=== PATIENT | female | born 1935 | race Caucasian/White ===

== ENCOUNTER → 2022-11-13 10:07 | Outpatient (CLI) | payer MEDICARE, SELFPAY ==
[2022-11-13 12:38] LABS: COVID19 -Nasal RAPID Negative (Negative)
== END ==
PROVIDERS: PCP Registered Nurse; Referring Provider Orthopaedic Surgery; Visit Provider Orthopaedic Surgery
DX: Z20.822 Contact with and (suspected) exposure to COVID-19 (principal)
CPT/HCPCS: 87635; C9803

== ENCOUNTER 2022-11-17 09:59 | Day surgery (SDC) | payer MEDICARE, SELFPAY ==
[2022-11-10 12:53] VITALS: BMI 27.1
[2022-11-16 16:23] VITALS: BP 113/46; PULSE 45; RESP 16; TEMP 36.2; O2SAT 97
[2022-11-16 17:00] VITALS: O2SAT 97
[2022-11-17] VITALS (14 sets, daily range): BP systolic 90–150; BP diastolic 40–70; PULSE 44–57; RESP 11–18; TEMP 35.9–36.8; O2SAT 91–99; BMI 27.1
[2022-11-17] MEDS: LACTATED RINGERS 1,000 ML 42 ML IV ×2 (10:51→13:39)
[2022-11-17 10:59] LABS: COVID19 -Nasal RAPID Negative (Negative)
[2022-11-17] MEDS: ACETAMINOPHEN 325 MG TABLET 975 MG PO (11:03)
[2022-11-17] MEDS: VANCOMYCIN 1,000 MG/200 ML PIGGYBACK 200 MG IV (11:03)
[2022-11-17] MEDS: CELECOXIB 200 MG CAPSULE PO (11:05)
--- NOTE | 2022-11-17 11:21 | PM.PREOP ---
Pre-operative Note COVID-19 COVID-19 status: Negative Interval Note History & Physical reviewed/Exam performed by Physician: Yes Changes to H&P: No
--- NOTE | 2022-11-17 11:22 | PM.OP.1 ---
Operative Date/Time/Diagnoses Date of procedure: 11/17/22 Time of procedure: 12:00 Pre-op diagnosis: Right hip osteoarthritis Post-op diagnosis: same Procedure & Clinicians Procedure: Right total hip arthroplasty anterior approach Same procedure as scheduled: Yes Indications: The patient has had progressively worsening right hip pain with radiographic changes consistent with arthritis. Non-operative management has failed and the patient has requested total hip replacement. The risks, benefits and alternatives to surgery were discussed with the patient prior to proceeding. Risks discussed included, but were not limited to, failure to relieve pain, leg length discrepancy, dislocation, stiffness, infection, nerve damage, deep venous thrombosis, pulmonary embolism, stroke, coma, heart attack, permanent paralysis and , as well as the potential need for eventual revision of the prosthetic. Surgeon: Michelle Kerr Stencil Machine Operator: Carmen Alves Anesthesia Type: General and Spinal Operative Notes Findings: Severe right hip osteoarthritis, adequate bone and stability Closure Type: primary Specimen(s): none sent Prosthetic devices, grafts, tissues, transplants, or devices: Kerr [employer] Nephew R3 52, neutral poly liner,one 6.5 mm screw, anthology standard offset size 9 standard offset, 36 by -3 Estimated Blood Loss (mL): 250 Blood products transfused: none Procedure in detail: The patient was brought to the operating room. Patient was carefully positioned in the supine position. Time-out was performed and antibiotics were given. Anesthesia was induced. She was positioned in the on the table in order to allow hyperextension of the hip. The right lower extremity was prepped and draped in a standard sterile fashion. An anterior right hip incision was made 1 fingerbreadth lateral to the anterior superior iliac spine and extended distally towards the greater trochanter. Dissection was carried out through skin and subcutaneous tissues. Superficial hemostasis was achieved. The fascia over the tensor fascia edgar was defined and incised with a knife. Two Allis clamps were used to grasp the fascia. Tensor fascia edgar was retracted laterally. A gelpi retractor was placed. Dissection was carried out down along the neck. The circumflex vessels were carefully identified and cauterized with the Aqua Mantis. There was good visualization of the femoral neck. A Cobra was placed superior to the neck and the gluteus fibers were carefully stripped from that superior aspect of the capsule. A 2nd retractor was placed along the inferior aspect of the neck. The rectus insertion along the capsule was partially released. A 3rd retractor that was then gently placed over the rim of the acetabulum under the rectus. Capsule was carefully incised and released from the intertrochanteric line circumferentially superior to the mid sagittal line and inferiorly to the mid sagittal line until the lesser trochanter was palpable. A tag stitch was placed both in the superior and inferior limb of the capsular insertion. Along the acetabulum capsule was also released up to the mid sagittal 12:00 position. A portion of the labrum was resected. A saw was used to perform an osteotomy at the level of the intertrochanteric line and the junction of the superior femoral neck leaving approximately 1 finger breath of residual inferior neck above the lesser trochanter. A 2nd cut was made along the femoral neck at the base of the head and a napkin ring of neck was removed. Corkscrew was placed in the femoral head and the head was removed without difficulty. Retractors were then repositioned around the acetabulum. Residual labrum was resected and additional osteophytes were removed. A reamer that was 4 mm below the templated size was placed by hand in the acetabulum and it was reamed to centralize the acetabulum. It was then reamed up to 2 under the templated size and fluoroscopy was brought in to confirm the position of the reaming and depth of reaming. I reamed 1 under the anticipated size. A trial cup was placed and noted that it was appropriately sized and fluoroscopy confirmed position and depth. The component was open and inserted without difficulty fluoroscopic imaging was used to confirm that the cup had been adequately seated and was well positioned. It was further stabilized with a single screw. Neutral poly liner was placed. The cup was tested and noted to be stable. Attention was then directed to the femur. The femur was gently hyperextended additional capsular release was performed as needed in order to allow adequate visualization of the proximal femur with elevation of the femur. Patient was placed in a hyperextended slightly adducted position with maximum external rotation. Box osteotome was used to check for any residual neck as well as sclerotic bone along the trochanter. [place] pepper was placed in the femur. Additional broaching was performed. Canal finder was used to determine the alignment of the canal and position. Size 1 broach was placed. The canal was then appropriately broached up to the templated size as long as there was adequate stability of the broach and serial advancement of the broach without excessive impingement. Specific attention was directed at avoiding varus attempting to direct the distal aspect of the broach more anteriorly and avoiding excessive anteversion. Trial reduction showed acceptable range of motion, good stability, no posterior impingement, sabianism of leg length and appropriate lateral shuck. I also hyperflexed the hip and checked that there was no impingement anteriorly and there was good stability with flexion, adduction and internal rotation. Marcaine and Exparel were injected. The stem was placed without difficulty. Repeat trial reduction and x-ray showed acceptable overall position, length, and no evidence of the femoral fracture. Final head was placed. Wound was meticulously irrigated with normal saline. The hip was reduced and additional Exparel and Marcaine were injected. The capsule was closed with interrupted nonabsorbable sutures. The fascia of the tensor was closed with interrupted and running Vicryl. No drain was placed. Any tensor fascia edgar muscle that appeared to be contused or injured which was a minimal amount was carefully resected. Capsule around the tensor was injected with Exparel and Marcaine. The skin was closed with barbed stitches for the subcutaneous tissue and skin. We also used surgical glue. The wound was dressed sterilely. Brief Betadine soak was also used and was meticulously irrigated with normal saline. Patient was transferred to recovery room in satisfactory condition. Complications: none Post-operative Condition: stable Disposition: Acute Care Plan for aftercare: The patient will be maintained on a standard total hip replacement protocol with weight bearing as tolerated and anterior hip precautions. The patient will receive Aspirin and sequential compression devices for DVT prophylaxis. The patient will be discharged home when safe for the home environment.
--- NOTE | 2022-11-17 11:52 | SUR.OPER ---
Supine on padded Esko table with bilateral legs secured in padded positioning boots and suspended in positioning spars, operative leg in traction per surgeon. Head on one pillow. Arm on non-operative side secured on padded armboard <90 degrees abduction. Arm on operative side padded and resting across chest then secured with tape over sheet. Padded perineal post in place per surgeon.
[2022-11-17] MEDS: CEFAZOLIN 2 GM/100 ML PREMIX 100 ML IV ×2 (12:10→20:06)
[2022-11-17] MEDS: BUPIVACAINE LIPOSOME 266 MG/20 ML VIAL INJ (12:54)
[2022-11-17] MEDS: BUPIVACAINE 0.5% W/ EPI (PF) 30 ML VIAL INJ (12:54)
[2022-11-17] MEDS: TRANEXAMIC ACID 1,000 MG VIAL 2000 MG INJ ×2 (12:55→14:13)
--- NOTE | 2022-11-17 14:18 | DI.RAD.S_ITS ---
PROCEDURE: XR HIP W PEL IF DONE RT 2V INDICATIONS: TOTAL RIGHT HIP TECHNIQUE: 4 intraoperative fluoroscopic images of right hip acquired. COMPARISON: None. FINDINGS: Intraoperative fluoroscopic images shows right total hip arthroplasty in progress. Right hip alignment is anatomic. IMPRESSION: Fluoro guidance was provided intraoperatively for right total hip arthroplasty. Dictated by: Dionisio Goel M.D. on 11/17/2022 at 14:36 Approved by: Dionisio Goel M.D. on 11/17/2022 at 14:36
--- NOTE | 2022-11-17 14:20 | DI.RAD.S_ITS ---
PROCEDURE: XR HIP W PEL IF DONE RT 2V INDICATIONS: TOTAL RIGHT HIP REPLACEMENT TECHNIQUE: AP pelvis and lateral view of the right hip acquired. COMPARISON: [facility], CR, XR HIP W PEL IF DONE RT 2V, 11/17/2022, 14:37. [facility], CR, XR PELVIS WITH LATERAL HIP RIGHT, 03/21/2022, 15:25. FINDINGS: Bones: Patient is status post right hip arthroplasty, with hardware components in expected positions. The hip joint appears congruent. The visualized bony structures appear intact. At least moderate degenerative change is seen of the contralateral left hip. Age-appropriate lower lumbar spine degenerative changes are noted. Soft tissues: Overlying postoperative changes are noted. No suspicious soft tissue densities. IMPRESSION: Normal postoperative examination. At least moderate degenerative change is seen of the contralateral left hip. Dictated by: Nickolas Bonilla M.D. on 11/17/2022 at 16:55 Approved by: Nickolas Bonilla M.D. on 11/17/2022 at 16:56
[2022-11-17] MEDS: LACTATED RINGERS 1,000 ML 125 ML IV ×2 (16:00→23:27)
[2022-11-17] MEDS: ASPIRIN EC 81 MG TABLET PO (20:06)
[2022-11-17] MEDS: VERAPAMIL 120 MG TABLET PO (20:06)
[2022-11-17] MEDS: DOCUSATE 100 MG CAPSULE PO (20:06)
[2022-11-17] MEDS: ACETAMINOPHEN 325 MG TABLET 650 MG PO (23:24)
[2022-11-17] MEDS: IBUPROFEN 400 MG TABLET PO (23:24)
[2022-11-18 03:40] VITALS: BP 148/63; PULSE 60; RESP 17; TEMP 36.5; O2SAT 92
--- NOTE | 2022-11-18 04:44 | PC.NURSE ---
Pt is AxOx4, needs 1 person geriatric nurse assistant with FWW and cooperative. Pt denies pain. Scheduled Tylenol and Ibuprofen seems helping her pain. Dressing on R hip is C/D/I. Pt uses commode. Pt slept all night. No other changes. Continue monitor...
[2022-11-18 05:34] LABS: Hematocrit 35.9 % (36-46); Hemoglobin 12.4 g/dL (12.0-16.0)
--- NOTE | 2022-11-18 07:22 | P.DS_ITS ---
History of Present Illness History of Present Illness Date Patient Seen: 11/18/22 Time Patient Seen: 07:22 Chief complaint: Hip pain Narrative: Pain is [id number]. Denies fever or chills. No nausea or vomiting. Discharge Providers Provider Discharge Date: 11/18/22 Primary care physician: NAKITA Cole Consults: 11/16/22 06:00 Consult to Anesthesiology Routine Comment: Consulting Provider: Anesthesiologist Reason for consultation: Regional block for post operative pain control 11/17/22 15:41 Consult to Discharge Planning Routine Comment: Consult to Physical Therapy Evaluate & Treat Comment: Physician Instructions: post op [facility] protocol Discharge provider: Suman Amador PA-C Summary Hospital Course Discharge Diagnosis: Severe right hip osteoarthritis Hospital Course: Same procedure as scheduled: Yes Indications: The patient has had progressively worsening right hip pain with radiographic changes consistent with arthritis. Non-operative management has failed and the patient has requested total hip replacement. The risks, benefits and al ternatives to surgery were discussed with the patient prior to proceeding. Risks discussed included, but were not limited to, failure to relieve pain, leg length discrepancy, dislocation, stiffness, infection, nerve damage, deep venous thrombosis, pulmonary embolism, stroke, coma, heart attack, permanent paralysis and , as well as the potential need for eventual revision of the prosthetic. Surgeon: Michelle Kerr Casino Duty Manager: Carmen Alves Anesthesia Type: General and Spinal Operative Notes Findings: Severe right hip osteoarthritis, adequate bone and stability Closure Type: primary Specimen(s): none sent Prosthetic devices, grafts, tissues, transplants, or devices: Kerr [employer] Nephew R3 52, neutral poly liner,one 6.5 mm screw, anthology standard offset size 9 standard offset, 36 by -3 Estimated Blood Loss (mL): 250 Patient admitted to the hospital for the above-mentioned procedure. Patient consented to the same. Patient taken to the operating room underwent right total hip arthroplasty, Right total hip arthroplasty anterior November 17, 2019. Patient back in their room recovering well as in stable condition. Patient will be condition if safe for home environment after physical therapy. Status at Discharge Cognitive/behavioral status at discharge: oriented Functional status at discharge: uses cane/walker Overall status at discharge: patient is progressing back to baseline Exam Vital Signs (past 8 hours): - 11/17/22 23:30 11/18/22 03:40 Temperature 98.2 F 97.7 F Pulse Rate 52 L 60 Respiratory Rate 16 17 Blood Pressure 142/60 H 148/63 H Pulse Oximetry 93 92 Oxygen Flow Rate 0 0 Oxygen Delivery Method Room Air Oxygen Flow Rate 0 Narrative Exam Narrative: 86-year-old in no acute distress. Dressing is clean, dry and intact. Motor functions intact bilateral lower extremities. Sensation grossly intact to light touch bilateral lower extremities. Const General: cooperative and comfortable Resp Effort & Inspection: normal respiratory effort Objective Labs Result Diagrams: 11/18/22 05:11 Labs: Laboratory Results - last 24 hr 11/17/22 11/18/22 10:33 05:11 Hgb 12.4 Hct 35.9 L SARS-CoV-2 (PCR) Negative PFSH Medical History Gout HTN (hypertension) Osteoarthritis Surgical History History of total right knee replacement (2001) Hx of appendectomy Hx of tonsillectomy Social History household members: none Smoking Status: Former smoker alcohol intake: current Discharge Assessment & Plan Assessment and Plan Assessment: Patient progressing as expected status post right total hip arthroplasty, anterior approach Plan of Treatment: Anterior hip precautions, weight-bearing as tolerated PT Multimodal pain management Aspirin and SCDs for DVT prophylaxis Likely discharge home today after physical therapy if safe for home environment. Discharge Plan Discharge Plan Patient Disposition: Home Discharge orders & Medications Discharge Orders: Discharge (Order); Ordered 11/18/22 Ordered By: Suman Amador Prescriptions: New acetaminophen 325 mg Tablet 650 mg PO Q6HR Qty: 60 0RF aspirin 81 mg Tablet,Delayed Release (Dr/Ec) 81 mg PO BID Qty: 60 0RF ibuprofen 400 mg Tablet 400 mg PO Q6HR Qty: 60 0RF oxycodone 5 mg Tablet 5 mg PO Q3HR PRN (Reason: Pain, Moderate (4-6)) Qty: 40 0RF Continued verapamil 120 mg Tablet 120 mg PO BID allopurinol 300 mg Tablet 300 mg PO DAILY hydrochlorothiazide 25 mg Tablet 25 mg PO DAILY atenolol 50 mg Tablet 50 mg PO BID Follow up/Referrals: Jackie Castellanos ARNP [Primary Care Provider] - Michelle Kerr MD [Physician] - As previously scheduled (Follow up with Dr Kerr on 12/01/2022 @ 3:30 pm at [facility] office in [place].) Diet/Activity/Treatments Diet: Diet as Tolerated Activity: Weight bearing as tolerated on right leg. Anterior hip precautions. Skin/Wound/Dressing Care Report to your healthcare provider any signs of infection, such as:: chills, fever, night sweats, unusual drainage and unusual redness Dressing: May shower. Leave Aquacel dressing in place until follow up appointment. No bathing or otherwise soaking incision. Call the office if dressing becomes saturated inside. Visit Report/Discharge Packet Instructions: DI for Hip Replacement Stand Alone Forms: Surgery Discharge Discharge Data Primary Care Provider: Jackie Castellanos Attending Provider: Michelle Kerr
[2022-11-18] MEDS: CEFAZOLIN 2 GM/100 ML PREMIX 100 ML IV (08:08)
[2022-11-18] MEDS: ASPIRIN EC 81 MG TABLET PO (08:31)
[2022-11-18] MEDS: DOCUSATE 100 MG CAPSULE PO (08:31)
[2022-11-18] MEDS: ACETAMINOPHEN 325 MG TABLET 650 MG PO (08:31)
[2022-11-18] MEDS: atenoloL 50 MG TABLET PO (08:31)
[2022-11-18] MEDS: allopurinoL 300 MG TABLET PO (08:32)
[2022-11-18] MEDS: hydroCHLOROthiazide 25 MG TABLET PO (08:32)
[2022-11-18] MEDS: VERAPAMIL 120 MG TABLET PO (08:36)
[2022-11-18] MEDS: IBUPROFEN 400 MG TABLET PO (08:36)
--- NOTE | 2022-11-18 08:41 | CM.DANOTE ---
Initial DCP Assessment Note Pt is an 86 yo female, resident of [place], now POD#1 from right total hip arthroplasty, anterior approach by Dr Kerr PCP: Jackie Castellanos Payer: [facility] MCR Reviewed chart, pt has planned for DC home w/friend to assist, outpatient PT. DC order and summary have been placed by JUSTIN Amador. Now awaiting rec from PT to ensure patient safe for home environment. No barriers identified at this time to patient's safe discharge home w/family to assist; close outpatient f/u recommended. Awaiting PT recommendation and following closely for any DC needs or concerns that may arise ROSA Jason Discharge Planning/Care Management CM Discharge Assessment Start: 11/18/22 08:36 Freq: Status: Active Protocol: Document 11/18/22 08:36 ARMIDA (Rec: 11/18/22 08:40 ARMIDA [id number]) Discharge Planning Assessment Assigned Test Deskman ROSA Lora DPOA/Assigned Designee Name Assigned contact: karen Lovett Contact Information [phone] Advance Directives? Yes Advance Directives on File No History Provided By Medical Record Prior Living Arrangements House Household Members none Type of transporation used prior to Drives own vehicle admit Comment Patient is indp at her baseline Independent with ADL's Yes Is patient alert and oriented? Yes Patient/Family Preference OP PT Therapy Barriers to Discharge No Comment Thus far, it appears patient is a good candidate for return home w/her friend to assist her, outpatient therapies. CM team will plan to follow closely today for PT rec Discharge Plan Home Transportation Arrangement Friend Referrals Initiated None needed Additional Comment Following for DCP needs
--- NOTE | 2022-11-18 08:45 | PT.IIE ---
Current Diagnoses Unilateral primary osteoarthritis, right hip (11/17/22) Surgery Performed Operation Date: 11/17/22 12:15 Actual Procedures p Total Hip Arthroplasty/Anterior Approach(Right) - Michelle Kerr MD Surgical History (Last Reviewed 11/18/22 @ 07:25 by Suman Amador PA-C) History of total right knee replacement (2001) Hx of appendectomy Hx of tonsillectomy Medical History (Last Reviewed 11/18/22 @ 07:25 by Suman Amador PA-C) Gout HTN (hypertension) Osteoarthritis Physical Therapy Inpatient Evaluation/Re-Eval M1 PT/OT-IP Prior Functional Status Start: 11/18/22 14:52 Freq: NEEDED Status: Active Protocol: Document 11/18/22 08:45 AB (Rec: 11/18/22 15:13 AB [id number]) Medical Review Prior Functional Status Medical History Reviewed Yes Communication able to make needs known Mobility and Gait pt stated that she is modified independent without AD but has been using a SPC for the last few months due to pain Social History Household Members none Living Arrangements House Number of Floors (Floors) One Floor Number of Stairs To Enter/Railing? 1 step to enter Home Environment High Toilet,Tub/Shower Home Equipment Four Wheel Walker,Bedside Commode,Shower Seat without Backrest,Grab Bars In Shower Additional Social History Comment pt stated that her friend will stay with her for ~ 3 days to help her M2 PT-IP Current Condition Start: 11/18/22 14:52 Freq: NEEDED Status: Active Protocol: Document 11/18/22 08:45 AB (Rec: 11/18/22 15:13 AB [email or web address]) Physical Therapy Current Condition Current Condition Evaluation Date 11/18/22 Treatment Diagnosis s/p R NYLA anterior approach; difficulty in walking Onset Date 11/17/22 M3 PT-IP Subjective Start: 11/18/22 14:52 Freq: NEEDED Status: Active Protocol: Document 11/18/22 08:45 AB (Rec: 11/18/22 15:13 AB [email or web address]) Subjective Physical Therapy Visit Type Type Initial Evaluation Visit Start Time 08:45 Visit Stop Time 09:55 Total Visit Minutes 70 Number of B[employer] OPERATOR Visits 0 Physical Therapy Visit Comments Patient Comments agreeable to do PT Therapy Pain Assessment Pain Present Pain Present Denied Pain M4 PT-IP Mobility and Gait Start: 11/18/22 14:52 Freq: NEEDED Status: Active Protocol: Document 11/18/22 08:45 AB (Rec: 11/18/22 15:13 AB [id number]) PT-Bed Mobility Assessment Supine to Sit Supine to Sit Standby Assistance PT-Transfer Assessment Sit to and From Stand Sit to and from Stand Standby Assistance,1 Person Assistance,Use of Upper Extremities Transfers Transfer Destination Chair,Toilet Transfer Technique ambulated Transfer Ability Level of Assist Standby Assistance,1 Person Assistance,Use of Upper Extremities Comments Mobility Comments educated pt on anterior hip precautions. pt initially requires cues but after a few repetitions, able to recall. completed supine to sit SBA. requested to use the toilet. completed sit to stand cGA and ambulated to the toilet using fWW SBA to CGA. completed toileting SBA and ambulated to the sink using FWW SBA. cued for hip precautions. ambulated to the chair using FWW SBA. pt has a 4WW. Assess ambulation using 4WW. educated on use of 4WW , locking/unlocking. pt completed sit to stand from chair SBA and ambulated using 4WW SBA to CGA but cues for anterior hip precautions as pt tends to take big strides with LLE. pt sat back on chair . pt educated on stair climbing. ambulated towards platform step using 4WW SBA to CGA. completed up/down step requiring assist with 4WW max A. pt requires max cues for safety and techniques. repeated x 4 but pt continues to require max cues. ambulated back to her room. informed pt that caregiver training needs to be conducted with her friend but pt refused. stated that PT should train her and not her friend. informed pt that PT will do one more but if pt still requires cues, then caregiver training needs to be conducted prior to d/c. also informed pt that a FWW will be recommended due to pt unable to manage a 4WW with stairs and also getting confused with the brakes. pt stated that her friend who lives 2 min away has a FWW she can use. pt ambulated towards the platform step using FWW sBA and completed up/down step using FWW CGA. ambulated 50 ft using FWW SBA and completed up/down step again using FWW CGA and no cues provided. pt ambulated back to her room and sat back on her chair. reviewed her precautions and stair climbing and pt able to recall. positioned on chair. call light and table placed within reach. Gait Assessment Gait Gait Assistance Required: Standby Assistance,Contact Guard Assist Distance (Feet) 50 Able to Maintain Weight Bearing Status Yes During Gait Assistive Devices Assistive Device Gait Belt,Front Wheeled Walker ,4 Wheeled Walker Orthotic/Prosthetic Devices or Brace: No Gait Deviations General Gait Pattern Decreased Feet Clearance Factors Limiting Gait Function Factors Limiting Gait Function Decreased Activity Tolerance, Decreased Strength,Limited Range of Motion,Pain,Poor Balance,Poor Safety Awareness Stair Climbing Assessment Evaluation Level of Assist On Stairs Contact Guard Assistance,2 Person Assistance Devices Stair Climbing Assistive Devices Front Wheel Walker,Four Wheel Walker Technique/Endurance Stair Climbing Direction Ascend and Descend Stair Climbing Technique Step to Step Number of Steps Climbed 1 Query Text: Stair Climbing Set # Repetitions (reps) 6 Comments Stair Climbing Comments pls refer to mobility section for details PT-Balance Assessment Sitting Balance and Reactions Static Sitting Balance Ability Normal Dynamic Sitting Balance Ability Good Standing Balance and Reactions Static Standing Balance Ability Fair Dynamic Standing Balance Ability Fair Device Used FWW M5 PT-IP Objective Assessments Start: 11/18/22 14:52 Freq: NEEDED Status: Active Protocol: Document 11/18/22 08:45 AB (Rec: 11/18/22 15:13 AB [id number]) Orientation Orientation/Cognition Level of Alertness Alert Orientation Name Language Function Ability No Deficits Noted Safety Awareness Decreased Safety Awareness Memory Description Short Term Impaired Gross Range of Motion Lower Extremity ROM Assessment Within Functional Limits Strength Lower Extremity Strength Assessment Right Impaired Hip 3+/5 Knee 4-/5 Coordination Assessment Gross Coordination Gross Coordination WNL Muscle Tone Muscle Tone WNL Yes M6 PT-IP Treatment Start: 11/18/22 14:52 Freq: NEEDED Status: Active Protocol: Document 11/18/22 08:45 AB (Rec: 11/18/22 15:13 AB [email or web address]) Physical Therapy Treatment Education Education Provided Precautions,Weight Bearing Status,Post-Op Packet,Safety M7 PT-IP Assessment and Plan Start: 11/18/22 14:52 Freq: NEEDED Status: Active Protocol: Document 11/18/22 08:45 AB (Rec: 11/18/22 15:13 AB [email or web address]) PT Summary Assessment and Plan Potential Rehabilitation Potential Fair Status of Condition at Evaluation Evolving Summary Impairments Pain,ROM,Strength,Balance, Coordination,Sensation,Tone, Cognition,Bed Mobility, Transfers,Gait,Activity Tolerance Assessment Summary pt requiring SBA to CGA with mobility and recommending use of FWW for safety at this time . pt initially requires max cues for hip precautions and stair climbing techniques but able to complete without cues after a few repetitions. pt refuse to do caregiver training. Goals Bed Mobility Goal Independent Transfer Goal Independent,Front Wheeled Walker,Four Wheeled Walker Gait Goal Independent,Front Wheel Walker ,Four Wheel Walker Gait Distance 200 Other Goals up/down 1 step using FWW mod I Days to Meet Goals 5 Frequency of Treatment Frequency Of Treatment Twice a Day Treatment Plan Physical Therapy Treatment Plan Bed Mobility Training,Transfer Training,Gait Training, Therapeutic Exercise,Balance Retraining,Post Op Education, Discharge Planning,Hot or Cold Pack,Neuromuscular Re-ed, Coordination Retraining,Manual Therapy Precautions Anterior Hip Precautions No Hip Extension,No Hip External Rotation Weight Bearing Status Weight Bearing Status Weight Bear as Tolerated Allowed Weight Bearing Amount (enter % RLE WBAT or #) (%) Recommendations To Nursing Amount of Assist Needed 1 Person Assist Discharge Recommendations PT Discharge Recommendations Home with Assistance, Outpatient PT Equipment Needed for Home Before FWW Discharge Transportation Needs at Discharge Private Vehicle
[2022-11-18 08:59] VITALS: BP 136/58; PULSE 63; RESP 18; TEMP 35.9; O2SAT 96
--- NOTE | 2022-11-18 11:26 | PC.NURSE ---
Pt is A&Ox3. VSS, afebrile on RA. She is tolerating po diet well w/o n/v. She is able to ambulate x1 assist using FWW to BR. Chana MOY at bedside this a.m. clearing patient for discharge home pending PT. She verbalizes understanding of hip precautions, and site care. Pt is cleared for physical therapy this a.m. and patient is determined to discharge home. Her friend (emergency contact) Miguel is notified for transportation and arrives at 1110 to transport patient home. She acknowledges medication instructions, s/sx of infection/complication as well as follow up appointment plan with Ortho previously made. She is escorted by RN via w/ch with her personal FWW and all belongings to private vehicle with her friend Miguel at approximately 1115 a.m.
== END 2022-11-18 11:15 | disposition home or self-care (01) ==
LOC: OR 10:02 → AC 10:02
PROVIDERS: PCP Registered Nurse; Referring Provider Orthopaedic Surgery; Visit Provider Orthopaedic Surgery
PROC: (CPT 27130; principal; 2022-11-17 12:15)
DX: M16.11 Unilateral primary osteoarthritis, right hip (principal); I10 Essential (primary) hypertension; M25.751 Osteophyte, right hip
CPT/HCPCS: 27130; 36415; 73502; 85014; 85018; 87635; 97116; 97162; 97530; C1776; C9803; C9290; J0690; J2704; J3010

== ENCOUNTER 2022-12-05 11:47 | Inpatient (IN) | payer MEDICARE, SELFPAY ==
[2022-12-05] VITALS (26 sets, daily range): BP systolic 102–125; BP diastolic 47–59; PULSE 53–63; RESP 16–28; TEMP 36.1–36.9; O2SAT 91–97; BMI 28.1
--- NOTE | 2022-12-05 13:31 | DI.CT.S_ITS ---
PROCEDURE: CT LE RT W CON INDICATIONS: Suspected abscess s/p right hip replacement 6 weeks ago TECHNIQUE: After the administration of intravenous contrast, 3 mm axial sections acquired of the right hip , with coronal and sagittal reformats. COMPARISON: None. FINDINGS: Image quality: Excellent. Bones: Right hip arthroplasty components are present. There are no unexpected fractures. No periprosthetic lucency. No suspicious bone erosion. Incidental note made partially imaged right knee arthroplasty components Soft tissues: There is a thin-walled, but peripherally enhancing fluid collection deep to the superficial fascia overlying the quadriceps muscle this measures approximately 4.2 cm in transverse diameter maximally, about 8.9 cm in length, and about 1.6 cm in maximal thickness. Irregular, ill-defined intramuscular fluid and inflammation extends into the proximal tissues. Along the most cranial aspect, there are a few foci of soft tissue gas. Most of the inflammatory fat stranding extends lateral, away from the prosthesis. A joint effusion cannot be entirely excluded, but there is no soft tissue gas seen adjacent to bone or prosthetic components. Intrapelvic soft tissues are within normal limits.. IMPRESSION: 1. There is a fluid collection deep to the superficial fascia with mild peripheral enhancement and a few scattered foci of gas suspicious for infection by gas-forming organism. 2. No evidence of osteomyelitis by CT. 3. No definite joint effusion or secondary signs to suggest joint involvement. 4. Discussed with Dr. Burton in the emergency room at 14:15 [place] standard time. Dictated by: Sylvia Sosa M.D. on 12/05/2022 at 13:55 Approved by: Sylvia Sosa M.D. on 12/05/2022 at 14:17
--- NOTE | 2022-12-05 13:38 | ED.EXTPRO ---
HPI - Extremity Problem <NAKITA Bee - Last Filed: 12/05/22 16:28> General Chief complaint: Extremity Problem,Nontraumatic Stated complaint: wound infection Time Seen by Provider: 12/05/22 13:19 Source: patient and EMS Mode of arrival: EMS History of Present Illness HPI Narrative: 87-year-old female, former smoker with history of hypertension and right hip replacement surgery x6 weeks ago, presents to the emergency department with brownish drainage from her right hip incision and increasing pain with movement or weight-bearing. Patient states that she saw her surgeon, Dr. Kerr, last week and was able to work at the incision to obtain a wound culture. Patient states the following day the site had drain copious amounts of brownish fluid. Patient denies any swelling prior to the drainage. Patient states that the pain is now so severe she can not stand, which she was able to do so after her hip surgery and prior to her appointment with her surgeon. Related Data Home Medications Medication Instructions Recorded Confirmed allopurinol 300 mg tablet 300 mg PO DAILY 11/10/22 11/17/22 atenolol 50 mg tablet 50 mg PO BID 11/10/22 11/17/22 hydrochlorothiazide 25 mg tablet 25 mg PO DAILY 11/10/22 11/17/22 verapamil 120 mg tablet 120 mg PO BID 11/10/22 11/17/22 Previous Rx's Medication Instructions Recorded acetaminophen 325 mg tablet 650 mg PO Q6HR #60 tabs 11/18/22 aspirin 81 mg tablet,delayed 81 mg PO BID #60 tabs 11/18/22 release ibuprofen 400 mg tablet 400 mg PO Q6HR #60 tabs 11/18/22 oxycodone 5 mg tablet 5 mg PO Q3HR PRN Pain, Moderate 11/18/22 (4-6) #40 tabs Allergies Allergy/AdvReac Type Severity Reaction Status Date / Time No Known Drug Allergies Allergy Verified 11/17/22 10:26 Review of Systems <NAKITA Bee - Last Filed: 12/05/22 16:28> Review of Systems Narrative: Narrative: See HPI. GENERAL: Denies chills, fatigue, fever, sweats. HEENT: Denies sinus pain, ear pain, sore throat, difficulty swallowing, dizziness. RESPIRATORY: Denies dyspnea, cough, wheezing, sputum. CARDIOVASCULAR: Denies chest pain, palpitations, edema. GASTROINTESTINAL: Denies nausea, vomiting, abdominal pain, diarrhea, constipation. : Denies dysuria, frequency, incontinence, hematuria, urinary retention, flank pain. MSK: Denies weakness. Endorses right hip pain. SKIN: Denies rash, skin lesions, or pruritis. Endorses brownish discharge from right hip surgical site. NEUROLOGIC: Denies weakness, dizziness, headache, numbness, confusion. PSYCHIATRIC: No concerning psychosocial issues. Patient History <NAKITA Bee - Last Filed: 12/05/22 16:28> Medical History Gout HTN (hypertension) Osteoarthritis Surgical History History of total right knee replacement (2001) Hx of appendectomy Hx of tonsillectomy Social History household members: none Smoking Status: Former smoker alcohol intake: current Smoking Status: Former smoker alcohol intake frequency: a few times a month Substance Use Type: does not use Exam <NAKITA Bee - Last Filed: 12/05/22 16:28> Narrative Exam Narrative: Exam Narrative: GENERAL: This is a well-nourished, well-developed patient, in no acute distress. HEAD: Atraumatic. Normocephalic. EYES: Pupils equal round and reactive. Extraocular motions intact. No scleral icterus, injection or drainage. ENT: Nose without bleeding, purulent drainage. Throat without erythema, tonsillar hypertrophy or exudate. Uvula midline. Airway patent. TMs and canals clear. No sinus tenderness. NECK: Trachea midline. No JVD or lymphadenopathy. Nontender. CARDIOVASCULAR: Regular rate and rhythm without murmurs, peripheral pulses intact, cap refill <2 sec. RESPIRATORY: Breath sounds equal and clear bilaterally. No wheezes, rales, or rhonchi. No cough. No increased respiratory effort. No accessory muscle use. GASTROINTESTINAL: Abdomen soft, non-tender, nondistended without guarding or rebound. No suprapubic pain. MSK: Moves all extremities. Normal range of motion, no clubbing or edema. Neurovascularly intact. NEURO: A&O x 3. Positive pedal pulses and normal CMS. SKIN: Warm, dry, no rashes or lesions noted. Positive brownish drainage from proximal surgical site. No signs of increased redness, swelling, fluctuance or red streaking. Initial Vital Signs Initial Vital Signs: Vital Signs Pulse Rate 63 12/05/22 12:12 Respiratory Rate 19 12/05/22 12:12 Blood Pressure 122/59 L 12/05/22 12:12 Pulse Oximetry 94 12/05/22 12:12 Reviewed <Maddie Burton DO - Last Filed: 12/05/22 18:40> Initial Vital Signs Initial Vital Signs: Vital Signs Pulse Rate 63 12/05/22 12:12 Respiratory Rate 19 12/05/22 12:12 Blood Pressure 122/59 L 12/05/22 12:12 Pulse Oximetry 94 12/05/22 12:12 Course <NAKITA Bee - Last Filed: 12/05/22 16:28> Orders Ordered: ED Orders 12/05/22 12:15 Complete Blood Count AUTO DIFF Stat Comprehensive Metabolic Panel Stat Lactate (Lactic Acid) Stat 12/05/22 12:19 MAG [Magnesium] Stat 12/05/22 12:22 Blood Culture Stat Procalcitonin Stat 12/05/22 13:31 CT LE RT w con Stat 12/05/22 14:01 Wound Culture and Gram Stain Stat 12/05/22 14:08 EKG-12 Lead Stat Discontinued Medications Vancomycin HCl (Vancomycin) 1,250 mg in 250 mls @ 250 mls/hr IV NOW ONE Stop: 12/05/22 15:08 Last Infusion: 12/05/22 15:51 Dose: 0 mls/hr Documented By: Admin: 12/05/22 14:16 Dose: 250 mls/hr Documented By: SIMA Piperacillin Sod/Tazobactam (Sod 4.5 gm/ Sodium Chloride) 100 mls @ 200 mls/hr IV NOW ONE Stop: 12/05/22 15:16 Last Infusion: 12/05/22 16:40 Dose: 0 mls/hr Documented By: Infusion: 12/05/22 16:06 Dose: 200 mls/hr Documented By: Infusion: 12/05/22 15:43 Dose: 0 mls/hr Documented By: Admin: 12/05/22 15:43 Dose: 200 mls/hr Documented By: SIMA Potassium Chloride (Potassium Chloride 20 Meq/15 Ml Udc) 40 meq PO NOW ONE Stop: 12/05/22 14:02 Last Admin: 12/05/22 14:12 Dose: 40 meq Documented By: SIMA Consultations Consultation #1: Dr. Ramsey of Orthopedics. Recommended patient be admitted to Medicine with consultation to Orthopedics and Dr. Kerr will evaluate her tomorrow. Consultation #2: Dr. Sinhg, Hospitalist, agreed to admission. Vital Signs Vital signs: Vital Signs - 8 hr 12/05/22 12:29 12/05/22 12:12 12/05/22 12:12 Temperature 98.4 F Pulse Rate 62 63 Pulse Rate [Left Dorsalis Pedis] Respiratory Rate 22 19 Blood Pressure 116/59 L 122/59 L Pulse Oximetry 95 94 Oxygen Delivery Method Room Air Oxygen Flow Rate 12/05/22 12:25 12/05/22 12:25 12/05/22 12:30 Temperature Pulse Rate 62 Pulse Rate [Left Dorsalis Pedis] Respiratory Rate Blood Pressure 116/59 L 113/58 L Pulse Oximetry 92 Oxygen Delivery Method Oxygen Flow Rate 12/05/22 12:30 12/05/22 13:32 12/05/22 12:46 Temperature Pulse Rate 59 L 57 L Pulse Rate [Left Dorsalis Pedis] 60 Respiratory Rate 16 17 Blood Pressure Pulse Oximetry 95 91 Oxygen Delivery Method Oxygen Flow Rate 12/05/22 12:46 12/05/22 13:00 12/05/22 13:00 Temperature Pulse Rate 58 L Pulse Rate [Left Dorsalis Pedis] Respiratory Rate 16 Blood Pressure 107/55 L 120/56 L Pulse Oximetry 92 Oxygen Delivery Method Oxygen Flow Rate 12/05/22 13:15 12/05/22 13:15 12/05/22 13:49 Temperature 97.9 F Pulse Rate 57 L Pulse Rate [Left Dorsalis Pedis] Respiratory Rate 18 Blood Pressure 113/57 L Pulse Oximetry 93 Oxygen Delivery Method Oxygen Flow Rate 12/05/22 13:30 12/05/22 13:30 12/05/22 14:00 Temperature Pulse Rate 60 55 L Pulse Rate [Left Dorsalis Pedis] Respiratory Rate 26 H 17 Blood Pressure 124/56 L Pulse Oximetry 95 95 Oxygen Delivery Method Oxygen Flow Rate 12/05/22 14:30 12/05/22 15:00 12/05/22 15:22 Temperature Pulse Rate 56 L 54 L 54 L Pulse Rate [Left Dorsalis Pedis] Respiratory Rate 24 24 27 H Blood Pressure Pulse Oximetry 94 94 93 Oxygen Delivery Method Oxygen Flow Rate 12/05/22 15:22 12/05/22 15:30 12/05/22 16:00 Temperature Pulse Rate 53 L 55 L Pulse Rate [Left Dorsalis Pedis] Respiratory Rate 28 H 22 Blood Pressure 102/51 L Pulse Oximetry 91 Oxygen Delivery Method Oxygen Flow Rate 12/05/22 16:06 12/05/22 16:06 12/05/22 16:15 Temperature Pulse Rate 57 L Pulse Rate [Left Dorsalis Pedis] Respiratory Rate 22 Blood Pressure 112/54 L 111/53 L Pulse Oximetry 91 Oxygen Delivery Method Oxygen Flow Rate 12/05/22 16:15 12/05/22 16:30 12/05/22 16:30 Temperature Pulse Rate 57 L 56 L Pulse Rate [Left Dorsalis Pedis] Respiratory Rate 22 22 Blood Pressure 105/54 L Pulse Oximetry 92 91 Oxygen Delivery Method Oxygen Flow Rate 12/05/22 16:45 12/05/22 16:45 12/05/22 17:00 Temperature Pulse Rate 55 L Pulse Rate [Left Dorsalis Pedis] Respiratory Rate 20 Blood Pressure 110/53 L 117/56 L Pulse Oximetry 93 Oxygen Delivery Method Oxygen Flow Rate 12/05/22 17:00 12/05/22 17:15 12/05/22 17:15 Temperature Pulse Rate 57 L 55 L Pulse Rate [Left Dorsalis Pedis] Respiratory Rate 22 21 Blood Pressure 109/55 L Pulse Oximetry 93 92 Oxygen Delivery Method Oxygen Flow Rate 12/05/22 17:30 12/05/22 17:30 12/05/22 18:10 Temperature 97.4 F L Pulse Rate 53 L 58 L Pulse Rate [Left Dorsalis Pedis] Respiratory Rate 21 18 Blood Pressure 111/55 L 116/48 L Pulse Oximetry 92 97 Oxygen Delivery Method Oxygen Flow Rate 0 <Maddie Burton, - Last Filed: 12/05/22 18:40> Orders Ordered: ED Orders 12/05/22 12:15 Complete Blood Count AUTO DIFF Stat Comprehensive Metabolic Panel Stat Lactate (Lactic Acid) Stat 12/05/22 12:19 MAG [Magnesium] Stat 12/05/22 12:22 Blood Culture Stat Procalcitonin Stat 12/05/22 13:31 CT LE RT w con Stat 12/05/22 14:01 Wound Culture and Gram Stain Stat 12/05/22 14:08 EKG-12 Lead Stat Discontinued Medications Vancomycin HCl (Vancomycin) 1,250 mg in 250 mls @ 250 mls/hr IV NOW ONE Stop: 12/05/22 15:08 Last Infusion: 12/05/22 15:51 Dose: 0 mls/hr Documented By: Admin: 12/05/22 14:16 Dose: 250 mls/hr Documented By: SIMA Piperacillin Sod/Tazobactam (Sod 4.5 gm/ Sodium Chloride) 100 mls @ 200 mls/hr IV NOW ONE Stop: 12/05/22 15:16 Last Infusion: 12/05/22 16:40 Dose: 0 mls/hr Documented By: Infusion: 12/05/22 16:06 Dose: 200 mls/hr Documented By: Infusion: 12/05/22 15:43 Dose: 0 mls/hr Documented By: Admin: 12/05/22 15:43 Dose: 200 mls/hr Documented By: SIMA Potassium Chloride (Potassium Chloride 20 Meq/15 Ml Udc) 40 meq PO NOW ONE Stop: 12/05/22 14:02 Last Admin: 12/05/22 14:12 Dose: 40 meq Documented By: SIMA Vital Signs Vital signs: Vital Signs - 8 hr 12/05/22 12:29 12/05/22 12:12 12/05/22 12:12 Temperature 98.4 F Pulse Rate 62 63 Pulse Rate [Left Dorsalis Pedis] Respiratory Rate 22 19 Blood Pressure 116/59 L 122/59 L Pulse Oximetry 95 94 Oxygen Delivery Method Room Air Oxygen Flow Rate 12/05/22 12:25 12/05/22 12:25 12/05/22 12:30 Temperature Pulse Rate 62 Pulse Rate [Left Dorsalis Pedis] Respiratory Rate Blood Pressure 116/59 L 113/58 L Pulse Oximetry 92 Oxygen Delivery Method Oxygen Flow Rate 12/05/22 12:30 12/05/22 13:32 12/05/22 12:46 Temperature Pulse Rate 59 L 57 L Pulse Rate [Left Dorsalis Pedis] 60 Respiratory Rate 16 17 Blood Pressure Pulse Oximetry 95 91 Oxygen Delivery Method Oxygen Flow Rate 12/05/22 12:46 12/05/22 13:00 12/05/22 13:00 Temperature Pulse Rate 58 L Pulse Rate [Left Dorsalis Pedis] Respiratory Rate 16 Blood Pressure 107/55 L 120/56 L Pulse Oximetry 92 Oxygen Delivery Method Oxygen Flow Rate 12/05/22 13:15 12/05/22 13:15 12/05/22 13:49 Temperature 97.9 F Pulse Rate 57 L Pulse Rate [Left Dorsalis Pedis] Respiratory Rate 18 Blood Pressure 113/57 L Pulse Oximetry 93 Oxygen Delivery Method Oxygen Flow Rate 12/05/22 13:30 12/05/22 13:30 12/05/22 14:00 Temperature Pulse Rate 60 55 L Pulse Rate [Left Dorsalis Pedis] Respiratory Rate 26 H 17 Blood Pressure 124/56 L Pulse Oximetry 95 95 Oxygen Delivery Method Oxygen Flow Rate 12/05/22 14:30 12/05/22 15:00 12/05/22 15:22 Temperature Pulse Rate 56 L 54 L 54 L Pulse Rate [Left Dorsalis Pedis] Respiratory Rate 24 24 27 H Blood Pressure Pulse Oximetry 94 94 93 Oxygen Delivery Method Oxygen Flow Rate 12/05/22 15:22 12/05/22 15:30 12/05/22 16:00 Temperature Pulse Rate 53 L 55 L Pulse Rate [Left Dorsalis Pedis] Respiratory Rate 28 H 22 Blood Pressure 102/51 L Pulse Oximetry 91 Oxygen Delivery Method Oxygen Flow Rate 12/05/22 16:06 12/05/22 16:06 12/05/22 16:15 Temperature Pulse Rate 57 L Pulse Rate [Left Dorsalis Pedis] Respiratory Rate 22 Blood Pressure 112/54 L 111/53 L Pulse Oximetry 91 Oxygen Delivery Method Oxygen Flow Rate 12/05/22 16:15 12/05/22 16:30 12/05/22 16:30 Temperature Pulse Rate 57 L 56 L Pulse Rate [Left Dorsalis Pedis] Respiratory Rate 22 22 Blood Pressure 105/54 L Pulse Oximetry 92 91 Oxygen Delivery Method Oxygen Flow Rate 12/05/22 16:45 12/05/22 16:45 12/05/22 17:00 Temperature Pulse Rate 55 L Pulse Rate [Left Dorsalis Pedis] Respiratory Rate 20 Blood Pressure 110/53 L 117/56 L Pulse Oximetry 93 Oxygen Delivery Method Oxygen Flow Rate 12/05/22 17:00 12/05/22 17:15 12/05/22 17:15 Temperature Pulse Rate 57 L 55 L Pulse Rate [Left Dorsalis Pedis] Respiratory Rate 22 21 Blood Pressure 109/55 L Pulse Oximetry 93 92 Oxygen Delivery Method Oxygen Flow Rate 12/05/22 17:30 12/05/22 17:30 12/05/22 18:10 Temperature 97.4 F L Pulse Rate 53 L 58 L Pulse Rate [Left Dorsalis Pedis] Respiratory Rate 21 18 Blood Pressure 111/55 L 116/48 L Pulse Oximetry 92 97 Oxygen Delivery Method Oxygen Flow Rate 0 MDM - Extremity (Nontraumatic) <NAKITA Bee - Last Filed: 12/05/22 16:28> Differential Diagnosis Differential diagnosis: Likely other (Wound abscess/infection); Unlikely cellulitis Lab Data Result diagrams: 12/05/22 12:15 12/05/22 12:15 Labs: Lab Results 12/05/22 12/05/22 12/05/22 Range/Units 12:15 12:15 12:15 WBC 8.9 (4.5-11.0) X10^3/uL RBC 3.83 L (4.0-5.2) X10^6/uL Hgb 12.0 (12.0-16.0) g/dL Hct 35.1 L (36-46) % MCV 91.6 (80-100) fL MCH 31.2 (26-34) PG MCHC 34.1 (30-36) % RDW 13.5 (11.6-14.8) % Plt Count 298 (150-400) X10^3/uL Neut % (Auto) 91.0 H (50-75) % Lymph % (Auto) 3.2 L (25-40) % [place] % (Auto) 5.5 (3-14) % Eos % (Auto) 0.0 L (2-4) % Baso % (Auto) 0.3 (0-2) % Neut # (Auto) 8100 H (7355-5276) /uL Lymph # (Auto) 300 L (8423-6019) /uL [place] # (Auto) 500 (0-900) /uL Eos # (Auto) 0 (0-450) /uL Baso # (Auto) 0 (0-100) /uL Sodium 133 L (137-145) mmol/L Potassium 2.6 L* (3.4-5.1) mmol/L Chloride 92 L (98-107) mmol/L Carbon Dioxide 32 (22-32) mmol/L BUN 47 H (7-17) mg/dL Creatinine 1.04 (0.52-1.04) mg/dL Estimated GFR 52 L (>60) mL/min BUN/Creatinine Ratio 45.2 H (6-22) Glucose 104 (80-110) mg/dL Lactate 1.4 (0.7-2.1) mmol/L Calcium 9.2 (8.4-10.2) mg/dL Magnesium (1.6-2.3) mg/dL Total Bilirubin 0.8 (0.2-1.3) mg/dL AST 64 H (14-36) IU/L ALT 31 (<35) IU/L Alkaline Phosphatase 115 (38-126) U/L Total Protein 7.1 (6.3-8.2) g/dL Albumin 3.6 (3.5-5.0) g/dL Globulin 3.5 (1.7-4.1) g/dL Albumin/Globulin Ratio 1.0 (1.0-2.8) Procalcitonin (<0.5) ng/mL 12/05/22 12/05/22 Range/Units 12:19 12:22 WBC (4.5-11.0) X10^3/uL RBC (4.0-5.2) X10^6/uL Hgb (12.0-16.0) g/dL Hct (36-46) % MCV (80-100) fL MCH (26-34) PG MCHC (30-36) % RDW (11.6-14.8) % Plt Count (150-400) X10^3/uL Neut % (Auto) (50-75) % Lymph % (Auto) (25-40) % [place] % (Auto) (3-14) % Eos % (Auto) (2-4) % Baso % (Auto) (0-2) % Neut # (Auto) (1382-6192) /uL Lymph # (Auto) (2859-9949) /uL [place] # (Auto) (0-900) /uL Eos # (Auto) (0-450) /uL Baso # (Auto) (0-100) /uL Sodium (137-145) mmol/L Potassium (3.4-5.1) mmol/L Chloride (98-107) mmol/L Carbon Dioxide (22-32) mmol/L BUN (7-17) mg/dL Creatinine (0.52-1.04) mg/dL Estimated GFR (>60) mL/min BUN/Creatinine Ratio (6-22) Glucose (80-110) mg/dL Lactate (0.7-2.1) mmol/L Calcium (8.4-10.2) mg/dL Magnesium 2.0 (1.6-2.3) mg/dL Total Bilirubin (0.2-1.3) mg/dL AST (14-36) IU/L ALT (<35) IU/L Alkaline Phosphatase (38-126) U/L Total Protein (6.3-8.2) g/dL Albumin (3.5-5.0) g/dL Globulin (1.7-4.1) g/dL Albumin/Globulin Ratio (1.0-2.8) Procalcitonin 0.86 H (<0.5) ng/mL Imaging Data CT Right LE: Radiologist's Impression: [place] [address] CT Scan Report Signed Patient: Mandy Wallace MR#: [id number] : 1935 Acct:[id number] Age/Sex: 87 / F Date of Service: 12/05/22 Loc: ED Accession Number: [id number] ?? Procedure: CT LE RT w con Ordering Provider: Obinna Graff PROCEDURE:? CT LE RT W CON ? INDICATIONS:? Suspected abscess s/p right hip replacement 6 weeks ago ? TECHNIQUE:? After the administration of intravenous contrast, 3 mm axial sections acquired of the right hip , with coronal and sagittal reformats. ? ? COMPARISON:? None. ? FINDINGS:? Image quality:? Excellent.? ? Bones:? Right hip arthroplasty components are present.? There are no unexpected fractures.? No periprosthetic lucency.? No suspicious bone erosion.? Incidental note made partially imaged right knee arthroplasty components ? Soft tissues:? There is a thin-walled, but peripherally enhancing fluid collection deep to the superficial fascia overlying the quadriceps muscle this measures approximately 4.2 cm in transverse diameter maximally, about 8.9 cm in length, and about 1.6 cm in maximal thickness.? Irregular, ill-defined intramuscular fluid and inflammation extends into the proximal tissues.? Along the most cranial aspect, there are a few foci of soft tissue gas.? Most of the inflammatory fat stranding extends lateral, away from the prosthesis.? A joint effusion cannot be entirely excluded, but there is no soft tissue gas seen adjacent to bone or prosthetic components.? Intrapelvic soft tissues are within normal limits.. ? IMPRESSION:? ? 1. There is a fluid collection deep to the superficial fascia with mild peripheral enhancement and a few scattered foci of gas suspicious for infection by gas-forming organism. ? 2. No evidence of osteomyelitis by CT. ? 3. No definite joint effusion or secondary signs to suggest joint involvement. ? 4. Discussed with Dr. Burton in the emergency room at 14:15 [place] standard time.? ? ? Dictated by: Sylvia Sosa M.D. on 12/05/2022 at 13:55 ? ? Approved by: Sylvia Sosa M.D. on 12/05/2022 at 14:17 ? MDM Narrative Medical decision making narrative: 87-year-old female presents to the walk-in clinic with worsening right hip pain and brownish discharge x3 days. Labs revealed increased procalcitonin at 0.86 and hypokalemia of 2.6. Patient was given 40 meq of potassium. Hip CT revealed fluid collection and scattered foci of gas suspicious for infection. Contacted Dr. Ramsey of Orthopedics, who recommended admission. Contacted Dr. Singh, hospitalist, who agreed to admission. Patient is aware and agreeable to admission. <Maddie Burton, DO - Last Filed: 12/05/22 18:40> Lab Data Labs: Lab Results 12/05/22 12/05/22 12/05/22 Range/Units 12:15 12:15 12:15 WBC 8.9 (4.5-11.0) X10^3/uL RBC 3.83 L (4.0-5.2) X10^6/uL Hgb 12.0 (12.0-16.0) g/dL Hct 35.1 L (36-46) % MCV 91.6 (80-100) fL MCH 31.2 (26-34) PG MCHC 34.1 (30-36) % RDW 13.5 (11.6-14.8) % Plt Count 298 (150-400) X10^3/uL Neut % (Auto) 91.0 H (50-75) % Lymph % (Auto) 3.2 L (25-40) % [place] % (Auto) 5.5 (3-14) % Eos % (Auto) 0.0 L (2-4) % Baso % (Auto) 0.3 (0-2) % Neut # (Auto) 8100 H (2094-2727) /uL Lymph # (Auto) 300 L (5086-7609) /uL [place] # (Auto) 500 (0-900) /uL Eos # (Auto) 0 (0-450) /uL Baso # (Auto) 0 (0-100) /uL Sodium 133 L (137-145) mmol/L Potassium 2.6 L* (3.4-5.1) mmol/L Chloride 92 L (98-107) mmol/L Carbon Dioxide 32 (22-32) mmol/L BUN 47 H (7-17) mg/dL Creatinine 1.04 (0.52-1.04) mg/dL Estimated GFR 52 L (>60) mL/min BUN/Creatinine Ratio 45.2 H (6-22) Glucose 104 (80-110) mg/dL Lactate 1.4 (0.7-2.1) mmol/L Calcium 9.2 (8.4-10.2) mg/dL Magnesium (1.6-2.3) mg/dL Total Bilirubin 0.8 (0.2-1.3) mg/dL AST 64 H (14-36) IU/L ALT 31 (<35) IU/L Alkaline Phosphatase 115 (38-126) U/L Total Protein 7.1 (6.3-8.2) g/dL Albumin 3.6 (3.5-5.0) g/dL Globulin 3.5 (1.7-4.1) g/dL Albumin/Globulin Ratio 1.0 (1.0-2.8) Procalcitonin (<0.5) ng/mL 12/05/22 12/05/22 Range/Units 12:19 12:22 WBC (4.5-11.0) X10^3/uL RBC (4.0-5.2) X10^6/uL Hgb (12.0-16.0) g/dL Hct (36-46) % MCV (80-100) fL MCH (26-34) PG MCHC (30-36) % RDW (11.6-14.8) % Plt Count (150-400) X10^3/uL Neut % (Auto) (50-75) % Lymph % (Auto) (25-40) % [place] % (Auto) (3-14) % Eos % (Auto) (2-4) % Baso % (Auto) (0-2) % Neut # (Auto) (2937-0942) /uL Lymph # (Auto) (4760-8846) /uL [place] # (Auto) (0-900) /uL Eos # (Auto) (0-450) /uL Baso # (Auto) (0-100) /uL Sodium (137-145) mmol/L Potassium (3.4-5.1) mmol/L Chloride (98-107) mmol/L Carbon Dioxide (22-32) mmol/L BUN (7-17) mg/dL Creatinine (0.52-1.04) mg/dL Estimated GFR (>60) mL/min BUN/Creatinine Ratio (6-22) Glucose (80-110) mg/dL Lactate (0.7-2.1) mmol/L Calcium (8.4-10.2) mg/dL Magnesium 2.0 (1.6-2.3) mg/dL Total Bilirubin (0.2-1.3) mg/dL AST (14-36) IU/L ALT (<35) IU/L Alkaline Phosphatase (38-126) U/L Total Protein (6.3-8.2) g/dL Albumin (3.5-5.0) g/dL Globulin (1.7-4.1) g/dL Albumin/Globulin Ratio (1.0-2.8) Procalcitonin 0.86 H (<0.5) ng/mL ECG Data Attestation EKG: I personally reviewed and interpreted this ECG as follows: Prior ECG tracings: not available for review Interpretation: Mank: Sinus bradycardia first-degree AV block, rate of 50 5p are 216 QRS of 156 and QTC 503. Patient does not have prior for comparison. Discharge Plan Departure Patient Disposition: Admitted As Inpatient Clinical Impression: Postoperative wound infection of right hip Admit Date/Time: 12/05/22 18:15 Admit Provider: Irina Egan <Maddie Burton, DO - Last Filed: 12/05/22 18:40> Cosign ED Attending Hetalature Attestation: I was immediately available in the department for consultation. Documentation has been reviewed. Case was discussed with myself, labs, imaging were all reviewed, patient recommended started on vancomycin 15 mg per kg as well as Zosyn 4.5 g to cover for MRSA as well as postoperative infection. CT report was called to myself by Radiology has 9 cm fluid collection small foci of air which is deeper than would be expected from having a recent swab is not just under the skin where there is dehiscence. They state does not look suspicious for neck fascia but does look suspicious for possible gas-forming organism. Patient has no evidence of osteomyelitis, and no definitive joint effusion. Patient did not have leukocytosis but does have a positive procalcitonin, potassium was low initial replacement was ordered orally, patient has bundle-branch block but no prior EKGs for comparison. Lactate is negative, cultures from site and blood were obtained. Patient does not have any anemia. Discussed the patient should receive fluids but hold off on 30 cc/kilos bolus. Case was discussed with orthopedic surgery and hospitalist and accepted for admission.
[2022-12-05 13:46] LABS: Add Manual Diff / Slide Review NO; Basophils Absolute Auto 0 /uL (0-100); Basophils Percent Auto 0.3 % (0-2); Eosinophils Absolute Auto 0 /uL (0-450); Hematocrit 35.1 % (36-46); Lymphocytes Absolute Auto 300 /uL (1100-4500); Lymphocytes Percent Auto 3.2 % (25-40); Mean Corpuscular HGB Conc 34.1 % (30-36); Mean Corpuscular Hemoglobin 31.2 PG (26-34); Mean Corpuscular Volume 91.6 fL (80-100); Monocytes Absolute Auto 500 /uL (0-900); Monocytes Percent Auto 5.5 % (3-14); Neutrophils Absolute Auto 8100 /uL (1500-7000); Platelet Count 298 X10^3/uL (150-400); Red Blood Cell Count 3.83 X10^6/uL (4.0-5.2); Red Cell Distribution Width 13.5 % (11.6-14.8); White Blood Cell Count 8.9 X10^3/uL (4.5-11.0)
[2022-12-05 13:52] LABS: Lactate (Lactic Acid) 1.4 mmol/L (0.7-2.1)
[2022-12-05 13:53] LABS: Alanine Aminotransferase 31 IU/L (<35); Albumin 3.6 g/dL (3.5-5.0); Alkaline Phosphatase 115 U/L (38-126); Aspartate Aminotransferase 64 IU/L (14-36); BUN Creatinine Ratio 45.2 (6-22); Bilirubin Total 0.8 mg/dL (0.2-1.3); Blood Urea Nitrogen 47 mg/dL (7-17); Calcium 9.2 mg/dL (8.4-10.2); Carbon Dioxide 32 mmol/L (22-32); Chloride 92 mmol/L (98-107); Estimated Glomerular Filt Rate 52 mL/min (>60); Globulin 3.5 g/dL (1.7-4.1); Glucose 104 mg/dL (80-110); HEMOLYSIS < 15 (0-50); Sodium 133 mmol/L (137-145); Total Protein 7.1 g/dL (6.3-8.2)
[2022-12-05 13:59] LABS: Potassium 2.6 mmol/L (3.4-5.1)
[2022-12-05 14:10] LABS: Procalcitonin 0.86 ng/mL (<0.5)
[2022-12-05] MEDS: POTASSIUM CHLORIDE 20 MEQ/15 ML UDC 40 MEQ PO (14:12)
[2022-12-05] MEDS: VANCOMYCIN 1,250 MG/250 ML PIGGYBACK 250 MG IV (14:16)
[2022-12-05] MEDS: PIPERACILLIN/TAZO 4.5 GM in SODIUM CHLORIDE 0.9% 100 ML IV (15:43)
[2022-12-05] MEDS: POTASSIUM CHLORIDE 20 MEQ TAB 40 MEQ PO (20:40)
[2022-12-05] MEDS: LACTATED RINGERS 1,000 ML 75 ML IV (20:41)
--- NOTE | 2022-12-05 21:41 | P.HP_ITS ---
History of Present Illness History of Present Illness Date Patient Seen: 12/05/22 Time Patient Seen: 21:41 Chief complaint: wound infection Narrative: Mandy Wallace is very pleasant 87-year-old female, former smoker with history of hypertension and right hip replacement surgery on 11/17/2022, presented to the emergency department with clear brown drainage from her right hip incision and increasing pain with movement and inability to weight bear due to pain.? Patient states that she saw her surgeon, Dr. Kerr, last week who used a scapel to open up the wound and was able to obtain a wound culture sample.? Patient states the following day the site had drained copious amounts of clear brown fluid.? Patient denies any swelling prior to the drainage.? Patient states that the pain is now so severe she can not stand, which she was able to do so after her hip surgery and prior to her appointment with her surgeon. She denies fever or chills, informed me that she had not mounted a white count, denies shortness of breath, chest pain, nausea or vomiting. LE CT reported There is a fluid collection deep to the superficial fascia with mild peripheral enhancement and a few scattered foci of gas suspicious for infection by gas-forming organism.She is afebrile, blood pressure 125/51 heart rate 56 respiratory rate 18 oxygen saturation of 96% on room air she weighs 86 kg with a BMI of 28.1. Currently she does not have white count she has a mild left shift though of 8100 sodium 133 potassium 2.6 for which she was repleted 40 mEq use in the ED and repleted again once she was on the floor, chloride 92 BUN 47 EGFR is 52 with a normal creatinine AST 64 and procalcitonin was 0.86, COVID- 19 is pending. Patient History Medical History Essential hypertension Gout HTN (hypertension) Osteoarthritis Surgical History History of right hip replacement History of total right knee replacement (2001) Hx of appendectomy Hx of tonsillectomy Family & Social History Family History Mother Old age Father Alcoholism Social History: household members none Prior Living Arrangements House Safety & Behavioral: Feels Safe in Current Yes Environment Been Physically Hurt or No Threatened By a Person Tobacco & Substance use: Smoking Status Former smoker alcohol intake current alcohol intake frequency a few times a month Substance Use Type does not use Meds Home Medications and Allergies Home Medications Medication Instructions Recorded Confirmed Type allopurinol 300 mg tablet 300 mg PO DAILY 11/10/22 12/05/22 History atenolol 50 mg tablet 50 mg PO BID 11/10/22 12/05/22 History hydrochlorothiazide 25 mg tablet 25 mg PO DAILY 11/10/22 12/05/22 History verapamil 120 mg tablet 120 mg PO BID 11/10/22 12/05/22 History acetaminophen 325 mg tablet 650 mg PO Q6HR #60 tabs 11/18/22 12/05/22 Rx aspirin 81 mg tablet,delayed 81 mg PO BID #60 tabs 11/18/22 12/05/22 Rx release ibuprofen 400 mg tablet 400 mg PO Q6HR #60 tabs 11/18/22 12/05/22 Rx oxycodone 5 mg tablet 5 mg PO Q3HR PRN Pain, Moderate 11/18/22 12/05/22 Rx (4-6) #40 tabs Allergies Allergy/AdvReac Type Severity Reaction Status Date / Time No Known Drug Allergies Allergy Verified 11/17/22 10:26 Review of Systems Review of Systems ROS: Yes All systems reviewed with the patient and are negative except as otherwise documented Exam Vital Signs (past 8 hours): - 12/05/22 13:49 12/05/22 14:00 12/05/22 14:30 Temperature 97.9 F Pulse Rate 55 L 56 L Respiratory Rate 17 24 Blood Pressure Pulse Oximetry 95 94 Oxygen Flow Rate 12/05/22 15:00 12/05/22 15:22 12/05/22 15:22 Temperature Pulse Rate 54 L 54 L Respiratory Rate 24 27 H Blood Pressure 102/51 L Pulse Oximetry 94 93 Oxygen Flow Rate 12/05/22 15:30 12/05/22 16:00 12/05/22 16:06 Temperature Pulse Rate 53 L 55 L 57 L Respiratory Rate 28 H 22 22 Blood Pressure Pulse Oximetry 91 91 Oxygen Flow Rate 12/05/22 16:06 12/05/22 16:15 12/05/22 16:15 Temperature Pulse Rate 57 L Respiratory Rate 22 Blood Pressure 112/54 L 111/53 L Pulse Oximetry 92 Oxygen Flow Rate 12/05/22 16:30 12/05/22 16:30 12/05/22 16:45 Temperature Pulse Rate 56 L 55 L Respiratory Rate 22 20 Blood Pressure 105/54 L Pulse Oximetry 91 93 Oxygen Flow Rate 12/05/22 16:45 12/05/22 17:00 12/05/22 17:00 Temperature Pulse Rate 57 L Respiratory Rate 22 Blood Pressure 110/53 L 117/56 L Pulse Oximetry 93 Oxygen Flow Rate 12/05/22 17:15 12/05/22 17:15 12/05/22 17:30 Temperature Pulse Rate 55 L Respiratory Rate 21 Blood Pressure 109/55 L 111/55 L Pulse Oximetry 92 Oxygen Flow Rate 12/05/22 17:30 12/05/22 18:10 12/05/22 20:35 Temperature 97.4 F L 96.9 F L Pulse Rate 53 L 58 L 56 L Respiratory Rate 21 18 18 Blood Pressure 116/48 L 125/51 L Pulse Oximetry 92 97 96 Oxygen Flow Rate 0 Oxygen Delivery Method Room Air Oxygen Flow Rate 0 Narrative Exam Narrative: Gen: Alert, oriented, well-developed 87 y.o. female, NAD HEENT: normocephalic, atraumatic, conjunctiva clear, sclera non-icteric, oral mucosa pink and moist Neck: supple, full ROM, no JVD, trachea is midline Resp: Lungs CTA, non-labored breathing CV: RRR, no murmur or rubs Abd: soft, non-tender, normoactive BTs Skin: fresh and healing surgical scar on right inguinal area extending to mid thigh, did not appreciate any drainage Neuro: Alert and oriented X 4 w/no focal deficits. Speech clear and coherent. Extremities: is normally ambulatory, currently non-weightbearing due to pain, negative Shanice?s sign Psyche: normal mood and affect. Objective Labs Result Diagrams: 12/05/22 12:15 12/05/22 23:50 Labs: Laboratory Results - last 24 hr 12/05/22 12/05/22 12/05/22 12:15 12:15 12:15 WBC 8.9 RBC 3.83 L Hgb 12.0 Hct 35.1 L MCV 91.6 MCH 31.2 MCHC 34.1 RDW 13.5 Plt Count 298 Neut % (Auto) 91.0 H Lymph % (Auto) 3.2 L [place] % (Auto) 5.5 Eos % (Auto) 0.0 L Baso % (Auto) 0.3 Neut # (Auto) 8100 H Lymph # (Auto) 300 L [place] # (Auto) 500 Eos # (Auto) 0 Baso # (Auto) 0 Sodium 133 L Potassium 2.6 L* Chloride 92 L Carbon Dioxide 32 BUN 47 H Creatinine 1.04 Estimated GFR 52 L BUN/Creatinine Ratio 45.2 H Glucose 104 Lactate 1.4 Calcium 9.2 Magnesium Total Bilirubin 0.8 AST 64 H ALT 31 Alkaline Phosphatase 115 Total Protein 7.1 Albumin 3.6 Globulin 3.5 Albumin/Globulin Ratio 1.0 Procalcitonin 12/05/22 12/05/22 12:19 12:22 WBC RBC Hgb Hct MCV MCH MCHC RDW Plt Count Neut % (Auto) Lymph % (Auto) [place] % (Auto) Eos % (Auto) Baso % (Auto) Neut # (Auto) Lymph # (Auto) [place] # (Auto) Eos # (Auto) Baso # (Auto) Sodium Potassium Chloride Carbon Dioxide BUN Creatinine Estimated GFR BUN/Creatinine Ratio Glucose Lactate Calcium Magnesium 2.0 Total Bilirubin AST ALT Alkaline Phosphatase Total Protein Albumin Globulin Albumin/Globulin Ratio Procalcitonin 0.86 H Assessment & Plan Assessment & Plan narrative: Mandy Wallace is admitted to the inpatient service for further workup and evaluation of a right hip surgical wound infection. Right hip surgical wound infection * Patient was recommended for receiving IV Zosyn and vancomycin which is continued from the ED initial administration * Dr. Kerr will see the patient in the morning consult appreciated * Consideration will be made to either draining of the abscess or washout Hypokalemia, acute, present on admission * Her presenting serum potassium was 2.6 * Patient was administered 40 mEq of oral potassium and repeated on the floor Essential hypertension, chronic * Continue atenolol and verapamil home doses Other independent historians: None Discussion of results, plan of care with independent HCP/other day hospitalist, ED provider Reviewed outside records: Prior surgical records VTE Prophylaxis: Wells risk score 0 X Bilateral SCDs Pharmacological VTE prophylaxis contraindicated in the setting of anticipated surgery. Patient is admitted to the inpatient service due to the severity of disease, r isks of further disease progression and this stay is expected to exceed 2 midnights. FEN: IV fluids: Saline lock, diet: Heart healthy, labs: CBC, C/BMP, liver enzymes, Mag, PT/INR Consultants Dr. Michelle Kerr, orthopedic surgery, care and involvement in the patient?s care is appreciated. Dispo: eventual d/c to home Code status: Full code as discussed with the patient who identifies her friend Miguel Renteria as her surrogate and POA. [X] I have utilized all available immediate resources to obtain, update, or review of the patient's current medications VTE Deep Vein Thrombosis/Pulmonary Embolism Present on Admission: No MIPS - Admit I confirm the patient?s Advance Care Plan is present, Code status is documented, Surrogate decision maker is in patient?s record: Yes MIPS - DC The patient has current or prior documentation of left ventricular ejection fraction (LVEF) less than 40%, or moderate or severely depressed left ventricular systolic function.: No COVID-19 COVID-19 status: Negative Result date/Date tested (Pos, Neg/Pending): 12/06/22
[2022-12-05] MEDS: PIPERACILLIN/TAZO 3.375 GM in SODIUM CHLORIDE 0.9% 100 ML IV (23:22)
[2022-12-06] VITALS (8 sets, daily range): BP systolic 108–139; BP diastolic 47–78; PULSE 60–64; RESP 18–22; TEMP 35.8–36.4; O2SAT 91–98
[2022-12-06 00:04] LABS: HEMOLYSIS < 15 (0-50); Potassium 3.1 mmol/L (3.4-5.1)
[2022-12-06 00:59] LABS: COVID19 -Nasal RAPID Negative (Negative)
[2022-12-06 06:38] LABS: Add Manual Diff / Slide Review NO; Basophils Absolute Auto 100 /uL (0-100); Basophils Percent Auto 0.7 % (0-2); Eosinophils Absolute Auto 0 /uL (0-450); Eosinophils Percent Auto 0.3 % (2-4); Hematocrit 33.1 % (36-46); Hemoglobin 11.5 g/dL (12.0-16.0); Lymphocytes Absolute Auto 600 /uL (1100-4500); Lymphocytes Percent Auto 8.1 % (25-40); Mean Corpuscular HGB Conc 34.6 % (30-36); Mean Corpuscular Hemoglobin 31.7 PG (26-34); Mean Corpuscular Volume 91.7 fL (80-100); Monocytes Absolute Auto 900 /uL (0-900); Monocytes Percent Auto 11.7 % (3-14); Neutrophils Absolute Auto 6300 /uL (1500-7000); Neutrophils Percent Auto 79.2 % (50-75); Platelet Count 268 X10^3/uL (150-400); Red Blood Cell Count 3.62 X10^6/uL (4.0-5.2); Red Cell Distribution Width 13.7 % (11.6-14.8); White Blood Cell Count 7.9 X10^3/uL (4.5-11.0)
[2022-12-06 06:39] LABS: INR 1.4 (0.9-1.3); Prothrombin Time 15.8 SECONDS (10.1-12.7)
[2022-12-06 06:44] LABS: Alanine Aminotransferase 35 IU/L (<35); Albumin 3.2 g/dL (3.5-5.0); Albumin Globulin Ratio 0.9 (1.0-2.8); BUN Creatinine Ratio 46.9 (6-22); Blood Urea Nitrogen 38 mg/dL (7-17); Calcium 8.9 mg/dL (8.4-10.2); Carbon Dioxide 28 mmol/L (22-32); Chloride 96 mmol/L (98-107); Estimated Glomerular Filt Rate > 60 mL/min (>60); Globulin 3.4 g/dL (1.7-4.1); Glucose 81 mg/dL (80-110); Sodium 132 mmol/L (137-145); Total Protein 6.6 g/dL (6.3-8.2)
[2022-12-06 06:49] LABS: Alkaline Phosphatase 101 U/L (38-126); HEMOLYSIS 64 (0-50)
[2022-12-06 06:50] LABS: Aspartate Aminotransferase 71 IU/L (14-36); Magnesium 1.9 mg/dL (1.6-2.3); Potassium 3.4 mmol/L (3.4-5.1)
[2022-12-06] MEDS: POTASSIUM CHLORIDE 20 MEQ TAB 40 MEQ PO (09:30)
[2022-12-06] MEDS: VERAPAMIL 120 MG TABLET PO (09:30)
[2022-12-06] MEDS: atenoloL 50 MG TABLET PO (09:30)
[2022-12-06] MEDS: OXYCODONE IR 5 MG TABLET PO ×2 (10:31→19:47)
[2022-12-06] MEDS: PIPERACILLIN/TAZO 3.375 GM in SODIUM CHLORIDE 0.9% 100 ML IV ×2 (10:39→18:32)
--- NOTE | 2022-12-06 10:42 | PM.CN ---
History of Present Illness Consult details Date Patient Seen: 12/06/22 Time Patient Seen: 10:42 Chief complaint: wound infection Narrative: Mandy Wallace is very pleasant 87-year-old female, former smoker with history of hypertension and right [facility]20[facility] office for drainage and wound cultures, but pain immobility and drainage became so severe the patient presented to the ED. Dr. Kerr's is planning to take the patient back to the OR for I&D tomorrow 12/07/2022 for postoperative infection. Patient is resting comfortably in bed denies right hip pain without movement, intolerable pain with movement. Patient was noted to have potassium of 2.6 on admit likely secondary to HCTZ and decreased fluid intake, patient notes that she does not take a potassium supplement at home. Supplementation provided, Potassium 3.4 today. WBC and platelet count is WNL, H&H 11.5/33.1, INR 1.4, sodium 132, Mag 1.9, Director Hedis 0.81, GFR>60. She denies chest pain, shortness breath, abdominal pain, nausea, or vomiting. Meds Home Medications and Allergies Home Medications Medication Instructions Recorded Confirmed Type allopurinol 300 mg tablet 300 mg PO DAILY 11/10/22 12/05/22 History atenolol 50 mg tablet 50 mg PO BID 11/10/22 12/05/22 History hydrochlorothiazide 25 mg tablet 25 mg PO DAILY 11/10/22 12/05/22 History verapamil 120 mg tablet 120 mg PO BID 11/10/22 12/05/22 History acetaminophen 325 mg tablet 650 mg PO Q6HR #60 tabs 11/18/22 12/05/22 Rx aspirin 81 mg tablet,delayed 81 mg PO BID #60 tabs 11/18/22 12/05/22 Rx release ibuprofen 400 mg tablet 400 mg PO Q6HR #60 tabs 11/18/22 12/05/22 Rx oxycodone 5 mg tablet 5 mg PO Q3HR PRN Pain, Moderate 11/18/22 12/05/22 Rx (4-6) #40 tabs Allergies Allergy/AdvReac Type Severity Reaction Status Date / Time No Known Drug Allergies Allergy Verified 11/17/22 10:26 Review of Systems Review of Systems Narrative: All 12 point systems reviewed with the patient and are negative except otherwise documented. Exam Vital Signs (past 8 hours): - 12/06/22 04:00 12/06/22 07:00 Temperature 97.6 F 96.5 F L Pulse Rate 60 61 Respiratory Rate 19 22 Blood Pressure 108/50 L 108/50 L Pulse Oximetry 96 98 Oxygen Flow Rate 0 0 Oxygen Delivery Method Room Air Oxygen Flow Rate 0 Narrative Exam Narrative: General: Patient is a well-developed, well-nourished female in no distress at this time. HEENT: Normocephalic, atraumatic, extraocular muscles intact, oral pharynx is clear and mucous membranes are moist. Neck is supple and symmetric, trachea is midline, no adenopathy, no thyroid enlargement, nontender, no masses palpated. Negative for JVD Chest: Normal AP diameter and contour without kyphoscoliosis, no nasal flaring, retractions, or tachypneic labored breathing. Lungs: Auscultation of all lung schumacher are clear without adventitious sounds, wheezes, rhonchi, or rales. Cardio: S1 & S2 with regular rate and rhythm without murmur, rubs, or gallops, no carotid bruit, no cardiac pulsations present. Abdomen: Soft nontender, negative for organomegaly, or masses. Bowel sounds are present in all 4 quadrants without guarding or rebound, no CVA tenderness. Musculoskeletal: Right hip noted mild drainage, from incision site, no progressing erythema or inflammation.no edema present. intact pedal pulses are normal. Skin: Warm dry and intact without rashes, ulcerations or petechiae. With the exception of right hip Neuro: Alert and orientated x3, sensation to touch intact, no gross deficits noted of cranial nerves. Psych: Patient has a well-kept appearance, appropriate affect, mental status attitude thought context and judgment are appropriate for age. Objective Labs Result Diagrams: 12/06/22 06:20 12/06/22 06:20 Labs: Laboratory Results - last 24 hr 12/05/22 12/05/22 12/05/22 12:15 12:15 12:15 WBC 8.9 RBC 3.83 L Hgb 12.0 Hct 35.1 L MCV 91.6 MCH 31.2 MCHC 34.1 RDW 13.5 Plt Count 298 Neut % (Auto) 91.0 H Lymph % (Auto) 3.2 L [place] % (Auto) 5.5 Eos % (Auto) 0.0 L Baso % (Auto) 0.3 Neut # (Auto) 8100 H Lymph # (Auto) 300 L [place] # (Auto) 500 Eos # (Auto) 0 Baso # (Auto) 0 PT INR Sodium 133 L Potassium 2.6 L* Chloride 92 L Carbon Dioxide 32 BUN 47 H Creatinine 1.04 Estimated GFR 52 L BUN/Creatinine Ratio 45.2 H Glucose 104 Lactate 1.4 Calcium 9.2 Magnesium Total Bilirubin 0.8 AST 64 H ALT 31 Alkaline Phosphatase 115 Total Protein 7.1 Albumin 3.6 Globulin 3.5 Albumin/Globulin Ratio 1.0 Procalcitonin SARS-CoV-2 (PCR) 12/05/22 12/05/22 12/05/22 12:19 12:22 23:50 WBC RBC Hgb Hct MCV MCH MCHC RDW Plt Count Neut % (Auto) Lymph % (Auto) [place] % (Auto) Eos % (Auto) Baso % (Auto) Neut # (Auto) Lymph # (Auto) [place] # (Auto) Eos # (Auto) Baso # (Auto) PT INR Sodium Potassium 3.1 L Chloride Carbon Dioxide BUN Creatinine Estimated GFR BUN/Creatinine Ratio Glucose Lactate Calcium Magnesium 2.0 Total Bilirubin AST ALT Alkaline Phosphatase Total Protein Albumin Globulin Albumin/Globulin Ratio Procalcitonin 0.86 H SARS-CoV-2 (PCR) 12/06/22 12/06/22 12/06/22 00:31 06:20 06:20 WBC 7.9 RBC 3.62 L Hgb 11.5 L Hct 33.1 L MCV 91.7 MCH 31.7 MCHC 34.6 RDW 13.7 Plt Count 268 Neut % (Auto) 79.2 H Lymph % (Auto) 8.1 L [place] % (Auto) 11.7 Eos % (Auto) 0.3 L Baso % (Auto) 0.7 Neut # (Auto) 6300 Lymph # (Auto) 600 L [place] # (Auto) 900 Eos # (Auto) 0 Baso # (Auto) 100 PT 15.8 H INR 1.4 H Sodium Potassium Chloride Carbon Dioxide BUN Creatinine Estimated GFR BUN/Creatinine Ratio Glucose Lactate Calcium Magnesium Total Bilirubin AST ALT Alkaline Phosphatase Total Protein Albumin Globulin Albumin/Globulin Ratio Procalcitonin SARS-CoV-2 (PCR) Negative 12/06/22 06:20 WBC RBC Hgb Hct MCV MCH MCHC RDW Plt Count Neut % (Auto) Lymph % (Auto) [place] % (Auto) Eos % (Auto) Baso % (Auto) Neut # (Auto) Lymph # (Auto) [place] # (Auto) Eos # (Auto) Baso # (Auto) PT INR Sodium 132 L Potassium 3.4 Chloride 96 L Carbon Dioxide 28 BUN 38 H Creatinine 0.81 Estimated GFR > 60 BUN/Creatinine Ratio 46.9 H Glucose 81 Lactate Calcium 8.9 Magnesium 1.9 Total Bilirubin 1.0 AST 71 H ALT 35 H Alkaline Phosphatase 101 Total Protein 6.6 Albumin 3.2 L Globulin 3.4 Albumin/Globulin Ratio 0.9 L Procalcitonin SARS-CoV-2 (PCR) [facility] Medical History Essential hypertension Gout HTN (hypertension) Osteoarthritis Surgical History History of right hip replacement History of total right knee replacement (2001) Hx of appendectomy Hx of tonsillectomy Family History Mother Old age Father Alcoholism Social History household members: none Tobacco & Substance Use Smoking Status: Former smoker alcohol intake: current Additional Social History 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 1.Wound infection, right, hip, s/p hip repair 11/17/2022, acute, present on admission IV Zosyn and vancomycin -pending bld & wound culture results Dr. Kerr-consulted likely taking the patient to the OR tomorrow 12/07/2022 NPO at midnight- except b/p meds BS Q6hrs while NPO Pain management, antiemetics. PT/OT evaluation postoperatively 2. Hypokalemia, acute, present on admission-resolved Admit potassium 2.6-administered 40 mEq of oral potassium AM today K+ 3.4- monitor electrolytes Hold HCTZ-consider stopping all together & initiate orthostatics q.4 hours while awake once cleared by Dr. Kerr postoperatively to assess for orthostatic hypotension 3. Hyponatremia, mild, acute, present on admission -on admit 133 sodium, a.m. repeat 132 -changed LR to NS at 84 cc/HR for mild hydration prior to surgery correction of hyponatremia 4. Essential hypertension, chronic, present on admission -patient's blood pressures have been running more hypotensive-node evaluation above recommended postoperatively Continue atenolol and verapamil home doses -Hold HCTZ 5.Overweight, mild , acute on chronic, present on admission -as evidence by BMI of 28 -dietary consult ordered regarding nutritional education and information for dietary, lifestyle, exercise, and weight changes. -the patient is at much higher risk for medical and surgical complications due to overweight as it relates to chronic illnesses:, and acute illness. The patient's overweight increases the difficulty and complexity of medical and/or surgical interventions, management and increases the chances of poor outcome such as morbidity and mortality as well as impaired wound healing. Code status: Full Surrogate decision maker: Silvio Time Spent With Patient Critical Care time: I spent a total of [] minutes of critical care time on this patient's care today; this time is exclusive of procedural time.
[2022-12-06] MEDS: VANCOMYCIN 750 MG/150 ML PIGGYBACK 150 MG IV ×2 (11:26→21:26)
[2022-12-06] MEDS: SODIUM CHLORIDE 0.9% 1,000 ML 84 ML IV (13:43)
--- NOTE | 2022-12-06 17:41 | CM.DANOTE ---
DCP Assessment: Patient is admitted for hip infection post NYLA earlier this month. CM met with patient at bedside and explained role. Patient A&Ox4 during CM visit. Patient currently lives in [place] alone in a single level home. Patient has friends who can help her at DC if needed. Patient is Independent with all ADLS and drives at her baseline. patient is planned for surgery 12/07/22 for an I&D of her wound. CM discussed DC planning and she wants home when medically stable but is open to SNF if needed at DC. CM showed patient IPAD medicare choice list. Patient chose [facility] in [place] as her first choice and [facility] as her second choice. CM called Rosanne with [facility] who said she will review patients information however they are not contracted with [facility] so she will need a single case agreement and auth. CM also called and LVM with [facility] to look and review this patient for admission if needed. She will need a PASRR and Insurance Auth if she needs SNF placement. I: [facility] and selfpay PCP: Jackie Castellanos Plan A: DC home with friends to help when medically stable Plan B: DC to SNF - both [facility] and [facility] reviewing- will need PASRR. CM team will follow up with patient after surgery and PT evaluation post I&D Jessica Kerr RNpyrotechnics press tender Discharge Planning/Care Management Advanced directive, confirm from FAMILY Start: 12/05/22 20:13 Freq: Q24H Status: Active Protocol: Document 12/05/22 20:13 AK (Rec: 12/05/22 20:13 AK [id number]) Advance Directive, confirm on record Time 20:13 Person contacted patient to asked friend Miguel Robert received No CM Discharge Assessment Start: 12/06/22 17:36 Freq: Status: Active Protocol: Document 12/06/22 17:36 HS (Rec: 12/06/22 17:41 HS [id number]) Discharge Planning Assessment Assigned Propulsion Systems Engineer Jessica Kerr RNpyrotechnics press tender DPOA/Assigned Designee Name Miguel Renteria Contact Information [phone] Advance Directives? Yes Advance Directives on File No History Provided By Patient,Medical Record Has Patient been admitted in last 30 Yes days? Prior Living Arrangements House Household Members none Type of transporation used prior to Drives own vehicle admit Independent with ADL's Yes Is patient alert and oriented? Yes Caregiver for Another No DME Already Rented / Owned FWW / Walker,Cane Patient/Family Preference Intermediate Facility,OP PT Therapy Comment Patient is wanting home but is open to SNF if needed at DC Barriers to Discharge No Discharge Plan Home Transportation Arrangement Friend VS facility transport Referrals Initiated None needed,Intermediate Additional Comment CM called [facility] patients [facility] for SNF and called [facility] which is her second choice both reviewing - patients would like to DC home but is open to SNF if needed at DC If patient plan is SNF: Has PASSR been No completed? Medicare Choice List Provided Yes Medicare choice list reviewed on patient electronic tablet with SNF/HH Preference 1st [facility] however does not have contract with [facility]- reviewing for single case agreement if needed 2nd - [facility] - who is reviewing Has Agency SNF been contacted Yes Whiteboard Updated in Patient Room with Yes name and ext. # of Propulsion Systems Engineer Review Status In Process Next Review Type Continued Stay Review
[2022-12-07] VITALS (15 sets, daily range): BP systolic 93–155; BP diastolic 45–71; PULSE 55–66; RESP 16–22; TEMP 36.1–36.9; O2SAT 94–98; BMI 28.0
--- NOTE | 2022-12-07 | DI.RAD.S_ITS ---
PROCEDURE: XR HIP RT 1V INDICATIONS: RIGHT HIP REVISION TECHNIQUE: 2 view(s) of the hip acquired. COMPARISON: [facility], [place], XR HIP W PEL IF DONE RT 2V, 11/17/2022, 17:06. FINDINGS: Intraoperative right hip arthroplasty revision. Hardware appears intact. There is good anatomic alignment. IMPRESSION: Intraoperative right hip arthroplasty. Dictated by: Sheri Mcmillan M.D. on 12/07/2022 at 19:08 Approved by: Sheri Mcmillan M.D. on 12/07/2022 at 19:08
--- NOTE | 2022-12-07 | DI.RAD.S_ITS ---
PROCEDURE: XR HIP W PEL IF DONE RT 2V INDICATIONS: RIGHT HIP REVISION TECHNIQUE: AP pelvis and lateral view of the right hip acquired. COMPARISON: [facility], [place], XR HIP W PEL IF DONE RT 2V, 11/17/2022, 17:06. FINDINGS: Bones: Patient is status post right hip arthroplasty, with hardware components in expected positions. The hip joint appears congruent. The visualized bony structures appear intact. Soft tissues: Overlying postoperative changes are noted. No suspicious soft tissue densities. IMPRESSION: Right hip arthroplasty postsurgical change. Dictated by: Sheri Mcmillan M.D. on 12/07/2022 at 19:41 Approved by: Sheri Mcmillan M.D. on 12/07/2022 at 19:42
[2022-12-07] MEDS: PIPERACILLIN/TAZO 3.375 GM in SODIUM CHLORIDE 0.9% 100 ML IV ×3 (02:49→17:04)
[2022-12-07] MEDS: SODIUM CHLORIDE 0.9% 1,000 ML 84 ML IV ×2 (03:30→15:08)
[2022-12-07 04:31] LABS: Acinetobacter baumannii Not Detected (Not Detect); Candida albicans Not Detected (Not Detect); Candida glabrata Not Detected (Not Detect); Candida krusei Not Detected (Not Detect); Candida parapsilosis Not Detected (Not Detect); Candida tropicalis Not Detected (Not Detect); E. coli Not Detected (Not Detect); Enterobacter cloacae complex Not Detected (Not Detect); Enterobacteriaceae species Detected (Not Detect); Enterococcus species Not Detected (Not Detect); Haemophilus influenzae Not Detected (Not Detect); KPC (carbapenem-resist gene) Not Detected (Not Detect); Listeria monocytogenes Not Detected (Not Detect); Neisseria meningitidis Not Detected (Not Detect); Proteus species Not Detected (Not Detect); Pseudomonas aeruginosa Not Detected (Not Detect); Serratia marcescens Not Detected (Not Detect); Staphylococcus species Not Detected (Not Detect); Streptococcus agalactiae (Gr B Not Detected (Not Detect); Streptococcus pneumonia Not Detected (Not Detect); Streptococcus pyogenes (Gr A) Not Detected (Not Detect); Streptococcus species Not Detected (Not Detect)
[2022-12-07 06:14] LABS: Add Manual Diff / Slide Review NO; Basophils Absolute Auto 0 /uL (0-100); Basophils Percent Auto 0.5 % (0-2); Eosinophils Absolute Auto 100 /uL (0-450); Eosinophils Percent Auto 1.5 % (2-4); Hematocrit 31.3 % (36-46); Hemoglobin 10.8 g/dL (12.0-16.0); Lymphocytes Absolute Auto 700 /uL (1100-4500); Lymphocytes Percent Auto 9.8 % (25-40); Mean Corpuscular HGB Conc 34.5 % (30-36); Mean Corpuscular Hemoglobin 31.5 PG (26-34); Mean Corpuscular Volume 91.2 fL (80-100); Monocytes Absolute Auto 1000 /uL (0-900); Monocytes Percent Auto 13.5 % (3-14); Neutrophils Absolute Auto 5300 /uL (1500-7000); Neutrophils Percent Auto 74.7 % (50-75); Platelet Count 260 X10^3/uL (150-400); Red Blood Cell Count 3.44 X10^6/uL (4.0-5.2); Red Cell Distribution Width 13.7 % (11.6-14.8)
[2022-12-07 06:21] LABS: INR 1.4 (0.9-1.3); Prothrombin Time 16.3 SECONDS (10.1-12.7)
[2022-12-07 06:28] LABS: Alanine Aminotransferase 37 IU/L (<35); Albumin 2.9 g/dL (3.5-5.0); Albumin Globulin Ratio 0.9 (1.0-2.8); Alkaline Phosphatase 111 U/L (38-126); Aspartate Aminotransferase 93 IU/L (14-36); BUN Creatinine Ratio 32.6 (6-22); Bilirubin Total 0.8 mg/dL (0.2-1.3); Blood Urea Nitrogen 28 mg/dL (7-17); Calcium 8.5 mg/dL (8.4-10.2); Carbon Dioxide 26 mmol/L (22-32); Chloride 101 mmol/L (98-107); Estimated Glomerular Filt Rate > 60 mL/min (>60); Globulin 3.2 g/dL (1.7-4.1); Glucose 97 mg/dL (80-110); HEMOLYSIS < 15 (0-50); Magnesium 1.8 mg/dL (1.6-2.3); Potassium 2.9 mmol/L (3.4-5.1); Sodium 137 mmol/L (137-145); Total Protein 6.1 g/dL (6.3-8.2)
[2022-12-07] MEDS: VERAPAMIL 120 MG TABLET PO ×2 (08:53→20:47)
[2022-12-07] MEDS: POTASSIUM CHLORIDE 20 MEQ/15 ML UDC 40 MEQ PO (08:53)
[2022-12-07] MEDS: atenoloL 50 MG TABLET PO ×2 (08:53→20:47)
[2022-12-07] MEDS: VANCOMYCIN 750 MG/150 ML PIGGYBACK 150 MG IV ×2 (08:53→21:17)
--- NOTE | 2022-12-07 11:26 | P.PN_ITS ---
Subjective Subjective Date Patient Seen: 12/07/22 Interval history: 87-year-old female with history of hypertension, gout, OA, right total hip 11/17/2022 admitted due to right hip infection. Patient is scheduled for OR I & D later today. She reports continued significant pain and drainage from the right hip. Exam Vital Signs (past 8 hours): - 12/07/22 07:52 12/07/22 08:00 Temperature 96.9 F L Pulse Rate 66 Respiratory Rate 22 Blood Pressure 122/56 L Pulse Oximetry 95 95 Oxygen Delivery Method Room Air Oxygen Flow Rate 0 0 Oxygen Delivery Method Room Air Oxygen Flow Rate 0 Narrative Exam Narrative: General: Alert, NAD Lungs: Clear Heart: Regular rhythm Extremities: There is a clean right hip dressing, no pretibial edema Neurological: Normal affect and speech Objective Labs 12/07/22 05:56 12/07/22 05:56 Labs: Laboratory Results - last 24 hr 12/07/22 12/07/22 12/07/22 05:56 05:56 05:56 WBC 7.0 RBC 3.44 L Hgb 10.8 L Hct 31.3 L MCV 91.2 MCH 31.5 MCHC 34.5 RDW 13.7 Plt Count 260 Neut % (Auto) 74.7 Lymph % (Auto) 9.8 L [place] % (Auto) 13.5 Eos % (Auto) 1.5 L Baso % (Auto) 0.5 Neut # (Auto) 5300 Lymph # (Auto) 700 L [place] # (Auto) 1000 H Eos # (Auto) 100 Baso # (Auto) 0 PT 16.3 H INR 1.4 H Sodium 137 Potassium 2.9 L Chloride 101 Carbon Dioxide 26 BUN 28 H Creatinine 0.86 Estimated GFR > 60 BUN/Creatinine Ratio 32.6 H Glucose 97 Calcium 8.5 Magnesium 1.8 Total Bilirubin 0.8 AST 93 H ALT 37 H Alkaline Phosphatase 111 Total Protein 6.1 L Albumin 2.9 L Globulin 3.2 Albumin/Globulin Ratio 0.9 L A. baumannii (PCR) Daja albicans (PCR) C. glabrata (PCR) C. krusei (PCR) C. parapsilosis (PCR) C. tropicalis (PCR) Enterobacteriac sp PCR E. cloacae complex PCR Enterococcus sp PCR E. coli (PCR) H. influenzae (PCR) Klebsiella oxytoca PCR Klebsiella pneumoniae List. monocytogenes PCR N. meningitidis (PCR) Proteus species (PCR) Serratia marcescens PCR Staphylococcus sp PCR Staph aureus (PCR) mecA-Methicil Res Gene Streptococcus sp PCR Group A Strep (PCR) Strep agalactiae (PCR) Strep pneumoniae (PCR) P. aeruginosa (PCR) Omaira/B-Vanco Res Genes KPC-Carbap Res Gene PCR 12/07/22 12:15 WBC RBC Hgb Hct MCV MCH MCHC RDW Plt Count Neut % (Auto) Lymph % (Auto) [place] % (Auto) Eos % (Auto) Baso % (Auto) Neut # (Auto) Lymph # (Auto) [place] # (Auto) Eos # (Auto) Baso # (Auto) PT INR Sodium Potassium Chloride Carbon Dioxide BUN Creatinine Estimated GFR BUN/Creatinine Ratio Glucose Calcium Magnesium Total Bilirubin AST ALT Alkaline Phosphatase Total Protein Albumin Globulin Albumin/Globulin Ratio A. baumannii (PCR) Not detected Daja albicans (PCR) Not detected C. glabrata (PCR) Not detected C. krusei (PCR) Not detected C. parapsilosis (PCR) Not detected C. tropicalis (PCR) Not detected Enterobacteriac sp PCR Detected H E. cloacae complex PCR Not detected Enterococcus sp PCR Not detected E. coli (PCR) Not detected H. influenzae (PCR) Not detected Klebsiella oxytoca PCR Not detected Klebsiella pneumoniae Not detected List. monocytogenes PCR Not detected N. meningitidis (PCR) Not detected Proteus species (PCR) Not detected Serratia marcescens PCR Not detected Staphylococcus sp PCR Not detected Staph aureus (PCR) Not detected mecA-Methicil Res Gene Not Reportable Streptococcus sp PCR Not detected Group A Strep (PCR) Not detected Strep agalactiae (PCR) Not detected Strep pneumoniae (PCR) Not detected P. 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 Right hip surgical wound infection -wound cultures growing Citrobacter -scheduled right hip I & D and washout -continue Zosyn and vancomycin for now -may need ID input on antibiotic management -continue IV Dilaudid, oxycodone as needed 2. Hypertension, chronic -continue atenolol and verapamil -hold HCTZ secondary to dec K 3. Hypokalemia, present on admission -likely secondary to her thiazide diuretic -received oral potassium replacement 4. History of gout -continue allopurinol Time Spent With Patient Critical Care time: I spent a total of [] minutes of critical care time on this patient's care today; this time is exclusive of procedural time.
--- NOTE | 2022-12-07 13:43 | DIET.CONS ---
Dietary Consultation Note Admission Date: 12/05/2022 18:15 Assessment: 87y F admitted for surgical infection after hip replacement referred to nutrition for BMI 28. Pt currently NPO awaiting surgery washout on infected hip. Pt excited to be able to potentially eat a sandwich tonight after surgery. Kitchen likely to be closed, RD will put small meal box in patient fridge with pt name tag on it, pt requests turkey sandwich. Pt not currently appropriate for weight loss counselling r/t advanced age and increased nutrient needs for healing secondary to repeat surgeries and post-op infection. Ht: 175.26 cm Wt: 86 kg BMI: 28.1 Last BM: 12/07/22 (12/07/22 13:00) MNA: 12 Senthil Score: 20 Diet: 12/07/22 13:33 NPO Diet Diet Modifications: NPO Type: NPO NOW for Procedure Labs: RBC 3.44 X10^6/uL (4.0-5.2) L 12/07/22 05:56 Hgb 10.8 g/dL (12.0-16.0) L 12/07/22 05:56 Hct 31.3 % (36-46) L 12/07/22 05:56 Creatinine 0.86 mg/dL (0.52-1.04) 12/07/22 05:56 Lactate 1.4 mmol/L (0.7-2.1) 12/05/22 12:15 Nutrition Diagnosis: increased nutrient needs for healing (Vit A, Vit C, zinc, protein) r/t post-operative infection aeb pt s/p hip replacement readmitted with infection. Interventions: 1. Educated pt on nutrients for healing including food sources of each on handout. Pt happy to have information and will be sure to eat foods from all categories during healing. Electronically Signed by: Mary Mishra 12/07/22 13:43 Clinical Dietitian [address] [id number]
[2022-12-07] MEDS: POTASSIUM CHLORIDE 20 MEQ TAB PO (14:08)
--- NOTE | 2022-12-07 15:53 | PM.HP.1 ---
History of Present Illness History of Present Illness Date Patient Seen: 12/07/22 Time Patient Seen: 15:30 Chief complaint: wound infection Narrative: Mandy notes that after I saw her last Tuesday she had some slight increased drainage and pain it progressively worsened and then it was painful enough that she called 911 and came to the hospital on Tuesday. She did have some increased drainage. An increased right hip pain. She was really not having any pain when I saw her in clinic but she did have a small opening in her wound. She has not had fevers or chills. She has a history of a right total hip arthroplasty anterior approach on 11/17/2022. She notes she did well but she was having a wound issue. Patient History Medical History Essential hypertension Gout HTN (hypertension) Osteoarthritis Surgical History History of right hip replacement History of total right knee replacement (2001) Hx of appendectomy Hx of tonsillectomy Family & Social History Family History Mother Old age Father Alcoholism Social History: household members none Prior Living Arrangements House Safety & Behavioral: Feels Safe in Current Yes Environment Been Physically Hurt or No Threatened By a Person Tobacco & Substance use: Smoking Status Former smoker alcohol intake current alcohol intake frequency a few times a month Substance Use Type does not use Meds Home Medications and Allergies Home Medications Medication Instructions Recorded Confirmed Type allopurinol 300 mg tablet 300 mg PO DAILY 11/10/22 12/05/22 History atenolol 50 mg tablet 50 mg PO BID 11/10/22 12/05/22 History hydrochlorothiazide 25 mg tablet 25 mg PO DAILY 11/10/22 12/05/22 History verapamil 120 mg tablet 120 mg PO BID 11/10/22 12/05/22 History acetaminophen 325 mg tablet 650 mg PO Q6HR #60 tabs 11/18/22 12/05/22 Rx aspirin 81 mg tablet,delayed 81 mg PO BID #60 tabs 11/18/22 12/05/22 Rx release ibuprofen 400 mg tablet 400 mg PO Q6HR #60 tabs 11/18/22 12/05/22 Rx oxycodone 5 mg tablet 5 mg PO Q3HR PRN Pain, Moderate 11/18/22 12/05/22 Rx (4-6) #40 tabs Allergies Allergy/AdvReac Type Severity Reaction Status Date / Time No Known Drug Allergies Allergy Verified 11/17/22 10:26 Review of Systems Review of Systems Narrative: Denies fevers or chills but notes that she did not feel it all well at all when she was home on Tuesday. She is a little better since she is been in the hospital but she is still having ongoing right hip pain. Exam Vital Signs (past 8 hours): - 12/07/22 08:00 12/07/22 11:56 12/07/22 14:00 Temperature 97.3 F L Pulse Rate 56 L Respiratory Rate 20 Blood Pressure 123/57 L Pulse Oximetry 95 95 95 Oxygen Delivery Method Room Air Room Air Oxygen Flow Rate 0 0 0 Oxygen Delivery Method Room Air Oxygen Flow Rate 0 Narrative Exam Narrative: HEENT is benign she is alert she is oriented, she is conversant and pleasant, does not appear to be in distress, lungs are clear, cor slightly irregular rhythm, abdomen benign, examination of the right hip shows about a 2 cm x 1 cm opening of the proximal wound there is slight erythema and there is a small amount of drainage, there is also some pain along the anterior aspect of the thigh, mild pain with range of motion, leg lengths look symmetrical there is minimal pain with range of motion of her hip, calf is soft distally, she is neurologically intact distally Objective Labs 12/07/22 05:56 12/07/22 05:56 Labs: Laboratory Results - last 24 hr 12/07/22 12/07/22 12/07/22 05:56 05:56 05:56 WBC 7.0 RBC 3.44 L Hgb 10.8 L Hct 31.3 L MCV 91.2 MCH 31.5 MCHC 34.5 RDW 13.7 Plt Count 260 Neut % (Auto) 74.7 Lymph % (Auto) 9.8 L [place] % (Auto) 13.5 Eos % (Auto) 1.5 L Baso % (Auto) 0.5 Neut # (Auto) 5300 Lymph # (Auto) 700 L [place] # (Auto) 1000 H Eos # (Auto) 100 Baso # (Auto) 0 PT 16.3 H INR 1.4 H Sodium 137 Potassium 2.9 L Chloride 101 Carbon Dioxide 26 BUN 28 H Creatinine 0.86 Estimated GFR > 60 BUN/Creatinine Ratio 32.6 H Glucose 97 Calcium 8.5 Magnesium 1.8 Total Bilirubin 0.8 AST 93 H ALT 37 H Alkaline Phosphatase 111 Total Protein 6.1 L Albumin 2.9 L Globulin 3.2 Albumin/Globulin Ratio 0.9 L A. baumannii (PCR) Daja albicans (PCR) C. glabrata (PCR) C. krusei (PCR) C. parapsilosis (PCR) C. tropicalis (PCR) Enterobacteriac sp PCR E. cloacae complex PCR Enterococcus sp PCR E. coli (PCR) H. influenzae (PCR) Klebsiella oxytoca PCR Klebsiella pneumoniae List. monocytogenes PCR N. meningitidis (PCR) Proteus species (PCR) Serratia marcescens PCR Staphylococcus sp PCR Staph aureus (PCR) mecA-Methicil Res Gene Streptococcus sp PCR Group A Strep (PCR) Strep agalactiae (PCR) Strep pneumoniae (PCR) P. aeruginosa (PCR) Omaira/B-Vanco Res Genes KPC-Carbap Res Gene PCR 12/07/22 12:15 WBC RBC Hgb Hct MCV MCH MCHC RDW Plt Count Neut % (Auto) Lymph % (Auto) [place] % (Auto) Eos % (Auto) Baso % (Auto) Neut # (Auto) Lymph # (Auto) [place] # (Auto) Eos # (Auto) Baso # (Auto) PT INR Sodium Potassium Chloride Carbon Dioxide BUN Creatinine Estimated GFR BUN/Creatinine Ratio Glucose Calcium Magnesium Total Bilirubin AST ALT Alkaline Phosphatase Total Protein Albumin Globulin Albumin/Globulin Ratio A. baumannii (PCR) Not detected Daja albicans (PCR) Not detected C. glabrata (PCR) Not detected C. krusei (PCR) Not detected C. parapsilosis (PCR) Not detected C. tropicalis (PCR) Not detected Enterobacteriac sp PCR Detected H E. cloacae complex PCR Not detected Enterococcus sp PCR Not detected E. coli (PCR) Not detected H. influenzae (PCR) Not detected Klebsiella oxytoca PCR Not detected Klebsiella pneumoniae Not detected List. monocytogenes PCR Not detected N. meningitidis (PCR) Not detected Proteus species (PCR) Not detected Serratia marcescens PCR Not detected Staphylococcus sp PCR Not detected Staph aureus (PCR) Not detected mecA-Methicil Res Gene Not Reportable Streptococcus sp PCR Not detected Group A Strep (PCR) Not detected Strep agalactiae (PCR) Not detected Strep pneumoniae (PCR) Not detected P. 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 She did have 1 positive blood culture. I have recommended irrigation and debridement and probable polyethylene exchange of her right hip. Serious nature of the procedure options risks benefits and complications were discussed in detail. She has had only short-term symptoms and I have recommended irrigation debridement polyethylene exchange do not think that she necessarily needs two-stage exchange arthroplasty this point. Hopefully we can get her settled down with IV antibiotics and a polyethylene exchange. She likely will need IV antibiotics for 3-6 weeks postoperatively. She lives by herself at home and will likely need a stay in rehab but may be transitioned to home IV antibiotics at some point. Time Spent With Patient Critical Care time: I spent a total of [] minutes of critical care time on this patient's care today; this time is exclusive of procedural time.
--- NOTE | 2022-12-07 15:54 | PC.NURSE ---
Pt went to surgery @ 1515 via bed with chart
[2022-12-07] MEDS: CELECOXIB 200 MG CAPSULE PO (16:01)
[2022-12-07] MEDS: TRANEXAMIC ACID 1,000 MG VIAL 2000 MG INJ ×2 (16:40→18:10)
[2022-12-07] MEDS: VANCOMYCIN 1,000 MG VIAL 1000 MG INTRA-ARTI (18:00)
[2022-12-07] MEDS: BUPIVACAINE LIPOSOME 266 MG/20 ML VIAL INJ (18:00)
--- NOTE | 2022-12-07 18:12 | SUR.OPER ---
Patient supine on padded Oxbow table, one arm on padded arm board at <90, other arm padded and secured with tape across patient's chest, both legs secured in padded traction boots and positioned per surgeon, padded post at patient's groin, pressure points checked and padded.
[2022-12-07] MEDS: BUPIVACAINE 0.5% W/ EPI (PF) 30 ML VIAL INJ (18:37)
--- NOTE | 2022-12-07 19:04 | PM.OP.1 ---
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 She is brought to the operating room for irrigation and debridement and revision as necessary. The risks, benefits and alternatives to surgery were discussed with the patient prior to proceeding. Risks discussed included, but were not limited to, failure to relieve pain, leg length discrepancy, dislocation, stiffness, infection, nerve damage, deep venous thrombosis, pulmonary embolism, stroke, coma, heart attack, permanent paralysis and , as well as the potential need for eventual revision of the prosthetic. Surgeon: Michelle Kerr Aerospace Engineer: Pao Penny Anesthesia Type: General and Spinal Operative Notes Findings: Evidence of a deep infection which tracked down to the components, no evidence of component loosening, Closure Type: primary Specimen(s): other (Fluid culture, tissue culture, PCR) Prosthetic devices, grafts, tissues, transplants, or devices: Kerr and nephew size 52 poly, 36 x -3 Oxinium femoral head Applied: drain(s) Estimated Blood Loss (mL): 100 Blood products transfused: none Procedure in detail: The patient was brought to the operating room. Patient was carefully positioned in the supine position. Time-out was performed and antibiotics were given. Anesthesia was induced. She was positioned in the on the table in order to allow hyperextension of the hip. The right lower extremity was prepped and draped in a standard sterile fashion. An anterior right hip incision was made 1 fingerbreadth lateral to the anterior superior iliac spine and extended distally towards the greater trochanter. Her previous skin incision was used and an area of wound dehiscence proximally was ellipsed out. Dissection was carried out through skin and subcutaneous tissues. Superficial hemostasis was achieved. The fascia over the tensor fascia edgar was opened. There was cloudy fluid in the wound which tracked some distally as well as some down directly into the capsule and prosthesis. Fluid was sent for culture and sensitivity. Tensor fascia edgar was retracted laterally. A gelpi retractor was placed. Dissection was carried out down along the neck. The joint was meticulously debrided. I sent deep synovial fluid for PCR and cultures. There was significant synovitis in the joint. A synovectomy was performed. The hip was dislocated. I removed the head. I scrubbed the femoral prosthesis mechanically and used multiple L of pulse lavage. The polyethylene in the acetabulum was removed. I meticulously scrubbed the acetabular component and used pulse lavage. There was not substantial necrotic tissue but anything that looked inflamed or to contaminated was carefully excisionally debrided. Once the wound had been adequately cleansed and debrided I further used a curette to scrub around the bone prosthetic interface of both the acetabulum and the femoral component. There was no evidence of loosening. Vancomycin powder was placed in the wound and in the holes along the acetabulum. A new Final neutral poly was placed without difficulty. Marcaine and Exparel were injected. A new femoral head was placed without difficulty. Repeat trial reduction and x-ray showed acceptable overall position, length, and no evidence of the femoral fracture. Wound was meticulously irrigated with normal saline. Additional Exparel and Marcaine were injected. The capsule was closed with interrupted PDS sutures. The fascia of the tensor was closed with interrupted and running PDS. A Hemovac drain was placed. Any tensor fascia edgar muscle that appeared to be contused or injured which was a minimal amount was carefully resected. Capsule around the tensor was injected with Exparel and Marcaine. The skin was closed with barbed stitches for the subcutaneous tissue and skin misty. The wound was dressed sterilely. Brief Betadine soak was also used and was meticulously irrigated with normal saline. Patient was transferred to recovery room in satisfactory condition. Complications: none Post-operative Condition: stable Disposition: Acute Care Plan for aftercare: The patient will be maintained on a standard total hip replacement protocol with weight bearing as tolerated and anterior hip precautions. The patient will receive Aspirin and sequential compression devices for DVT prophylaxis. Leave the Hemovac drain in for 48 hours. Check culture results. Continue IV antibiotics for 6 weeks postoperatively.
--- NOTE | 2022-12-07 19:20 | SUR.PHASEI ---
1920: Pt awake, alert, oriented to self. Wiggles toes, but confused and cannot determine dermatome levels. VSS, pulses/color excellent. Will handoff care to ARNOLD Paul.
--- NOTE | 2022-12-07 19:40 | SUR.PHASEI ---
Blood sugar 147; patient able to answer questions more clearly. VSS. Following all commands
[2022-12-07] MEDS: LACTATED RINGERS 1,000 ML 125 ML IV (20:09)
[2022-12-07] MEDS: DOCUSATE 100 MG CAPSULE PO (20:47)
[2022-12-07] MEDS: ASPIRIN EC 81 MG TABLET PO (20:47)
[2022-12-07 21:03] LABS: Vancomycin Trough 12.9 ug/mL (10-20)
[2022-12-08] VITALS (10 sets, daily range): BP systolic 104–121; BP diastolic 41–56; PULSE 51–97; RESP 17–20; TEMP 35.4–36.4; O2SAT 94–99
[2022-12-08] MEDS: ACETAMINOPHEN 325 MG TABLET 650 MG PO ×4 (00:07→17:45)
[2022-12-08] MEDS: IBUPROFEN 400 MG TABLET PO ×4 (00:07→17:45)
--- NOTE | 2022-12-08 01:30 | PC.NURSE ---
Patient returned from PACU at 2003. Is oriented except to day of month, day of week and year. Did need some earlier reorientation as to time of day. Breath sounds CTA with RA sat of 98%. HRR but bradycardic with rate in 50's. BP low with systolic readings ranging in 90's to low 100's. Denies nausea. BT present but has not yet passed flatus. FACILITIES LOCATOR reported patient had been incontinent in OR and had brief changed and has not yet voided since return from surgery. Is assisted to reposition q2h. OPAL dressing to anterior hip is functioning and CDI; hemovac is intact and compressed. CMS intact to light touch but is unable to lift leg off bed. Denies pain. Bilateral calf SCD's applied upon return from surgery. Fall risk score is high and bed alarm is activated.
[2022-12-08] MEDS: PIPERACILLIN/TAZO 3.375 GM in SODIUM CHLORIDE 0.9% 100 ML IV ×2 (02:13→13:08)
[2022-12-08] MEDS: SODIUM CHLORIDE 0.9% FLUSH 10 ML IV ×3 (02:13→20:20)
[2022-12-08] MEDS: LACTATED RINGERS 1,000 ML 125 ML IV (03:51)
[2022-12-08 06:30] LABS: Add Manual Diff / Slide Review NO; Basophils Absolute Auto 0 /uL (0-100); Basophils Percent Auto 0.5 % (0-2); Eosinophils Absolute Auto 200 /uL (0-450); Eosinophils Percent Auto 2.5 % (2-4); Hematocrit 27.1 % (36-46); Hemoglobin 9.2 g/dL (12.0-16.0); Lymphocytes Absolute Auto 800 /uL (1100-4500); Lymphocytes Percent Auto 10.4 % (25-40); Mean Corpuscular HGB Conc 33.9 % (30-36); Mean Corpuscular Hemoglobin 31.3 PG (26-34); Mean Corpuscular Volume 92.4 fL (80-100); Monocytes Absolute Auto 900 /uL (0-900); Monocytes Percent Auto 10.7 % (3-14); Neutrophils Absolute Auto 6100 /uL (1500-7000); Neutrophils Percent Auto 75.9 % (50-75); Platelet Count 218 X10^3/uL (150-400); Red Blood Cell Count 2.94 X10^6/uL (4.0-5.2); Red Cell Distribution Width 13.9 % (11.6-14.8)
[2022-12-08 06:40] LABS: Alanine Aminotransferase 27 IU/L (<35); Albumin 2.3 g/dL (3.5-5.0); Albumin Globulin Ratio 0.8 (1.0-2.8); Alkaline Phosphatase 89 U/L (38-126); Aspartate Aminotransferase 48 IU/L (14-36); BUN Creatinine Ratio 28.2 (6-22); Bilirubin Total 0.8 mg/dL (0.2-1.3); Blood Urea Nitrogen 22 mg/dL (7-17); Calcium 8.1 mg/dL (8.4-10.2); Carbon Dioxide 25 mmol/L (22-32); Chloride 105 mmol/L (98-107); Estimated Glomerular Filt Rate > 60 mL/min (>60); Globulin 2.8 g/dL (1.7-4.1); Glucose 93 mg/dL (80-110); HEMOLYSIS < 15 (0-50); Magnesium 1.8 mg/dL (1.6-2.3); Potassium 3.3 mmol/L (3.4-5.1); Sodium 138 mmol/L (137-145); Total Protein 5.1 g/dL (6.3-8.2)
--- NOTE | 2022-12-08 07:21 | P.PN_ITS ---
Subjective Subjective Date Patient Seen: 12/08/22 Time Patient Seen: 07:21 Interval history: Patient has minimal right hip pain. Denies fever or chills. No nausea or vomiting. Exam Vital Signs (past 8 hours): - 12/08/22 00:25 12/08/22 02:49 12/08/22 05:21 Temperature 96.5 F L 97.5 F L Pulse Rate 55 L 54 L Respiratory Rate 18 18 Blood Pressure 104/50 L 113/45 L Pulse Oximetry 95 95 Oxygen Delivery Method Room Air Oxygen Flow Rate 0 Oxygen Delivery Method Room Air Oxygen Flow Rate 0 Narrative Exam Narrative: Pleasant 87-year-old female resting comfortably in bed in no apparent distress. Drain is in place. Dressing is clean dry and intact. Motor functions intact bilateral lower extremities. Sensation grossly intact to light touch bilateral lower extremities. Const General: cooperative and comfortable Nutritional Appearance: average body habitus Orientation: alert Resp Effort & Inspection: normal respiratory effort and able to speak in complete sentences Objective Labs 12/08/22 05:57 12/08/22 05:57 Labs: Laboratory Results - last 24 hr 12/07/22 12/08/22 12/08/22 20:30 05:57 05:57 WBC 8.0 RBC 2.94 L Hgb 9.2 L Hct 27.1 L MCV 92.4 MCH 31.3 MCHC 33.9 RDW 13.9 Plt Count 218 Neut % (Auto) 75.9 H Lymph % (Auto) 10.4 L [place] % (Auto) 10.7 Eos % (Auto) 2.5 Baso % (Auto) 0.5 Neut # (Auto) 6100 Lymph # (Auto) 800 L [place] # (Auto) 900 Eos # (Auto) 200 Baso # (Auto) 0 Sodium 138 Potassium 3.3 L Chloride 105 Carbon Dioxide 25 BUN 22 H Creatinine 0.78 Estimated GFR > 60 BUN/Creatinine Ratio 28.2 H Glucose 93 Calcium 8.1 L Magnesium 1.8 Total Bilirubin 0.8 AST 48 H ALT 27 Alkaline Phosphatase 89 Total Protein 5.1 L Albumin 2.3 L Globulin 2.8 Albumin/Globulin Ratio 0.8 L Vancomycin Trough 12.9 SEKOU: 12/07/22-1718 STATUS: RES REQ #: [id number] SPDESC: RECD: 12/07/22-[address]: Michelle Kerr MD SOURCE: Hip Rt ENTR: 12/07/[address]: Irina Egan MD, Brooke ARNP FAX TO: ORDERED: WOUND Cx and GS COMMENTS: Comment deep tissue right hip culture sensitivity and gram Procedure Result Verified Site Gram Stain Final 12/07/222025 No Organism Seen No organisms seen White blood cells Moderate poly WBCs Aerobic Culture for wounds Pending Anaerobic Culture Pending SEKOU: 12/05/22 STATUS: COMP REQ #: [id number] SPDESC: RECD: 12/05/[address] [facility] [address]: Maddie Burton D.O. 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 RX --------- --- * Amikacin <=2 S * Amoxicillin/Clavulanate <=2 S * Aztreonam <=1 S * Cefazolin <=4 S * Cefepime <=1 S Cefalotin 4 S * Cefotaxime <=1 S * Cefotetan <=4 S * Cefpodoxime <=0.25 S * Ceftazidime <=1 S * Ceftizoxime <=1 S * Ceftriaxone <=1 S * Cefuroxime 8 S * Ciprofloxacin <=0.25 S * Doripenem <=0.12 S * Ertapenem <=0.5 S * Gentamicin <=1 S * Imipenem <=0.25 S * Levofloxacin <=0.12 S * Meropenem <=0.25 S * Moxifloxacin <=0.25 S * Nalidixic Acid <=2 S * Norfloxacin <=0.5 S * Piperacillin R * Tetracycline <=1 S * Ticarcillin >=128 R * Tigecycline <=0.5 S * Tobramycin <=1 S * Trimethoprim/Sulfamethoxazole <=20 S * Piperacillin/Tazobactam <=4 S Anaerobic Culture Final 12/06/22- 1031 Test not performed [facility] Medical History Essential hypertension Gout HTN (hypertension) Osteoarthritis Surgical History History of right hip replacement History of total right knee replacement (2001) Hx of appendectomy Hx of tonsillectomy Family History Mother Old age Father Alcoholism Social History household members: none Smoking Status: Former smoker alcohol intake: current 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 Assessment & Plan Post-op Postoperative Procedures: Procedures Operation Date: 12/07/22 17:15 Actual Procedure Side Surgeon p excisional irrication and debridement with revision one component right hip Right Michelle Kerr MD Postoperative day: 1 Postoperative status narrative: Stable status post Irrigation and excisional debridement right total hip arthroplasty and revision of 1 component polyethylene exchange December 07, 2022 Right total hip arthroplasty, anterior approach November 17, 2022 Postoperative plan: routine post-op care Postoperative plan narrative: The patient will be maintained on a standard total hip replacement protocol with weight bearing as tolerated and anterior hip precautions. The patient will receive Aspirin and sequential compression devices for DVT prophylaxis. Leave the Hemovac drain in for 48 hours. Check culture results. Continue IV antibiotics for 6 weeks postoperatively. Disposition to be determined
--- NOTE | 2022-12-08 07:23 | PM.PN.1 ---
Subjective Subjective Date Patient Seen: 12/08/22 Interval history: Patient has no complaints. She currently feels well. Would like to go home and says she would refuse SNF for her IV abx course. [facility] working on IV home infusions. Exam Vital Signs (past 8 hours): - 12/08/22 00:25 12/08/22 02:49 12/08/22 05:21 Temperature 96.5 F L 97.5 F L Pulse Rate 55 L 54 L Respiratory Rate 18 18 Blood Pressure 104/50 L 113/45 L Pulse Oximetry 95 95 Oxygen Delivery Method Room Air Oxygen Flow Rate 0 Oxygen Delivery Method Room Air Oxygen Flow Rate 0 Narrative Exam Narrative: Gen: Alert, oriented, well-developed 87 y.o. female, NAD HEENT: normocephalic, atraumatic, conjunctiva clear, sclera non-icteric, oral mucosa pink and moist Neck: supple, full ROM, no JVD, trachea is midline Resp: Lungs CTA, non-labored breathing CV: RRR, no murmur or rubs Abd: soft, non-tender, normoactive BTs Skin: fresh and healing surgical scar on right inguinal area extending to mid thigh, did not appreciate any drainage Neuro: Alert and oriented X 4 w/no focal deficits. Speech clear and coherent. Extremities: is normally ambulatory, currently non-weightbearing due to pain, negative Shanice?s sign Psyche: normal mood and affect. Objective Labs 12/08/22 05:57 12/08/22 05:57 Labs: Laboratory Results - last 24 hr 12/07/22 12/08/22 12/08/22 20:30 05:57 05:57 WBC 8.0 RBC 2.94 L Hgb 9.2 L Hct 27.1 L MCV 92.4 MCH 31.3 MCHC 33.9 RDW 13.9 Plt Count 218 Neut % (Auto) 75.9 H Lymph % (Auto) 10.4 L [place] % (Auto) 10.7 Eos % (Auto) 2.5 Baso % (Auto) 0.5 Neut # (Auto) 6100 Lymph # (Auto) 800 L [place] # (Auto) 900 Eos # (Auto) 200 Baso # (Auto) 0 Sodium 138 Potassium 3.3 L Chloride 105 Carbon Dioxide 25 BUN 22 H Creatinine 0.78 Estimated GFR > 60 BUN/Creatinine Ratio 28.2 H Glucose 93 Calcium 8.1 L Magnesium 1.8 Total Bilirubin 0.8 AST 48 H ALT 27 Alkaline Phosphatase 89 Total Protein 5.1 L Albumin 2.3 L Globulin 2.8 Albumin/Globulin Ratio 0.8 L Vancomycin Trough 12.9 PFSH Medical History Essential hypertension Gout HTN (hypertension) Osteoarthritis Surgical History History of right hip replacement History of total right knee replacement (2001) Hx of appendectomy Hx of tonsillectomy Family History Mother Old age Father Alcoholism Social History household members: none Smoking Status: Former smoker alcohol intake: current 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 Right prosthetic hip infection -wound cultures growing Citrobacter, spoke with Grady CROSS who recommended IV ertapenem 1g q24h x6 weeks -underwent right hip I & D and washout with Dr. Kerr on 12/07 -ertapenem 1g daily -continue IV Dilaudid, oxycodone as needed 2. Hypertension, chronic -continue atenolol and verapamil -hold HCTZ secondary to dec K 3. Hypokalemia, present on admission -likely secondary to her thiazide diuretic -received oral potassium replacement 4. History of gout -continue allopurinol Dispo: Home with IV infusions vs infusion center for IV abx for 6 weeks. Time Spent With Patient Critical Care time: I spent a total of [] minutes of critical care time on this patient's care today; this time is exclusive of procedural time.
[2022-12-08 08:11] LABS: C-Reactive Protein Quant 16.1 mg/dL (<1.0)
[2022-12-08 08:46] LABS: Erythrocyte Sedimentation Rate 70 MM/HR (0-20)
[2022-12-08] MEDS: MAGNESIUM SULFATE 2 GM/50 ML PIGGYBACK IV (10:05)
[2022-12-08] MEDS: atenoloL 50 MG TABLET PO ×2 (10:06→20:18)
[2022-12-08] MEDS: hydroCHLOROthiazide 25 MG TABLET PO (10:06)
[2022-12-08] MEDS: VANCOMYCIN 750 MG/150 ML PIGGYBACK 150 MG IV (10:06)
[2022-12-08] MEDS: ASPIRIN EC 81 MG TABLET PO ×2 (10:06→20:18)
[2022-12-08] MEDS: VERAPAMIL 120 MG TABLET PO ×2 (10:06→20:18)
[2022-12-08] MEDS: allopurinoL 100 MG TABLET 200 MG PO (10:07)
[2022-12-08] MEDS: DOCUSATE 100 MG CAPSULE PO ×2 (10:07→20:18)
[2022-12-08] MEDS: POTASSIUM CHLORIDE 20 MEQ TAB 40 MEQ PO (10:16)
--- NOTE | 2022-12-08 11:00 | PT.IIE ---
Current Diagnoses Essential (primary) hypertension (12/05/22) Infection following a procedure, other surgical site, initial encounter (12/05/22) Procedure and treatment not carried out because of other contraindication (12/05/22) Presence of right artificial hip joint (12/05/22) Surgery Performed Operation Date: 12/07/22 17:15 Actual Procedures p Irrigation and excisional debridment with revision one component right hip(Right) - Michelle Kerr MD Surgical History (Last Reviewed 12/08/22 @ 07:23 by Suman Amador PA-C) History of right hip replacement History of total right knee replacement (2001) Hx of appendectomy Hx of tonsillectomy Medical History (Last Reviewed 12/08/22 @ 07:23 by Suman Amador PA-C) Essential hypertension Gout HTN (hypertension) Osteoarthritis Physical Therapy Inpatient Evaluation/Re-Eval M1 PT/OT-IP Prior Functional Status Start: 12/08/22 13:05 Freq: NEEDED Status: Active Protocol: Document 12/08/22 11:00 AB (Rec: 12/08/22 13:17 AB [id number]) Medical Review Prior Functional Status Medical History Reviewed Yes Communication able to make needs known Mobility and Gait pt stated that she is modified independent with all mobilities using a 4WW Social History Household Members none Living Arrangements House Number of Floors (Floors) One Floor Number of Stairs To Enter/Railing? 1 step to enter Home Environment High Toilet,Tub/Shower Home Equipment Front Wheel Walker,Four Wheel Walker,Bedside Commode,Shower Seat without Backrest,Grab Bars In Shower Additional Social History Comment pt stated that she has friends that can stay with her to assist her if needed M2 PT-IP Current Condition Start: 12/08/22 13:05 Freq: NEEDED Status: Active Protocol: Document 12/08/22 11:00 AB (Rec: 12/08/22 13:17 AB [email or web address]) Physical Therapy Current Condition Current Condition Evaluation Date 12/08/22 Treatment Diagnosis s/p R NYLA anterior approach revision and I&D; difficulty in walking Onset Date 12/05/22 M3 PT-IP Subjective Start: 12/08/22 13:05 Freq: NEEDED Status: Active Protocol: Document 12/08/22 11:00 AB (Rec: 12/08/22 13:17 AB [email or web address]) Subjective Physical Therapy Visit Type Type Initial Evaluation Visit Start Time 11:00 Visit Stop Time 11:31 Total Visit Minutes 31 Number of [employer] OPERATOR Visits 0 Physical Therapy Visit Comments Patient Comments agreeable to do PT Therapy Pain Assessment Pain When Pain Assessed At Rest Location Right Hip Scale Used pain scale not stated M4 PT-IP Mobility and Gait Start: 12/08/22 13:05 Freq: NEEDED Status: Active Protocol: Document 12/08/22 11:00 (Rec: 12/08/22 13:17 [id number]) PT-Bed Mobility Assessment Supine to Sit Supine to Sit Minimal Assistance PT-Transfer Assessment Sit to and From Stand Sit to and from Stand Minimal Assistance,1 Person Assistance,Use of Upper Extremities Equipment Transfer Assistive Device Gait Belt,Front Wheeled Walker Orthotic/Prosthetic Devices or Brace: No Transfers Transfer Destination Toilet Transfer Technique ambulated Transfer Ability Level of Assist Contact Guard Assistance, Minimal Assistance,1 Person Assistance,Use of Upper Extremities Comments Mobility Comments educated pt on anterior hip precautions. pt able to recall 1/2. completed supine to sit min A and max cues. sit to stand min A and cues for techniques and safety. pt ambulated in room using FWW ~ 25 ft CGA and requested to use the toilet. ambulated to the toilet using FWW. cued for hip precautions. able to maintain standing using FWW for support CGA while assisted with brief management. completed sit to stand from the toilet min A and ambulated to the sink using FWW CGA. able to maintain standing balance using fWW CGA while completing handwashing. pt ambulated to the chair and agreed to sit up on the chair. positioned pt on the chair. call light and table placed within reach. Gait Assessment Gait Gait Assistance Required: Contact Guard Assist Distance (Feet) 25 Able to Maintain Weight Bearing Status Yes During Gait Assistive Devices Assistive Device Gait Belt,Front Wheeled Walker Orthotic/Prosthetic Devices or Brace: No Gait Deviations General Gait Pattern Decreased Stride Length, Decreased Feet Clearance, Flexed Trunk,Lateral Trunk Lean Factors Limiting Gait Function Factors Limiting Gait Function Decreased Activity Tolerance, Decreased Strength,Limited Range of Motion,Pain,Poor Balance,Poor Safety Awareness PT-Balance Assessment Sitting Balance and Reactions Static Sitting Balance Ability Good Dynamic Sitting Balance Ability Good Standing Balance and Reactions Static Standing Balance Ability Fair Dynamic Standing Balance Ability Fair Device Used FWW M5 PT-IP Objective Assessments Start: 12/08/22 13:05 Freq: NEEDED Status: Active Protocol: Document 12/08/22 11:00 AB (Rec: 12/08/22 13:17 AB [email or web address]) Orientation Orientation/Cognition Level of Alertness Alert Orientation Name,Place,Situation Language Function Ability No Deficits Noted Safety Awareness Decreased Safety Awareness Memory Description Short Term Impaired Gross Range of Motion Lower Extremity ROM Assessment Within Functional Limits Strength Lower Extremity Strength Assessment Right Impaired Hip 3+/5 Knee 4-/5 Sensation Assessment Sensation Gross Sensation WNL Muscle Tone Muscle Tone WNL Yes M6 PT-IP Treatment Start: 12/08/22 13:05 Freq: NEEDED Status: Active Protocol: Document 12/08/22 11:00 AB (Rec: 12/08/22 13:17 AB [id number]) Physical Therapy Treatment Education Education Provided Precautions,Weight Bearing Status,Post-Op Packet,Safety M7 PT-IP Assessment and Plan Start: 12/08/22 13:05 Freq: NEEDED Status: Active Protocol: Document 12/08/22 11:00 AB (Rec: 12/08/22 13:17 AB [email or web address]) PT Summary Assessment and Plan Potential Rehabilitation Potential Fair Status of Condition at Evaluation Evolving Summary Impairments Pain,ROM,Strength,Balance, Coordination,Sensation,Tone, Cognition,Bed Mobility, Transfers,Gait,Activity Tolerance Assessment Summary pt requiring min A with mobility using fWW and cues for hip precautions. pt stated that she has friends that can assist her but she is not clear if they can stay with her to assist her if needed. d/c plan depending on progress. will continue to assess. Goals Bed Mobility Goal Independent Transfer Goal Independent,Front Wheeled Walker Gait Goal Independent,Front Wheel Walker Gait Distance 150 Other Goals up/down 1 step SBA using FWW Days to Meet Goals 10 Frequency of Treatment Frequency Of Treatment Once a Day Treatment Plan Physical Therapy Treatment Plan Bed Mobility Training,Transfer Training,Gait Training, Therapeutic Exercise,Balance Retraining,Post Op Education, Discharge Planning,Hot or Cold Pack,Neuromuscular Re-ed, Coordination Retraining,Manual Therapy Precautions Anterior Hip Precautions No Hip Extension,No Hip External Rotation Weight Bearing Status Weight Bearing Status Weight Bear as Tolerated Allowed Weight Bearing Amount (enter % RLE WBAT or #) (%) Recommendations To Nursing Amount of Assist Needed 1 Person Assist Discharge Recommendations PT Discharge Recommendations Home with 06/06 Assist Available,Home Health,SNF Rehab,Home vs SNF Transportation Needs at Discharge Private Vehicle,Wheelchair/ Cabulance
--- NOTE | 2022-12-08 11:08 | CM.DPNOTE ---
Discharge Planning Note: Met with patient and discussed discharge planning. Patient firmly wanting to go home to her [place] home where she lives alone but has good friend support and a DPOA who is helpful. She is very independent, drives. She has been in SNFs in past and doesn't want to go to. She is willing to drive herself to the close by infusion clinic, but we discussed that Ortho would not necessarily want her to be driving. We discussed having in-home infusions that she would need to administer herself and she states she would be willing to learn. She reports that she has a couple of retired nurse friends who could be at initial visit and be helpful for her. Spoke with Dr Peters regarding which IV antibiotic would he want her to be dc'd on; provided update on patient's desire to return home. Left message with [facility] re if they go to [place] or not and if so, once antibiotic is known, the cost of the drug ([facility]). [facility] is back up plan and we referred yesterday. Spoke with Billie today and she is looking into case and depending on drug/cost, could possibly accept. She will start the [facility] Auth today. Patient will need a PICC, Dr Peters ordering. Plan: Follow up on antibiotic and notify [facility] and [facility]. PICC is pending. Carolyne Gardiner RN/LORIP
--- NOTE | 2022-12-08 14:04 | CM.DPNOTE ---
Discharge Planning Note: Notified [facility] of IV antibiotic: Ertapenum 1 gram Q 24 hours x 6 weeks. They will look into and return call re RN availability and costs. They will also call patient. Also notified [facility] of antibiotic. Plan: Home with [facility] vs [facility], pending. Carolyne Gardiner, RN/DCP
[2022-12-08] MEDS: ERTAPENEM 1 GM in SODIUM CHLORIDE 0.9% 100 ML IV (15:04)
[2022-12-08] MEDS: SODIUM CHLORIDE 0.9% 250 ML 21 ML IV (15:06)
--- NOTE | 2022-12-08 16:18 | DI.RAD.S_ITS ---
PROCEDURE: XR CHEST FOR PICC 1V INDICATIONS: Line placement COMPARISON: None. FINDINGS: PICC was placed by the intravenous therapy team from the left side. Fluoroscopic spot film demonstrates the tip of PICC projecting to the area of SVC. IMPRESSION: Tip of PICC projects to the area of SVC. Dictated by: Dionisio Goel M.D. on 12/08/2022 at 16:31 Approved by: Dionisio Goel M.D. on 12/08/2022 at 16:32
--- NOTE | 2022-12-08 23:44 | PC.NURSE ---
Patient is alert and oriented. Breath sounds CTA with RA sat of 95%. HRR but bradycardic with rate in 50's. Denied nausea. BT present and is passing flatus. Denied dysuria, frequency or urgency with urination. Is able to move herself in bed. Is assisted out of bed with 1 assist and walks with walker; has difficulty getting to a sitting position. OPAL dressing functioning and intact with small spot of drainage at distal end. Hemovac is intact and compressed. Declines use of SCD's tonight so reminded to ankle wave. Denied pain and is taking only scheduled Tylenol + Ibuprofen. CMS is intact although still has some difficulty with lifting right leg. Fall risk score is high and bed alarm is activated although patient does call for assistance appropriately.
[2022-12-09] MEDS: IBUPROFEN 400 MG TABLET PO ×3 (00:01→12:55)
[2022-12-09] MEDS: ACETAMINOPHEN 325 MG TABLET 650 MG PO ×3 (00:02→12:55)
[2022-12-09 03:00] VITALS: BP 123/53; PULSE 57; RESP 19; TEMP 36.2; O2SAT 96
[2022-12-09] MEDS: SODIUM CHLORIDE 0.9% FLUSH 10 ML IV ×2 (05:47→08:51)
[2022-12-09 06:52] LABS: HEMOLYSIS < 15 (0-50); Potassium 3.4 mmol/L (3.4-5.1)
[2022-12-09 08:00] VITALS: BP 118/54; PULSE 57; RESP 17; TEMP 36.2; O2SAT 95
--- NOTE | 2022-12-09 08:36 | PM.PNPO.1 ---
Subjective Subjective Date Patient Seen: 12/09/22 Time Patient Seen: 08:36 Interval history: Sitting up in bed, comfortable, excited that culture results are back. She would like to go home w/ IV abx via [facility] rather than to SNF, and [facility] is working on this. Exam Vital Signs (past 8 hours): - 12/09/22 03:00 12/09/22 03:00 Temperature 97.2 F L Pulse Rate 57 L Respiratory Rate 19 Blood Pressure 123/53 L Pulse Oximetry 96 96 Oxygen Delivery Method Room Air Oxygen Flow Rate 0 0 Oxygen Delivery Method Room Air Oxygen Flow Rate 0 Narrative Exam Narrative: 5/5 strength in hip flexors, quadriceps, hamstrings, DF, PF, EHL on right. Sensation to light touch intact throughout RLE. Calf soft, compressible, nontender and without palpable cords or masses. Hemovac w/ 165 ml bloody drainage yesterday, 25 ml today. 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 (2) Postoperative wound infection of right hip: Assessment and Plan narrative: S/p I&D w/ replacement of femoral head and acetabular polyethylene liner. Continue WBAT to RLE w/ anterior hip precautions. ASA 81 mg BID x 6 weeks for VTE prophylaxis. Wound cultures growing Citrobacter, [place] ID recommended IV ertapenem 1g q24h x6 weeks. SNF vs home w/ HH, final dispo per CM. F/u w/ ortho in 2 weeks for wound check, staple removal, xrays. Hemovac x 48 hours after surgery. May remove prior to discharge if pt goes today; otherwise, will order removal tomorrow morning. Postoperative Procedures: Procedures Operation Date: 12/07/22 17:15 Actual Procedure Side Surgeon p Irrigation and excisional debridment with revision one component right hip Right Michelle Pushpa Kerr MD Postoperative day: 2
[2022-12-09] MEDS: VERAPAMIL 120 MG TABLET PO (08:42)
[2022-12-09] MEDS: DOCUSATE 100 MG CAPSULE PO (08:43)
[2022-12-09] MEDS: allopurinoL 100 MG TABLET 200 MG PO (08:43)
[2022-12-09] MEDS: ASPIRIN EC 81 MG TABLET PO (08:43)
[2022-12-09] MEDS: atenoloL 50 MG TABLET PO (08:43)
[2022-12-09 09:00] VITALS: O2SAT 98
--- NOTE | 2022-12-09 10:51 | PT.IPTN ---
Current Diagnoses Essential (primary) hypertension (12/05/22) Infection following a procedure, other surgical site, initial encounter (12/05/22) Procedure and treatment not carried out because of other contraindication (12/05/22) Presence of right artificial hip joint (12/05/22) Surgery Performed Operation Date: 12/07/22 17:15 Actual Procedures p Irrigation and excisional debridment with revision one component right hip(Right) - Michelle Kerr MD Physical Therapy Treatment Note M2 PT-IP Current Condition Start: 12/08/22 13:05 Freq: NEEDED Status: Active Protocol: Document 12/09/22 10:02 SP (Rec: 12/09/22 14:22 SP [id number]) Physical Therapy Current Condition Current Condition Evaluation Date 12/08/22 Treatment Diagnosis s/p R NYLA anterior approach revision and I&D; difficulty in walking Onset Date 12/05/22 M3 PT-IP Subjective Start: 12/08/22 13:05 Freq: NEEDED Status: Active Protocol: Document 12/09/22 10:02 SP (Rec: 12/09/22 14:22 SP [id number]) Subjective Physical Therapy Visit Type Type Treatment Note Visit Start Time 10:02 Visit Stop Time 10:51 Total Visit Minutes 49 Notes Vitals: supine: BP 116/53 HR 59 SaO2 mid 90s Number of TRIAL MANAGER Visits 1 Physical Therapy Visit Comments Patient Comments Pt agreeable to do PT Patient Goals Return home with friends to assist her 06/06 couple of days and agreeable to HHPT. Therapy Pain Assessment Pain When Pain Assessed During Mobility Pain Present Pain Present Pain Reported Location Right Hip Intensity 3 Scale Used Numeric (0 - 10) Description With Movement Pain Behaviors Facial Grimacing Pain Management Techniques Distraction,Modification of Treatment,Re-positioning, Timing of Activity with Medications M4 PT-IP Mobility and Gait Start: 12/08/22 13:05 Freq: NEEDED Status: Active Protocol: Document 12/09/22 10:02 SP (Rec: 12/09/22 14:22 SP [id number]) PT-Bed Mobility Assessment Supine to Sit Supine to Sit Standby Assistance Sit to Supine Sit to Supine Standby Assistance Scooting Scooting to Edge of Bed Standby Assistance PT-Transfer Assessment Sit to and From Stand Sit to and from Stand Standby Assistance,Use of Upper Extremities Equipment Transfer Assistive Device Gait Belt,4 Wheeled Walker Orthotic/Prosthetic Devices or Brace: No Transfers Transfer Destination Bed,Toilet Transfer Technique ambulated w/ 4WW Transfer Ability Level of Assist Standby Assistance,Use of Upper Extremities Comments Mobility Comments Pt completed instructed post op ex: AP, heel slide, QS, GS. Supine< >sit HOB flat heavy use L bed rail (states has at home) then UE support RLE to EOB, Scoot to EOB SBA. STS, cued push from EOB and opp UE on FWW SBA, cued wt shift over B feet, noted little sway posterior but no LOB. GAit to bathroom 10 ft w/FWW step to patterning leading RLE. pivot back to toilet w/ FWW, cued for brief mgt 1 UE at time for safety on opp UE on grab bar , uses both hands but no LOB. stand>sit use grab bar CGA, cues slow descent and allow knees bend. Pt reports has higher toilet riser and arm rests to use easier. unable to void, STS use grab bar and opp UE on L thigh, CG/close SBA, self brief mgt better UE support on grab bar. Gait 10 ft to sink w/FWW, good patterning step to, cued fWW facing sink, noted abdomen lean into sink for support while wash hands, no LOB provided SBA. Gait to door, able to ascend/descend 1 PF step proper LE patterning LLE up/ RLE down leading w/ 4WW Min A for trunk and 4WW mgt which she said her friend can assist her with and has in the past if needed. Pt requested to get back into bed SBA use UE helping RLE into bed, cued taller posture and body closer to FWW during gait for decreased stress on back and improved strength/energy conservation during gait due to demonstrates leaning forward las 10 ft to bed. TRIAL MANAGER discussed ok to return home with friend 06/06 assist available when medically cleared for few days HHPT to progress strength and functional mobility. TRIAL MANAGER discussed acquiring grab/ supervisor tank house to assist brief/pant mgt don/doffing due to required assist and review shower support. Pt declined recommended OT consult states remembers from previous knee surgery. Gait Assessment Gait Gait Assistance Required: Standby Assistance Distance (Feet) 45 Able to Maintain Weight Bearing Status Yes During Gait Assistive Devices Assistive Device Gait Belt,Front Wheeled Walker Orthotic/Prosthetic Devices or Brace: No Gait Deviations General Gait Pattern Decreased Stride Length, Decreased Feet Clearance, Flexed Trunk Factors Limiting Gait Function Factors Limiting Gait Function Decreased Activity Tolerance, Decreased Strength,Limited Range of Motion,Pain,Poor Balance,Poor Safety Awareness Comments Gait Comments see mobility comments. Stair Climbing Assessment Evaluation Level of Assist On Stairs Contact Guard Assistance, Minimal Assistance,1 Person Assistance Devices Stair Climbing Assistive Devices Four Wheel Walker Technique/Endurance Stair Climbing Direction Ascend and Descend Stair Climbing Technique Step to Step Number of Steps Climbed 1 Stair Climbing Set # Repetitions (reps) 1 Comments Stair Climbing Comments Min A for trunk and 4WW mgt on /off step. Pt recommended borrow fWW for step mgt at this time, pt stated can borrow from friend to use. Discussed friends needs use gait belt support and assist fww/4ww on/off step at this time for safety. Pt stated understood and adimit her friend can help her. PT-Balance Assessment Sitting Balance and Reactions Static Sitting Balance Ability Normal Dynamic Sitting Balance Ability Good Standing Balance and Reactions Static Standing Balance Ability Good Dynamic Standing Balance Ability Fair Device Used 4ww M5 PT-IP Objective Assessments Start: 12/08/22 13:05 Freq: NEEDED Status: Active Protocol: Document 12/08/22 11:00 AB (Rec: 12/08/22 13:17 AB [id number]) Orientation Orientation/Cognition Level of Alertness Alert Orientation Name,Place,Situation Language Function Ability No Deficits Noted Safety Awareness Decreased Safety Awareness Memory Description Short Term Impaired Gross Range of Motion Lower Extremity ROM Assessment Within Functional Limits Strength Lower Extremity Strength Assessment Right Impaired Hip 3+/5 Knee 4-/5 Sensation Assessment Sensation Gross Sensation WNL Muscle Tone Muscle Tone WNL Yes M6 PT-IP Treatment Start: 12/08/22 13:05 Freq: NEEDED Status: Active Protocol: Document 12/09/22 10:02 SP (Rec: 12/09/22 14:22 SP [id number]) Physical Therapy Treatment Exercises Exercises Ankle Pumps,Gluteal Sets,Quad Sets,Heel Slides Knee ROM Measurement 70 deg knee flexion Education Education Provided Precautions,Weight Bearing Status,Post-Op Packet,Safety M7 PT-IP Assessment and Plan Start: 12/08/22 13:05 Freq: NEEDED Status: Active Protocol: Document 12/09/22 10:02 SP (Rec: 12/09/22 14:22 SP [id number]) PT Summary Assessment and Plan Potential Rehabilitation Potential Fair Status of Condition at Evaluation Evolving Summary Impairments Pain,ROM,Strength,Balance, Coordination,Sensation,Tone, Cognition,Bed Mobility, Transfers,Gait,Activity Tolerance Progress Towards Goals Progressing Toward Goals,Slow Progress due to Pain,Slow Progress due to Activity Tolerance Assessment Summary Pt sBA during bed mob w/ rail, CGA during transfers w/4WW, sBA during gait w/ 4ww, min A for 1 pf step mgt. Pt required Mod safety cues for proper hand placement sitting due to tends to leave UEs on FWW/4WW and quick plop descend . Pt states is really good about doing at home. TRIAL MANAGER recommende 24/7 at least for few days and pt stated her friends can provide that support, when medically cleared. Pt welcoming to HHPT for increased strength and functional mobility independence. Pt declined OT recommendation for DME support for dressing/showers. Goals Bed Mobility Goal Independent Transfer Goal Independent,Front Wheeled Walker Gait Goal Independent,Front Wheel Walker Gait Distance 150 Other Goals up/down 1 step SBA using FWW Days to Meet Goals 10 Frequency of Treatment Frequency Of Treatment Once a Day Treatment Plan Physical Therapy Treatment Plan Bed Mobility Training,Transfer Training,Gait Training, Therapeutic Exercise,Balance Retraining,Post Op Education, Discharge Planning,Hot or Cold Pack,Neuromuscular Re-ed, Coordination Retraining,Manual Therapy Other Recommendations and Next Treatment post op ex, safety education Focus transfers and gait w/FWW vs 4WW recommended. Precautions Anterior Hip Precautions No Hip Extension,No Hip External Rotation Other Precautions Reviewed precautions, cues and ableto identify, good maintaining precautions during mobility. Weight Bearing Status Weight Bearing Status Weight Bear as Tolerated Allowed Weight Bearing Amount (enter % RLE WBAT or #) (%) Recommendations To Nursing Amount of Assist Needed Standby Assistance Discharge Recommendations PT Discharge Recommendations Home with 24/7 Assist Available,Home Health Equipment Needed for Home Before FWW borrow for step mgt Discharge Transportation Needs at Discharge Private Vehicle
[2022-12-09 11:00] VITALS: BP 125/62; PULSE 63; RESP 17; TEMP 36.2; O2SAT 98
[2022-12-09] MEDS: ERTAPENEM 1 GM in SODIUM CHLORIDE 0.9% 100 ML IV (12:54)
[2022-12-09] MEDS: POTASSIUM CHLORIDE 20 MEQ TAB 40 MEQ PO (12:55)
--- NOTE | 2022-12-09 14:18 | PC.NURSE ---
Pt spoke with infusion clinic and got the approval to proceed with abx treatment. Pt's friends arrived with clothes for pt and OUTPLACEMENT CONSULTANT assisted with getting her dressed. Stroke education, OPAL drain training, new abx education, anterior hip precautions and s/s of worsening infection was communicated and recieved well by pt and friends. IVs were d/c's, execpt for PICC in [facility] and hemovac was also d/c'd, pt tolerated it well. Pt went out via w/c with OUTPLACEMENT CONSULTANT and all her belongs @ [id number].
--- NOTE | 2022-12-09 15:53 | PM.DS.1 ---
History of Present Illness History of Present Illness Date Patient Seen: 12/09/22 Time Patient Seen: 21:41 Chief complaint: wound infection Narrative: Mandy Wallace is very pleasant 87-year-old female, former smoker with history of hypertension and right hip replacement surgery on 11/17/2022, presented to the emergency department with clear brown drainage from her right hip incision and increasing pain with movement and inability to weight bear due to pain.? Patient states that she saw her surgeon, Dr. Kerr, last week who used a scapel to open up the wound and was able to obtain a wound culture sample.? Patient states the following day the site had drained copious amounts of clear brown fluid.? Patient denies any swelling prior to the drainage.? Patient states that the pain is now so severe she can not stand, which she was able to do so after her hip surgery and prior to her appointment with her surgeon. She denies fever or chills, informed me that she had not mounted a white count, denies shortness of breath, chest pain, nausea or vomiting. LE CT reported There is a fluid collection deep to the superficial fascia with mild peripheral enhancement and a few scattered foci of gas suspicious for infection by gas-forming organism.She is afebrile, blood pressure 125/51 heart rate 56 respiratory rate 18 oxygen saturation of 96% on room air she weighs 86 kg with a BMI of 28.1. Currently she does not have white count she has a mild left shift though of 8100 sodium 133 potassium 2.6 for which she was repleted 40 mEq use in the ED and repleted again once she was on the floor, chloride 92 BUN 47 EGFR is 52 with a normal creatinine AST 64 and procalcitonin was 0.86, COVID-19 is pending. Discharge Providers Provider Date of admission: 12/05/22 18:15 Discharge Date: 12/09/22 Primary care physician: NAKITA Cole Consults: 12/05/22 19:44 Consult to Physician Routine Comment: Consulting Provider: Michelle Kerr Reason for consultation: post surgical wound infection Has provider been notified: Yes 12/06/22 12:17 Consult to Dietitian, Adult Routine Comment: Evaluation postoperatively Reason For Exam: BMI28 12/07/22 13:33 Consult to Anesthesiology Routine Comment: Consulting Provider: Anesthesiologist Reason for consultation: Regional block for post operative pain control 12/07/22 20:04 Consult to Discharge Planning Routine Comment: 6 weeks iv abx Consult to Physical Therapy Evaluate & Treat Comment: Physician Instructions: post op NYLA protocol Discharge provider: Julio Peters DO Summary Hospital Course Discharge Diagnosis: 1.? Right prosthetic hip infection -wound cultures growing Citrobacter, spoke with Grady CROSS who recommended IV ertapenem 1g q24h x6 weeks -underwent right hip I & D and washout with Dr. Kerr on 12/07 -ertapenem 1g daily -continue IV Dilaudid, oxycodone as needed 2. Hypertension, chronic -continue atenolol and verapamil -hold HCTZ secondary to dec K 3. Hypokalemia, present on admission -likely secondary to her thiazide diuretic -received oral potassium replacement 4. History of gout -continue allopurinol Hospital Course: Patient admitted for right prosthetic hip joint infection with citrobacter. ID recommended IV ertapenem x6 weeks due to resistance with 3rd gen cephalosporins. Ortho took for washout and she was discharged to home with IV home infusions for 6 weeks to finish on January 19, 2023. Will have f/u with Dr. Isaak CROSS in clinic next week. Time Spent with Patient Time spent: Greater than 30 minutes Exam Vital Signs (past 8 hours): - 12/09/22 08:00 12/09/22 11:00 12/09/22 09:00 Temperature 97.1 F L 97.1 F L Pulse Rate 57 L 63 Respiratory Rate 17 17 Blood Pressure 118/54 L 125/62 Pulse Oximetry 95 98 98 Oxygen Delivery Method Room Air Oxygen Flow Rate 0 0 0 Oxygen Delivery Method Room Air Oxygen Flow Rate 0 Narrative Exam Narrative: Gen: Alert, oriented, well-developed 87 y.o. female, NAD HEENT: normocephalic, atraumatic, conjunctiva clear, sclera non-icteric, oral mucosa pink and moist Neck: supple, full ROM, no JVD, trachea is midline Resp: Lungs CTA, non-labored breathing CV: RRR, no murmur or rubs Abd: soft, non-tender, normoactive BTs Skin: fresh and healing surgical scar on right inguinal area extending to mid thigh, did not appreciate any drainage Neuro: Alert and oriented X 4 w/no focal deficits. Speech clear and coherent. Extremities: is normally ambulatory, currently non-weightbearing due to pain, negative Shanice?s sign Psyche: normal mood and affect. 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 You will now need to be on IV antibiotics for 6 weeks at home. We've arranged an appointment with Dr. Mulligan infectious disease at [facility] and your appt time is listed in your paperwork. Discharge orders & Medications Prescriptions: New ertapenem [Invanz] 1 gram recon soln 1 g IM Q24H 42 Days Qty: 42 0RF Rx Instructions: final dose on January 19, 2023 Continued verapamil 120 mg Tablet 120 mg PO BID allopurinol 300 mg Tablet 300 mg PO DAILY hydrochlorothiazide 25 mg Tablet 25 mg PO DAILY atenolol 50 mg Tablet 50 mg PO BID acetaminophen 325 mg Tablet 650 mg PO Q6HR Qty: 60 0RF ibuprofen 400 mg Tablet 400 mg PO Q6HR Qty: 60 0RF oxycodone 5 mg Tablet 5 mg PO Q3HR PRN (Reason: Pain, Moderate (4-6)) Qty: 40 0RF aspirin 81 mg Tablet,Delayed Release (Dr/Ec) 81 mg PO BID 42 Days Qty: 84 0RF Follow up/Referrals: Sara Mulligan MD [Non-Staff] - (On 12/13 at 11am) Jackie Castellanos ARNP [Primary Care Provider] - 2 Weeks Michelle Kerr MD [Physician] - 12/22/22 2:00 pm (appt:12/22 @ 2:00 with linh laird at [address] [place] [address] please arrive 15 min prior to scheduled appointment time) Diet/Activity/Treatments Activity: Weight bearing as tolerated to right leg. Anterior hip precautions. Cold/Heat Therapy: Ice to hip as needed for pain. Skin/Wound/Dressing Care Dressing: May shower; leave OPAL dressing in place until follow up in office. Batteries will in 5-7 days; when this happens, may cut off battery pack and dispose of it. No bathing or otherwise soaking incision. Call the office if the dressing becomes saturated inside. Visit Report/Discharge Packet Instructions: DI for Incision and Drainage of a Joint, Ertapenem Injection Stand Alone Forms: Patient Portal/API, Stroke Signs & Symptoms Discharge Data Primary Care Provider: Jackie Castellanos
--- NOTE | 2022-12-10 09:02 | CM.DPNOTE ---
DCP Note Late Entry Patient discharged yesterday, home w/friends, cleared by therapies for this plan [facility] had reviewed insurance coverage with patient yesterday and patient was agreeable to plan for home infusion. [facility] scheduled an RN to visit patient this morning 12.10.22 at approx 1030 [address] Discussed HH services with patient and she denied the need yesterday stating she knew how to access HH services through her insurance co and/or PCP and wanted to return home first, to see how things go, before agreeing to HH Plan: Discharge was 12.09.22, home w/friends, [facility] for Q 24 Ertapenem 1g x 6 weeks (all requested records faxed to [facility]), close outpatient f/u recommended. Patient denied need for HH services JW
[2022-12-20 15:01] LABS: Bacteria Det by PCR Univ WA DETECTED
== END 2022-12-09 14:15 | disposition home or self-care (01) | DRG 467 ==
LOC: ED 16:21 → AC 18:16
PROVIDERS: Emergency Medicine; Nurse Practitioner Family; Orthopaedic Surgery; Student in an Organized Health Care Education/Training Program; Admitting Provider Neuromusculoskeletal Medicine, Sports Medicine; Emergency Provider Registered Nurse; PCP Registered Nurse; Referring Provider Registered Nurse; Visit Provider Neuromusculoskeletal Medicine, Sports Medicine
PROC: 0SRR0JA Replacement of Right Hip Joint, Femoral Surface with Synthetic Substitute, Uncemented, Open Approach (ICD-10-PCS; principal; 2022-12-07 17:15)
DX: T84.51XA Infection and inflammatory reaction due to internal right hip prosthesis, initial encounter (principal); E87.1 Hypo-osmolality and hyponatremia; E87.6 Hypokalemia; I10 Essential (primary) hypertension; E66.3 Overweight; M10.9 Gout, unspecified; M65.851 Other synovitis and tenosynovitis, right thigh; B96.89 Other specified bacterial agents as the cause of diseases classified elsewhere; Z20.822 Contact with and (suspected) exposure to COVID-19; Z68.28 Body mass index [BMI] 28.0-28.9, adult; Z87.891 Personal history of nicotine dependence
CPT/HCPCS: 36415; 36569; 36592; 73501; 73502; 73701; 76000; 80053; 80202; 82962; 83605; 83735; 84132; 84145; 85025; 85610; 85651; 86140; 87040; 87070; 87075; 87077; 87150; 87176; 87186; 87205; 87635; 87801; 93005; 96365; 96366; 97116; 97162; 97530; 99284; C1776; C9803; C9290; J1335; J1642; J2405; J2543; J2704; J3010; J3475; Q9967

== ENCOUNTER 2022-12-10 07:10 | Observation (INO) | payer MEDICARE, SELFPAY ==
[2022-12-05 20:06] VITALS: BMI 28.1
[2022-12-10] VITALS (12 sets, daily range): BP systolic 108–163; BP diastolic 39–76; PULSE 70–90; RESP 11–18; TEMP 36–36.9; O2SAT 92–98; BMI 27.1
--- NOTE | 2022-12-10 | DI.RAD.S_ITS ---
PROCEDURE: XR HIP W PEL IF DONE RT 2V INDICATIONS: POST REDUCTION TECHNIQUE: 2 C-arm views of the hip were acquired. COMPARISON: [facility], [place], XR HIP W PEL IF DONE RT 2V, 12/10/2022, 7:29. FINDINGS: Successful reduction of previously dislocated total hip arthroplasty. IMPRESSION: Fluoroscopic imaging utilized for reduction of a dislocated total hip arthroplasty. Dictated by: Torres Agudelo M.D. on 12/10/2022 at 16:54 Approved by: Torres Agudelo M.D. on 12/10/2022 at 16:55
--- NOTE | 2022-12-10 07:19 | DI.RAD.S_ITS ---
PROCEDURE: XR HIP W PEL IF DONE RT 2V INDICATIONS: right hip pain, fall recent inf TECHNIQUE: AP pelvis with lateral view(s) of the right hip(s). COMPARISON: [facility], , XR HIP W PEL IF DONE RT 2V, 12/07/2022, 19:07. FINDINGS: Bones: There is a posterior dislocation of the right hip prosthesis. No acute fracture visualized. Soft tissues: The visualized bowel gas pattern is normal. No suspicious soft tissue calcifications. IMPRESSION: Right posterior hip dislocation. Dictated by: Daisha Roy M.D. on 12/10/2022 at 8:23 Approved by: Daisha Roy M.D. on 12/10/2022 at 8:25
--- NOTE | 2022-12-10 09:18 | ED.FALL ---
HPI - Fall General Chief Complaint: Fall Stated Complaint: hip pain after fall Time Seen by Provider: 12/10/22 07:19 Source: patient and EMS Mode of arrival: EMS History of Present Illness HPI Narrative: This is a 87-year-old female with history right total hip arthroplasty on November 17 on aspirin, medication for hypertension and currently on ertapenem. Patient was doing well and then developed possible infection she was seen here on December 05 states several days and was discharged home with plan for IV antibiotics. Patient does have a PICC line in place she has a very small wound VAC she states they pulled the drain yesterday before she was discharged home and has only been putting out 2 or 3 cc. Patient states today she tripped over the wiring from her wound VAC and fell onto her right hip. She has quite a bit of pain but was improved with pain medication from EMS it is slowly returning. She denies numbness or tingling. She denies hitting her head, no neck or back pain, no chest pain or shortness of breath. No nausea or vomiting. No loss of bowel or bladder control. Patient states she does not think that she hurt anything else. She has been ambulating. She states she was supposed to meet with wound care for her IV antibiotics starting this morning. Patient needs her last oral intake was 1700 last night 12/09/2022 when she had fluids she has not had any solids since yesterday before 1700 Related Data Home Medications Medication Instructions Recorded Confirmed allopurinol 300 mg tablet 300 mg PO DAILY 11/10/22 12/05/22 atenolol 50 mg tablet 50 mg PO BID 11/10/22 12/05/22 hydrochlorothiazide 25 mg tablet 25 mg PO DAILY 11/10/22 12/05/22 verapamil 120 mg tablet 120 mg PO BID 11/10/22 12/05/22 Previous Rx's Medication Instructions Recorded acetaminophen 325 mg tablet 650 mg PO Q6HR #60 tabs 11/18/22 ibuprofen 400 mg tablet 400 mg PO Q6HR #60 tabs 11/18/22 oxycodone 5 mg tablet 5 mg PO Q3HR PRN Pain, Moderate 11/18/22 (4-6) #40 tabs aspirin 81 mg tablet,delayed 81 mg PO BID 6 weeks #84 tabs 12/09/22 release ertapenem 1 gram solution for 1 g IM Q24H 6 weeks #42 ea 12/09/22 injection (Invanz) Allergies Allergy/AdvReac Type Severity Reaction Status Date / Time No Known Drug Allergies Allergy Verified 11/17/22 10:26 Review of Systems Review of Systems ROS Unobtainable: All systems reviewed & are unremarkable except as noted in HPI and below Patient History Medical History Essential hypertension Gout HTN (hypertension) Osteoarthritis Surgical History History of right hip replacement History of total right knee replacement (2001) Hx of appendectomy Hx of tonsillectomy Family History Mother Old age Father Alcoholism Social History household members: none Smoking Status: Former smoker alcohol intake: current 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 HEAD: No evidence of trauma, no raccoon/Fry sign. NECK: Nontender, painless range of motion, trachea midline Negative Nexus criteria, there is no midline line tenderness, distracting injury, altered mental status, neuro deficit, recent EtOH. EYES: PERRLA, EOMI ENT: External inspection normal, trachea is midline, TM's are normal no hemotypanum, Nares are clear, no septal hematoma, no dental or oral injury, airway is normal and with normal occlusion, No bony tenderness RESP: Chest is nontender and has symmetric movement, no ecchymosis, breath sounds are normal no crackles, wheezes or rales CVS: Heart sounds are normal, no murmur noted, No JVD. ABG/GI: Nontender, soft, normal bowel sounds, no distention, no organomegaly, pelvic rock is negative NEURO: Oriented AOx3, neuro is grossly intact, sensation and motor is normal all 4 extremities moving, cranial nerves II through XII are intact, GCS is 15 PSYCH: Normal mood and affect SKIN: Intact, warm and dry, no crepitus and without decubitus BACK: No CVA tenderness, no vertebral tenderness, no step-off's, no crepitus EXT: Patient's right leg is shortened externally rotated, she does have a very small wound VAC on her right hip with approximately a 4 in x 1 in strip, there is no warmth erythema or active drainage, wound VAC appears to be operating appropriately there is a small additional bandage with very minimal serosanguineous drainage. Patient has sensation to light touch she is good plantar flexion dorsiflexion on the right, 2+ dorsalis pedis bilaterally. Patient does not have any other bony tenderness full range of motion of her other 3 extremities. +pulses all 4 extremities. Initial Vital Signs Initial Vital Signs: Vital Signs Temperature 97.6 F 12/10/22 07:22 Pulse Rate 71 12/10/22 07:22 Respiratory Rate 15 12/10/22 07:22 Blood Pressure 163/70 H 12/10/22 07:22 Pulse Oximetry 97 12/10/22 07:22 Oxygen Delivery Method 12/10/22 07:22 Scores GCS Marge coma scale eye opening: Spontaneous [place] coma scale verbal response: Orientated Marge coma scale motor response: Obey commands [place] coma scale total score: 15 Nexus Score for C-Spine Focal Neurologic deficit present: No Midline spinal tenderness present: No Altered level of conciousness present: No Intoxication present: No Distracting Injury Present: No Nexus Criteria for C-spine: 0 Course Orders Ordered: Acetaminophen (Acetaminophen 325 Mg Tablet) 650 mg PO Q6HR [facility] Last Admin: 12/10/22 17:34 Dose: 650 mg Documented By: BT Allopurinol (Allopurinol 100 Mg Tablet) 200 mg PO DAILY [facility] Aspirin (Aspirin Ec 81 Mg Tablet) 81 mg PO BID [facility] Atenolol (Atenolol 50 Mg Tablet) 50 mg PO BID [facility] Docusate Sodium (Docusate 100 Mg Capsule) 100 mg PO BID [facility] Ertapenem (Ertapenem 1 Gm Vial) 1 gm IM Q24H [facility] Last Admin: 12/10/22 14:11 Dose: 1 gm Documented By: BT Hydrochlorothiazide (Hydrochlorothiazide 25 Mg Tablet) 25 mg PO DAILY [facility] Ibuprofen (Ibuprofen 400 Mg Tablet) 400 mg PO Q6HR [facility] Last Admin: 12/10/22 17:34 Dose: 400 mg Documented By: BT Naloxone HCl (Naloxone 0.4 Mg/Ml Vial) 0.2 mg IV Q2MIN PRN PRN Reason: Opiate Reversal Ondansetron HCl (Ondansetron 4 Mg/2 Ml Inj) 4 mg IV Q4HR PRN PRN Reason: Nausea And Vomiting Ondansetron HCl (Ondansetron 4 Mg Odt) 4 mg PO Q4HR PRN PRN Reason: Nausea Oxycodone HCl (Oxycodone Ir 5 Mg Tablet) 5 mg PO Q3HR PRN PRN Reason: Pain, Moderate (4-6) Polyethylene Glycol (Polyethylene Glycol 3350 17 Gm Powd.Pack) 17 gm PO DAILY PRN PRN Reason: Constipation Verapamil HCl (Verapamil 120 Mg Tablet) 120 mg PO BID [facility] Discontinued Medications Lactated Ringer's (Lactated Ringers) 1,000 mls @ 100 mls/hr IV CONT [facility] Last Infusion: 12/10/22 13:22 Dose: 0 mls/hr Documented By: Admin: 12/10/22 11:22 Dose: 100 mls/hr Documented By: GAUTAM Ertapenem 1 gm/ Sodium (Chloride) 100 mls @ 200 mls/hr IV Q24H [facility] Last Admin: 12/10/22 13:51 Dose: Not Given Documented By: MASON Morphine Sulfate (Morphine 4 Mg/Ml Inj) 4 mg IV NOW ONE Stop: 12/10/22 09:25 Last Admin: 12/10/22 09:40 Dose: 4 mg Documented By: GAUTAM Ondansetron HCl (Ondansetron 4 Mg/2 Ml Inj) 4 mg IV Q6HR PRN PRN Reason: Nausea And Vomiting Last Admin: 12/10/22 09:41 Dose: 4 mg Documented By: GAUTAM Ondansetron HCl (Ondansetron 4 Mg/2 Ml Inj) 4 mg IV NOW PRN PRN Reason: Nausea And Vomiting Propofol (Propofol 200 Mg/20 Ml Vial) 85 mg 1 mg/kg (85 mg) IV NOW ONE Stop: 12/10/22 10:46 Last Admin: 12/10/22 11:22 Dose: Not Given Documented By: GAUTAM Consultations Consultation #1: Dr. Mccormick, orthopedic surgery: Discussed patient had her hip replaced on the 17 of November, developed subsequent infection was taken to the OR this , 3 days ago has overlying small wound VAC with active infections was receiving IV antibiotics and appears to have fallen and dislocated that hip. Dr. Mccormick states fine for us to attempt to reduce in the emergency department. There are no contraindications. He will update Dr. Kerr Time: 10:45 Consultation #2: Dr. Rachel Kerr, orthopedic surgery discussed with Dr. Kerr because of patient's recent medical history she checked with OR they have time to take her to the OR she feels this would be most appropriate, I agree as patient has had recent replacement infection subsequent complications. Time: 11:10 Vital Signs Vital signs: Vital Signs - 8 hr 12/10/22 07:22 12/10/22 10:00 Temperature 97.6 F Pulse Rate 71 73 Respiratory Rate 15 18 Blood Pressure 163/70 H 130/58 L Pulse Oximetry 97 96 Oxygen Delivery Method Room Air MDM - Fall Lab Data 12/10/22 08:50 12/10/22 08:50 Labs: Lab Results 12/10/22 12/10/22 12/10/22 Range/Units 08:50 08:50 08:50 WBC 12.4 H (4.5-11.0) X10^3/uL RBC 3.15 L (4.0-5.2) X10^6/uL Hgb 9.7 L (12.0-16.0) g/dL Hct 29.1 L (36-46) % MCV 92.2 (80-100) fL MCH 30.7 (26-34) PG MCHC 33.3 (30-36) % RDW 13.9 (11.6-14.8) % Plt Count 322 (150-400) X10^3/uL Neut % (Auto) 86.4 H (50-75) % Lymph % (Auto) 6.2 L (25-40) % Edwards % (Auto) 6.0 (3-14) % Eos % (Auto) 0.9 L (2-4) % Baso % (Auto) 0.5 (0-2) % Neut # (Auto) 92162 H (6888-7953) /uL Lymph # (Auto) 800 L (9090-3574) /uL Edwards # (Auto) 700 (0-900) /uL Eos # (Auto) 100 (0-450) /uL Baso # (Auto) 100 (0-100) /uL PT 14.3 H (10.1-12.7) SECONDS INR 1.2 (0.9-1.3) APTT 30 (26-36) SECONDS Sodium 138 (137-145) mmol/L Potassium 3.8 (3.4-5.1) mmol/L Chloride 103 (98-107) mmol/L Carbon Dioxide 25 (22-32) mmol/L BUN 12 (7-17) mg/dL Creatinine 0.74 (0.52-1.04) mg/dL Estimated GFR > 60 (>60) mL/min BUN/Creatinine Ratio 16.2 (6-22) Glucose 82 (80-110) mg/dL Calcium 8.5 (8.4-10.2) mg/dL Total Bilirubin 0.6 (0.2-1.3) mg/dL AST 42 H (14-36) IU/L ALT 25 (<35) IU/L Alkaline Phosphatase 109 (38-126) U/L Total Protein 5.8 L (6.3-8.2) g/dL Albumin 2.8 L (3.5-5.0) g/dL Globulin 3.0 (1.7-4.1) g/dL Albumin/Globulin Ratio 0.9 L (1.0-2.8) Lipase 72 (23-300) U/L SARS-CoV-2 (PCR) (Negative) 12/10/22 Range/Units 08:51 WBC (4.5-11.0) X10^3/uL RBC (4.0-5.2) X10^6/uL Hgb (12.0-16.0) g/dL Hct (36-46) % MCV (80-100) fL MCH (26-34) PG MCHC (30-36) % RDW (11.6-14.8) % Plt Count (150-400) X10^3/uL Neut % (Auto) (50-75) % Lymph % (Auto) (25-40) % Edwards % (Auto) (3-14) % Eos % (Auto) (2-4) % Baso % (Auto) (0-2) % Neut # (Auto) (6163-8909) /uL Lymph # (Auto) (9742-9830) /uL Edwards # (Auto) (0-900) /uL Eos # (Auto) (0-450) /uL Baso # (Auto) (0-100) /uL PT (10.1-12.7) SECONDS INR (0.9-1.3) APTT (26-36) SECONDS Sodium (137-145) mmol/L Potassium (3.4-5.1) mmol/L Chloride (98-107) mmol/L Carbon Dioxide (22-32) mmol/L BUN (7-17) mg/dL Creatinine (0.52-1.04) mg/dL Estimated GFR (>60) mL/min BUN/Creatinine Ratio (6-22) Glucose (80-110) mg/dL Calcium (8.4-10.2) mg/dL Total Bilirubin (0.2-1.3) mg/dL AST (14-36) IU/L ALT (<35) IU/L Alkaline Phosphatase (38-126) U/L Total Protein (6.3-8.2) g/dL Albumin (3.5-5.0) g/dL Globulin (1.7-4.1) g/dL Albumin/Globulin Ratio (1.0-2.8) Lipase (23-300) U/L SARS-CoV-2 (PCR) Negative (Negative) Imaging Data Extremity x-ray #1: Radiologist's Impression: Close Hip X-Ray (Signed) Daisha Roy - 12/10/22 Chest X-Ray (Signed) Dionisio Goel - 12/08/22 Hip X-Ray (Signed) Sheri Mcmillan - 12/07/22 Hip X-Ray (Signed) Sheri Mcmillan - 12/07/[address] (Signed) Sylvia Sosa - 12/05/22 Hip X-Ray (Signed) Nickolas Bonilla - 11/17/22 Hip X-Ray (Signed) Dionisio Goel - 11/17/22 Outside EKG 10/26/22 Launch?[address] [address] XRay Report Signed Patient: Mandy Wallace MR#: [id number] : 1935 Acct:[id number] Age/Sex: 87 / F Date of Service: 12/10/22 Loc: ED Accession Number: [id number] ?? Procedure: XR hip w pel if done RT 2V Ordering Provider: Maddie Burton D.O. PROCEDURE:? XR HIP W PEL IF DONE RT 2V ? INDICATIONS:? right hip pain, fall recent inf ? TECHNIQUE:? AP pelvis with lateral view(s) of the right hip(s).? ? COMPARISON:? [facility], CR, XR HIP W PEL IF DONE RT 2V, 12/07/2022, 19:07. ? FINDINGS:? ? Bones:? There is a posterior dislocation of the right hip prosthesis.? No acute fracture visualized. ? Soft tissues:? The visualized bowel gas pattern is normal.? No suspicious soft tissue calcifications.? ? ? IMPRESSION:? Right posterior hip dislocation. ? Dictated by: Daisha Roy M.D. on 12/10/2022 at 8:23 ? ? Approved by: Daisha Roy M.D. on 12/10/2022 at 8:25?? ECG Data Attestation: I personally reviewed and interpreted this ECG as follows: Interpretation: Sinus rhythm right bundle-branch. Rate of 75 AK 182 QRS of 138 QTC of 520. Patient prior from 12/05/2022 which appears similar. MDM Narrative Medical decision making narrative: This is an 87-year-old female with recent hip replacement, she developed subsequent infection had a fall today after she tripped on her wound VAC cord and fell on the hip and has dislocated it. She appears medically stable otherwise. Her wound actually looks quite well. Discussed with Orthopedic surgery as patient's surgery was only 23 days ago for her hip replacement there is an active infection for clarification if appropriate for me to attempt to reduce or if needs to be done by orthopedic surgery. Spoke with Dr. Mccormick, who felt patient was appropriate to attempt in the emergency department but he did speak with Dr. Rachel Kerr who called me back and states she would prefer to take to the OR there is a slot available now. Patient had been consented for the emergency department but she is very happy to let Dr. Kerr performed this. Patient has been otherwise medically cleared she has EKG, lab work from today which shows slight increase in her leukocytosis but no other major changes. Patient has been stable in the department pain has been relatively well controlled with morphine. Patient taken directly to the OR from the ED. Discharge Plan Departure Patient Disposition: Admitted to Surgery Clinical Impression: Hip dislocation, right, Open wound of right hip Admit Date/Time: 12/10/22 11:20 Admit Provider: Michelle Kerr
[2022-12-10 09:36] LABS: Add Manual Diff / Slide Review NO; Basophils Absolute Auto 100 /uL (0-100); Basophils Percent Auto 0.5 % (0-2); Eosinophils Absolute Auto 100 /uL (0-450); Eosinophils Percent Auto 0.9 % (2-4); Hematocrit 29.1 % (36-46); Hemoglobin 9.7 g/dL (12.0-16.0); Lymphocytes Absolute Auto 800 /uL (1100-4500); Lymphocytes Percent Auto 6.2 % (25-40); Mean Corpuscular HGB Conc 33.3 % (30-36); Mean Corpuscular Hemoglobin 30.7 PG (26-34); Mean Corpuscular Volume 92.2 fL (80-100); Monocytes Absolute Auto 700 /uL (0-900); Neutrophils Absolute Auto 10700 /uL (1500-7000); Neutrophils Percent Auto 86.4 % (50-75); Platelet Count 322 X10^3/uL (150-400); Red Blood Cell Count 3.15 X10^6/uL (4.0-5.2); Red Cell Distribution Width 13.9 % (11.6-14.8); White Blood Cell Count 12.4 X10^3/uL (4.5-11.0)
[2022-12-10 09:38] LABS: INR 1.2 (0.9-1.3); Prothrombin Time 14.3 SECONDS (10.1-12.7)
[2022-12-10 09:40] LABS: PTT Partial Thromboplastin Tim 30 SECONDS (26-36)
[2022-12-10] MEDS: MORPHINE 4 MG/ML INJ IV (09:40)
[2022-12-10] MEDS: ONDANSETRON 4 MG/2 ML INJ IV (09:41)
[2022-12-10 09:42] LABS: Alanine Aminotransferase 25 IU/L (<35); Albumin 2.8 g/dL (3.5-5.0); Albumin Globulin Ratio 0.9 (1.0-2.8); Alkaline Phosphatase 109 U/L (38-126); Aspartate Aminotransferase 42 IU/L (14-36); BUN Creatinine Ratio 16.2 (6-22); Bilirubin Total 0.6 mg/dL (0.2-1.3); Blood Urea Nitrogen 12 mg/dL (7-17); Calcium 8.5 mg/dL (8.4-10.2); Carbon Dioxide 25 mmol/L (22-32); Chloride 103 mmol/L (98-107); Estimated Glomerular Filt Rate > 60 mL/min (>60); Glucose 82 mg/dL (80-110); HEMOLYSIS < 15 (0-50); Lipase 72 U/L (23-300); Potassium 3.8 mmol/L (3.4-5.1); Sodium 138 mmol/L (137-145); Total Protein 5.8 g/dL (6.3-8.2)
[2022-12-10 09:55] LABS: COVID19 -Nasal RAPID Negative (Negative)
[2022-12-10] MEDS: LACTATED RINGERS 1,000 ML 100 ML IV (11:22)
--- NOTE | 2022-12-10 11:56 | P.OP.PRE_ITS ---
Pre-operative Note COVID-19 COVID-19 status: Negative Interval Note History & Physical reviewed/Exam performed by Physician: Yes Changes to H&P: Yes H&P completed within 30 days and has changed as indicated here:: Trey just went home yesterday from the hospital. She was at home she says that she was doing okay she was up getting up to the bathroom when she accidentally tripped over her small osmar tube and landed directly on her butt. She noted the acute onset of right hip pain. She was unable to put weight on her right hip. She called an ambulance and was transported [facility] for evaluation. X-rays showed evidence of a right hip dislocation. She notes that she was actually doing okay at home. She does have a friend who can come and stay with her some. She is not had chest pain shortness of breath lightheadedness or felt disoriented since she is been home. Her physical exam shows her osmar dressings in place. Has no active drainage on the osmar there was a small amount on her previous drain site. There was obvious foreshortening of the right leg she is able to fire toe flexors and extensors. Her calfs are soft.
--- NOTE | 2022-12-10 12:00 | PM.OP.1 ---
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 She underwent a revision with 1 stage polyethylene and head exchange. She is currently on IV antibiotics. She was discharged to home with home health and home IV antibiotics. She was at home when she accidentally tripped and landed on her right hip noted the onset of right hip pain and had x-rays which showed dislocated right total hip arthroplasty. She is brought to the operating room for closed reduction possible but unlikely open reduction. Surgeon: Michelle Kerr Click Yes if Unassisted: Yes Anesthesia Type: General Operative Notes Closure Type: primary Specimen(s): none sent Blood products transfused: none Procedure in detail: Patient is brought the operating room. She underwent induction of anesthesia. Time-out was performed. Once we had established adequate anesthesia her right hip was reduced with a combination of longitudinal traction and flexion. I did check the position of the dislocation radiographically was noted that her hip was shortened and she was posterior. Longitudinal traction and flexion with gentle internal and external rotation resulted in fairly easy reduction. Her pelvis was stabilized during the reduction maneuver. AP and lateral imaging confirmed concentric reduction. Leg lengths were noted to be equal. A dressing change was performed with a new osmar dressing. Her drain site was benign. Her wound appeared to be healing well. A new osmar was applied. Complications: none Post-operative Condition: stable Disposition: same day surgery Plan for aftercare: The patient will be maintained on a standard total hip replacement protocol with weight bearing as tolerated and anterior and posterior hip precautions. The patient will receive Aspirin and sequential compression devices for DVT prophylaxis. The patient will be discharged home when safe for the home environment. She will continue on IV antibiotics and follow-up with tn and infectious disease.
--- NOTE | 2022-12-10 12:02 | SUR.OPER ---
Supine on padded OR bed, head on pillow, arms secured on padded arm boards at <90 degrees abduction, legs uncrossed, safety belt at thigh, tape over blanket over lower legs.
--- NOTE | 2022-12-10 12:09 | SUR.HOLD ---
Patient to Pre-op from ER in stable condition via stretcher; patient GCS 15; patient c/o pain 8/10; denies any SOB or CP; denies nausea. Strong pedal pulse palpated to right lower extremity. PICC line noted to left upper arm.
[2022-12-10] MEDS: ERTAPENEM 1 GM VIAL IM (14:11)
--- NOTE | 2022-12-10 15:54 | PT-IP ANOTE ---
PT ning received. EMR reviewed. Checked on pt but pt refused PT. stated that she is just too tired and will not get out of the bed. provided pt with post op folders and for pt to review and pt agreed. will f/u tomorrow.
--- NOTE | 2022-12-10 16:49 | PM.PNPO.1 ---
Subjective Subjective Date Patient Seen: 12/10/22 Time Patient Seen: 16:50 Interval history: Patient is awake and alert sitting up in bed this afternoon. She is somewhat disoriented to time as she thinks her hip was put back into place yesterday. She states she is very tired but her pain is well-controlled. She did not get up with physical therapy as she told them she was too tired. Patient has 2 friends who are staying with her after discharge and helping her navigate this hospital stay. Patient states once she fell and returned to the hospital, her home health IV antibiotics were canceled completely. This will have to be reset as patient continues to need IV antibiotics after discharge. Exam Vital Signs (past 8 hours): - 12/10/22 10:00 12/10/22 11:51 12/10/22 12:53 Temperature 98.1 F 98 F Pulse Rate 73 78 74 Respiratory Rate 18 16 17 Blood Pressure 130/58 L 152/76 H 150/57 H Pulse Oximetry 96 98 94 Oxygen Delivery Method Room Air Room Air Oxygen Flow Rate 12/10/22 12:58 12/10/22 13:03 12/10/22 13:17 Temperature 98 F Pulse Rate 74 78 71 Respiratory Rate 18 12 11 L Blood Pressure 129/54 L 128/55 L 129/62 Pulse Oximetry 92 92 94 Oxygen Delivery Method Room Air Room Air Room Air Oxygen Flow Rate 12/10/22 13:52 12/10/22 14:45 12/10/22 15:40 Temperature 96.8 F L 97.1 F L Pulse Rate 76 85 82 Respiratory Rate 12 14 Blood Pressure 136/56 L 144/49 H 127/48 L Pulse Oximetry 97 97 95 Oxygen Delivery Method Oxygen Flow Rate 0 0 0 12/10/22 15:15 Temperature Pulse Rate 70 Respiratory Rate Blood Pressure 123/39 L Pulse Oximetry Oxygen Delivery Method Oxygen Flow Rate Oxygen Delivery Method Room Air Oxygen Flow Rate 0 Narrative Exam Narrative: Awake, alert, and oriented to person place and situation. Strength and sensation intact to bilateral lower extremities. Bilateral calves soft, compressible, nontender with no palpable cords or masses. New OPAL bandage clean, dry, and intact. Objective Labs 12/10/22 08:50 12/10/22 08:50 Labs: Laboratory Results - last 24 hr 12/10/22 12/10/22 12/10/22 08:50 08:50 08:50 WBC 12.4 H RBC 3.15 L Hgb 9.7 L Hct 29.1 L MCV 92.2 MCH 30.7 MCHC 33.3 RDW 13.9 Plt Count 322 Neut % (Auto) 86.4 H Lymph % (Auto) 6.2 L [place] % (Auto) 6.0 Eos % (Auto) 0.9 L Baso % (Auto) 0.5 Neut # (Auto) 01052 H Lymph # (Auto) 800 L [place] # (Auto) 700 Eos # (Auto) 100 Baso # (Auto) 100 PT 14.3 H INR 1.2 APTT 30 Sodium 138 Potassium 3.8 Chloride 103 Carbon Dioxide 25 BUN 12 Creatinine 0.74 Estimated GFR > 60 BUN/Creatinine Ratio 16.2 Glucose 82 Calcium 8.5 Total Bilirubin 0.6 AST 42 H ALT 25 Alkaline Phosphatase 109 Total Protein 5.8 L Albumin 2.8 L Globulin 3.0 Albumin/Globulin Ratio 0.9 L Lipase 72 SARS-CoV-2 (PCR) 12/10/22 08:51 WBC RBC Hgb Hct MCV MCH MCHC RDW Plt Count Neut % (Auto) Lymph % (Auto) [place] % (Auto) Eos % (Auto) Baso % (Auto) Neut # (Auto) Lymph # (Auto) [place] # (Auto) Eos # (Auto) Baso # (Auto) PT INR APTT Sodium Potassium Chloride Carbon Dioxide BUN Creatinine Estimated GFR BUN/Creatinine Ratio Glucose Calcium Total Bilirubin AST ALT Alkaline Phosphatase Total Protein Albumin Globulin Albumin/Globulin Ratio Lipase SARS-CoV-2 (PCR) Negative [facility] Medical History Essential hypertension Gout HTN (hypertension) Osteoarthritis Surgical History History of right hip replacement History of total right knee replacement (2001) Hx of appendectomy Hx of tonsillectomy Family History Mother Old age Father Alcoholism Social History household members: none Smoking Status: Former smoker alcohol intake: current 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 The patient will receive Aspirin and sequential compression devices for DVT prophylaxis. The patient will be discharged home when safe for the home environment. She will continue on IV antibiotics and follow-up with Dr. Kerr and infectious disease.
[2022-12-10] MEDS: IBUPROFEN 400 MG TABLET PO (17:34)
[2022-12-10] MEDS: ACETAMINOPHEN 325 MG TABLET 650 MG PO (17:34)
[2022-12-10] MEDS: atenoloL 50 MG TABLET PO (20:08)
[2022-12-10] MEDS: DOCUSATE 100 MG CAPSULE PO (20:08)
[2022-12-10] MEDS: VERAPAMIL 120 MG TABLET PO (20:08)
[2022-12-10] MEDS: ASPIRIN EC 81 MG TABLET PO (20:08)
[2022-12-11] MEDS: IBUPROFEN 400 MG TABLET PO ×3 (05:15→17:44)
[2022-12-11] MEDS: ACETAMINOPHEN 325 MG TABLET 650 MG PO ×3 (05:15→17:44)
[2022-12-11 05:53] LABS: Hemoglobin 9.5 g/dL (12.0-16.0)
[2022-12-11 07:57] VITALS: BP 126/50; PULSE 60; RESP 16; TEMP 35.8; O2SAT 97
[2022-12-11] MEDS: allopurinoL 100 MG TABLET 200 MG PO (08:41)
[2022-12-11] MEDS: ASPIRIN EC 81 MG TABLET PO ×2 (08:41→20:55)
[2022-12-11] MEDS: OXYCODONE IR 5 MG TABLET PO (08:41)
--- NOTE | 2022-12-11 08:47 | CM.DANOTE ---
Addendum entered by Augusta Raman R.N. 12/11/22 14:19: Spoke to Zahida at [facility]. Gave her additional information, for she wanted to know if patient was vaccinated for COVID. She also wanted patient's height and weight. Spoke to patient, she did not have a copy of her vaccine card, but stated that she had all 4 vaccines for COVID, her 4th was this last fall, and she had her flu shot as well. Updated Zahida at [facility], let her know that this [place] [employer] can't get access [facility], but can fax them over Tuesday. She has confirmed acceptance for patient, she has a bed for Tuesday, just pending auth. Addendum entered by Augusta Raman R.N. 12/11/22 13:39: Had to get social security number from patient, per Zahida at [facility]'s request. Her social security number is: [id number]. Also, confirmed with Zahida that her IV Ertepenum is for 6 weeks. Addendum entered by Augusta Raman R.N. 12/11/22 12:57: Faxed [facility], [facility], and [facility] over the P. T. notes from today. Addendum entered by Augusta Raman R.N. 12/11/22 11:20: Patient had attempted to work with P.T, did not pass. bridgette Waller is aware. At this time, patient is consenting to go to jail facility. Called her friend, Michelle Osborne, and let her know that patient is not discharging today. Called [facility], for they were going to come here today and do the teaching, and let them know that she is not discharging today. Brought in ipad to go over Medicare.gov web sites. Patient does not want to go to [facility], she knew people that were there that did not have a good experience. Went over some of the facilities in [facility], [facility] and [facility]. She is willing to go to one of these facilities, prefers the one with 4 stars, [facility], as first choice. Called over at [facility], spoke to Zahida in admissions today. She stated to send over the referral. Reminded her that patient has [facility], and that she will need to submit auth. She stated, I know that now, I learned the hard way. They will not be able to get the auth over the weekend, but can still submit. Spoke to Vannesa at [facility]. She has beds, but uncertain if they can accept due to the amount of patients that have IV meds, but willing to review. Left a message with Sara at [facility]. Faxed over referrals to all places, P.T. note is not yet done, but faxed over face sheet, operative report, med list, prog notes, as well as ER visit. On the fax cover sheet, let facilities know that patient does not have a wound vac, has a OPAL dressing which she would discharge with. Patient most likely will not be able to discharge until Tuesday, due to the insurance auth, unless she improves with P.T. tomorrow. Will follow closely, and will fax P.T. notes to facility when completed. Addendum entered by Augusta Raman R.N. 12/11/22 09:36: Spoke to ortho PAC, Christin, who will go ahead and place discharge orders. Called [facility] again, spoke to Klaudia, pharmacist, and they are working on setting up appointment with Miguel for teaching. She will get her IV dose of ABO today before leaving. Christin indicated that she can have the antibiotic earlier if needed. Updated nurse. Patient is eager to go home today. Contacted her friend, Michelle Osborne, and will be leaving her home now to pick patient up. Original Note: DCP: Case received, EMR reviewed and met with patient. Introduced self and role. Was able to obtain information regarding her baseline activity level, and current living situation. DCP assessment completed with information currently available. Patient is an 87 year old female who admitted yesterday morning to the care of the orthopedic team. PCP: Dr. Castellanos. Payer: confirmed: [facility]. Patient came to the hospital via ambulance secondary to a ground level fall. Patient had just been here the day before, went home with a wound vac, was supposed to have home IV therapy with [facility]. Patient had tripped over the cord of her wound vac and landed on her affected hip. She ended up with a hip dislocation. Patient has PICC line, for she was supposed to have her q 24 hour ABO. Patient had her surgery last pm. Dr. Kerr had indicted, she did not want to send her home unless she had someone staying with her, patient had been alone when the fall occurred. She is supposed to work with P.T. Met with patient. Asked her if she would be willing to consider skilled, she adamantly said no, no home health as well. Confirmed that she does reside in [place] alone, friends coming in at times. Asked her if this [employer] could call her friend, Miguel Renteria, she gave permission. Called Miguel, asked him if he could stay with her, and he indicated that he had to work, could not stay with her until . Patient had asked this [place] [employer] to call other friends. Called her friend, Claire, who could not stay with her. Asked Miguel if he could call some of her other friends, or [employer], and gave him caregiving agency numbers. Miguel was the one who was supposed to have the teaching for her IV ABO. Miguel called back and stated that he found a friend, Michelle Osborne. Her number is: [phone]. Her cell number is: [phone]. Patient gave permission to contact her. Michelle did leave a message, she can stay with patient, and is able to pick her up when ready. Her friend [place] [facility] [place]. Spoke to Michelle this am, let her know that as soon as this patient is discharged, will call her. Called [facility], and spoke with pharmacist, Klaudia. Stated that her charge nurse is working on getting a time set up for teaching, as it was cancelled. She will call back to see when they can see Miguel for teaching. Patient could get her IV dose here of her Mirapenum, if needed, for it is every 24 hours. P: DCP to continue to follow. Plan is home, possibly today if arrangements can be made for her IV ABO teaching, will update ortho, and will update her friend, Michelle, as well. Augusta Raman RN/Director Of Residence Life Discharge Planning/Care Management CM Discharge Assessment Start: 12/11/22 08:43 Freq: Status: Active Protocol: Document 12/11/22 08:43 AL (Rec: 12/11/22 08:46 [id number]) Discharge Planning Assessment Assigned Warehouse Distribution Associate Augusta Raman RN/Director Of Residence Life Advance Directives? Yes Advance Directives on File No History Provided By Patient,Medical Record Has Patient been admitted in last 30 Yes days? Prior Living Arrangements House Household Members none Type of transporation used prior to Relies on Others admit Independent with ADL's Yes Is patient alert and oriented? Yes Needs Assistance With Meal Prep,Home Chores / Shopping Caregiver for Another No Community Services used prior to IV Therapy admission: Comment [facility] was initiated, but home teaching visit has not yet occurred, she ended up back in the hospital. DME Already Rented / Owned FWW / Walker,Other Comment Has wound vac as well. Comment Patient declines jail or home health. Comment Patient resides alone, had a recent fall, but does have a friend that can stay with her. Discharge Plan Home Transportation Arrangement Friend VS facility transport Referrals Initiated Other Additional Comment [facility] has had referral from recent admit, have a call out to see when teaching can be done for home Iv abo. If patient plan is SNF: Has PASSR been No completed? Whiteboard Updated in Patient Room with Yes name and ext. # of Warehouse Distribution Associate Review Status In Process Next Review Type Continued Stay Review
[2022-12-11 08:49] VITALS: BP 110/43; PULSE 63
--- NOTE | 2022-12-11 09:00 | PT.IIE ---
Surgery Performed Operation Date: 12/10/22 12:45 Actual Procedures p Closed Reduction Dislocated Hip Right - Michelle Kerr MD Surgical History (Last Reviewed 12/11/22 @ 10:05 by Pao Penny PA-C) History of right hip replacement History of total right knee replacement (2001) Hx of appendectomy Hx of tonsillectomy Medical History (Last Reviewed 12/11/22 @ 10:05 by Pao Penny PA-C) Essential hypertension Gout HTN (hypertension) Osteoarthritis Physical Therapy Inpatient Evaluation/Re-Eval M1 PT/OT-IP Prior Functional Status Start: 12/11/22 12:04 Freq: NEEDED Status: Active Protocol: Document 12/11/22 09:00 AB (Rec: 12/11/22 12:20 AB [id number]) Medical Review Prior Functional Status Medical History Reviewed Yes Communication able to make needs known Mobility and Gait pt modified independent with mobility using FWW since hip surgery. Prior Functional Level (Other details) pt s/p R NYLA anterior approach 11/17/22 and pt d/c'd home. Pt came back to the hospital 12/05/22 due to hip infection and underwent revision and I& D and went home. pt then had a fall at home and admitted back to the hospital due dislocation of her R hip and underwent closed reduction . Social History Household Members none Living Arrangements House Number of Floors (Floors) One Floor Number of Stairs To Enter/Railing? 1 step to enter Home Environment High Toilet,Tub/Shower Home Equipment Front Wheel Walker,Four Wheel Walker,Bedside Commode,Shower Seat without Backrest,Grab Bars In Shower Additional Social History Comment pt stated that her friend will stay with her for 3 days M2 PT-IP Current Condition Start: 12/11/22 12:04 Freq: NEEDED Status: Active Protocol: Document 12/11/22 09:00 AB (Rec: 12/11/22 12:20 AB [email or web address]) Physical Therapy Current Condition Current Condition Evaluation Date 12/11/22 Treatment Diagnosis R hip dislocation s/p closed reduction; difficulty in walking Onset Date 12/10/22 M3 PT-IP Subjective Start: 12/11/22 12:04 Freq: NEEDED Status: Active Protocol: Document 12/11/22 09:00 AB (Rec: 12/11/22 12:20 [id number]) Subjective Physical Therapy Visit Type Type Initial Evaluation Visit Start Time 09:00 Visit Stop Time 09:56 Total Visit Minutes 56 Number of CLINICAL RESEARCH ASSOCIATE Visits 0 Physical Therapy Visit Comments Patient Comments agreeable to do PT Therapy Pain Assessment Pain When Pain Assessed During Mobility Pain Present Pain Present Pain Reported Location Right Hip Intensity 8 Scale Used Numeric (0 - 10) Pain Management Techniques Distraction,Modification of Treatment,Re-positioning, Timing of Activity with Medications M4 PT-IP Mobility and Gait Start: 12/11/22 12:04 Freq: NEEDED Status: Active Protocol: Document 12/11/22 09:00 AB (Rec: 12/11/22 12:20 [id number]) PT-Bed Mobility Assessment Supine to Sit Supine to Sit Maximum Assistance Sit to Supine Sit to Supine Maximum Assistance PT-Transfer Assessment Sit to and From Stand Sit to and from Stand Maximum Assistance,Use of Upper Extremities Equipment Transfer Assistive Device Gait Belt,Front Wheeled Walker Orthotic/Prosthetic Devices or Brace: No Comments Mobility Comments per ortho MD order: anterior and posterior hip precautions. pt educated on her R hip precautions. pt requires cues to recall. completed supine to sit max A and max cues. able to sit on EOB SBA. completed sit to stand max A and cues and with posterior LOB in standing using FWW requiring max A. pt sat back on EOB. educated on sit to stand techniques and completed max A and max cues. pt stated that R hip is very painful and stated that she cannot walk and does not want to transfer to the chair. Pt requested to go back to bed. completed sit to supine max A and max cues. positioned pt in bed. call light and table placed within reach. talked to pt regarding current level of assistance and if pt wants to go home, caregiver training has to be conducted but at this time PT's d/c recommendation is SNF rehab. pt initially refusing both caregiver training and SNF rehab. educated pt regarding safety going home and inability to move independently at this time. pt then agreed to go to SNF. informed nurse, PA and top case assembler. Gait Assessment Comments Gait Comments unable at this time PT-Balance Assessment Sitting Balance and Reactions Static Sitting Balance Ability Good Dynamic Sitting Balance Ability Fair Standing Balance and Reactions Static Standing Balance Ability Poor Dynamic Standing Balance Ability Poor Device Used FWW M5 PT-IP Objective Assessments Start: 12/11/22 12:04 Freq: NEEDED Status: Active Protocol: Document 12/11/22 09:00 AB (Rec: 12/11/22 12:20 AB [id number]) Orientation Orientation/Cognition Level of Alertness Alert Orientation Name,Place,Situation Language Function Ability No Deficits Noted Safety Awareness Decreased Safety Awareness Memory Description Short Term Impaired Gross Range of Motion Lower Extremity ROM Assessment Within Functional Limits Strength Lower Extremity Strength Assessment Right Impaired Hip 3-/5 Knee 3+/5 Sensation Assessment Sensation Gross Sensation WNL Muscle Tone Muscle Tone WNL Yes M6 PT-IP Treatment Start: 12/11/22 12:04 Freq: NEEDED Status: Active Protocol: Document 12/11/22 09:00 AB (Rec: 12/11/22 12:20 AB [id number]) Physical Therapy Treatment Education Education Provided Precautions,Weight Bearing Status,Post-Op Packet,Safety M7 PT-IP Assessment and Plan Start: 12/11/22 12:04 Freq: NEEDED Status: Active Protocol: Document 12/11/22 09:00 AB (Rec: 12/11/22 12:20 AB [id number]) PT Summary Assessment and Plan Potential Rehabilitation Potential Fair Status of Condition at Evaluation Evolving Summary Impairments Pain,ROM,Strength,Balance, Coordination,Sensation,Tone, Cognition,Bed Mobility, Transfers,Gait,Activity Tolerance Assessment Summary pt requiring max A for sit to stand using FWW for support but with c/o increase hip pain with mobility and unable to transfer or ambulate this morning. pt will require SNF rehab to improve strength and function. Goals Bed Mobility Goal Minimal Assistance Transfer Goal Minimal Assistance,Front Wheeled Walker Gait Goal Minimal Assistance,Front Wheel Walker Gait Distance 50 Other Goals improve bed mobility, transfers and ambulation using FWW 150 ft SBA up/down 1 step using FWW SBA Days to Meet Goals 10 Frequency of Treatment Frequency Of Treatment Twice a Day Treatment Plan Physical Therapy Treatment Plan Bed Mobility Training,Transfer Training,Gait Training, Therapeutic Exercise,Balance Retraining,Post Op Education, Discharge Planning,Hot or Cold Pack,Neuromuscular Re-ed, Coordination Retraining,Manual Therapy Precautions Posterior Hip Precautions No Hip Flexion > 90 degrees,No Hip Internal Rotation,No Hip Adduction Anterior Hip Precautions No Hip Extension,No Hip External Rotation Weight Bearing Status Weight Bearing Status Weight Bear as Tolerated Allowed Weight Bearing Amount (enter % RLE WBAT or #) (%) Recommendations To Nursing Amount of Assist Needed 1 Person Assist Discharge Recommendations PT Discharge Recommendations SNF Rehab Transportation Needs at Discharge Wheelchair/Cabulance
--- NOTE | 2022-12-11 09:24 | P.DS_ITS ---
History of Present Illness History of Present Illness Date Patient Seen: 12/11/22 Time Patient Seen: 09:25 Chief complaint: Dislocation of right total hip arthroplasty Narrative: Patient is sitting up at the edge of the bed with physical therapy. She states she is doing fine and had a good night sleep though she still feels very weak today. She is concerned that she will not be strong enough to return home even with help from friends who are staying with her for the next 3 days. Physical therapist also voices concern over patient's balance and strength. Patient is considering going to rehab to continue physical therapy and receive IV antibiotics until she is safe to return home independently. Discharge Providers Provider Date of admission: 12/10/22 11:20 Discharge Date: 12/11/22 Primary care physician: NAKITA Cole Consults: 12/10/22 13:30 Consult to Discharge Planning Routine Comment: check home d/c plan Consult to Physical Therapy Evaluate & Treat Comment: Physician Instructions: post op NYLA protocol Discharge provider: Pao Penny PA-C Summary Hospital Course Discharge Diagnosis: Closed reduction of right total hip arthroplasty dislocation Hospital Course: Operative Date/Time/Diagnoses Date of procedure: 12/10/22 Time of procedure: 12:20 Pre-op diagnosis: Right hip dislocation after right total hip arthroplasty Post-op diagnosis: same Procedure & Clinicians Procedure: Closed reduction right hip Same procedure as scheduled: Yes Indications: This is an unfortunate 87-year-old female has a history of a right total hip arthroplasty and had wound healing problems he was 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 She underwent a revision with 1 stage polyethylene and head exchange.? She is currently on IV antibiotics.? She was discharged to home with home health and home IV antibiotics.? She was at home when she accidentally tripped and landed on her right hip noted the onset of right hip pain and had x-rays which showed dislocated right total hip arthroplasty.? She is brought to the operating room for closed reduction possible but unlikely open reduction. Surgeon: Michelle Kerr Click Yes if Unassisted: Yes Anesthesia Type: General Operative Notes Closure Type: primary Specimen(s): none sent Blood products transfused: none Procedure in detail: Patient is brought the operating room.? She underwent induction of anesthesia.? Time-out was performed.? Once we had established adequate anesthesia her right hip was reduced with a combination of longitudinal traction and flexion.? I did check the position of the dislocation radiographically was noted that her hip was shortened and she was posterior.? Longitudinal traction and flexion with gentle internal and external rotation resulted in fairly easy reduction.? Her pelvis was stabilized during the reduction maneuver.? AP and lateral imaging confirmed concentric reduction.? Leg lengths were noted to be equal.? A dressing change was performed with a new opal dressing.? Her drain site was benign.? Her wound appeared to be healing well.? A new opal was applied. Complications: none Post-operative Condition: stable Disposition: same day surgery Plan for aftercare: The patient will be maintained on a standard total hip replacement protocol with weight bearing as tolerated and anterior and posterior hip precautions. The patient will receive Aspirin and sequential compression devices for DVT prophylaxis. The patient will be discharged home when safe for the home environment.? She will continue on IV antibiotics and follow-up with me and infectious disease. Exam Vital Signs (past 8 hours): - 12/11/22 07:57 12/11/22 08:49 Temperature 96.5 F L Pulse Rate 60 63 Respiratory Rate 16 Blood Pressure 126/50 L 110/43 L Pulse Oximetry 97 Oxygen Delivery Method Room Air Oxygen Flow Rate 0 Narrative Exam Narrative: Patient is awake, alert, and oriented sitting up on the edge of the bed with her walker in front of her. Strength 4/5 to right hip flexion. Strength and sensation otherwise intact to bilateral lower extremities. Bilateral calves soft, compressible, nontender with no palpable cords or masses. OPAL dressing applied yesterday clean, dry, and intact. Objective Labs 12/11/22 05:19 12/10/22 08:50 Labs: Laboratory Results - last 24 hr 12/10/22 12/10/22 12/10/22 08:50 08:50 08:50 WBC 12.4 H RBC 3.15 L Hgb 9.7 L Hct 29.1 L MCV 92.2 MCH 30.7 MCHC 33.3 RDW 13.9 Plt Count 322 Neut % (Auto) 86.4 H Lymph % (Auto) 6.2 L [place] % (Auto) 6.0 Eos % (Auto) 0.9 L Baso % (Auto) 0.5 Neut # (Auto) 56797 H Lymph # (Auto) 800 L [place] # (Auto) 700 Eos # (Auto) 100 Baso # (Auto) 100 PT 14.3 H INR 1.2 APTT 30 Sodium 138 Potassium 3.8 Chloride 103 Carbon Dioxide 25 BUN 12 Creatinine 0.74 Estimated GFR > 60 BUN/Creatinine Ratio 16.2 Glucose 82 Calcium 8.5 Total Bilirubin 0.6 AST 42 H ALT 25 Alkaline Phosphatase 109 Total Protein 5.8 L Albumin 2.8 L Globulin 3.0 Albumin/Globulin Ratio 0.9 L Lipase 72 SARS-CoV-2 (PCR) 12/10/22 12/11/22 08:51 05:19 WBC RBC Hgb 9.5 L Hct 28.0 L MCV MCH MCHC RDW Plt Count Neut % (Auto) Lymph % (Auto) [place] % (Auto) Eos % (Auto) Baso % (Auto) Neut # (Auto) Lymph # (Auto) [place] # (Auto) Eos # (Auto) Baso # (Auto) PT INR APTT Sodium Potassium Chloride Carbon Dioxide BUN Creatinine Estimated GFR BUN/Creatinine Ratio Glucose Calcium Total Bilirubin AST ALT Alkaline Phosphatase Total Protein Albumin Globulin Albumin/Globulin Ratio Lipase SARS-CoV-2 (PCR) Negative [facility] Medical History Essential hypertension Gout HTN (hypertension) Osteoarthritis Surgical History History of right hip replacement History of total right knee replacement (2001) Hx of appendectomy Hx of tonsillectomy Family History Mother Old age Father Alcoholism Social History household members: none Smoking Status: Former smoker alcohol intake: current 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 The patient will continue aspirin 81 mg b.i.d. for DVT prophylaxis, has received instructions for multimodal pain regimen at previous discharge and will continue with ibuprofen, acetaminophen, and oxycodone as needed. Discharge to SNF as recommended by Physical therapy, care management to reestablish care with home health for home IV antibiotics once safe to return home.? She will continue on IV antibiotics, next dose at hospital today 12/11/2022 before discharge, following doses at [facility], then home IV antibiotics by home health. Follow-up with Dr. Kerr and infectious disease. Discharge Plan Discharge Plan Patient Disposition: SNF Other facility: Accepting facility Provider Discharge Comment: d/c to SNF after PT eval, pic line dressing change, and 1 gm ertapenem, d/c nurse discharge planner ning I certify the postop hospital [facility] care is medically necessary on a continuing basis for any conditions for which he/ she received care during this hospitalization.: Yes The receiving facility has agreed to accept transfer and provide medical treatment.: Yes Discharge orders & Medications Prescriptions: Continued verapamil 120 mg Tablet 120 mg PO BID allopurinol 300 mg Tablet 300 mg PO DAILY hydrochlorothiazide 25 mg Tablet 25 mg PO DAILY atenolol 50 mg Tablet 50 mg PO BID acetaminophen 325 mg Tablet 650 mg PO Q6HR Qty: 60 0RF ibuprofen 400 mg Tablet 400 mg PO Q6HR Qty: 60 0RF oxycodone 5 mg Tablet 5 mg PO Q3HR PRN (Reason: Pain, Moderate (4-6)) Qty: 40 0RF aspirin 81 mg Tablet,Delayed Release (Dr/Ec) 81 mg PO BID 42 Days Qty: 84 0RF ertapenem [Invanz] 1 gram recon soln 1 g IM Q24H 42 Days Qty: 42 0RF Rx Instructions: final dose on January 19, 2023 Follow up/Referrals: Jackie Castellanos ARNP [Primary Care Provider] - Michelle Kerr MD [Physician] - (Follow-up as scheduled) Diet/Activity/Treatments Diet: Diet as Tolerated Activity: FALL PRECAUTIONS. walk as tolerated. avoid high flexion, ER, and hyp erextension (anterior and posterior hip precautions) Cold/Heat Therapy: Ice right hip multiple times a day as needed Skin/Wound/Dressing Care Skin care: pic line instructions Report to your healthcare provider any signs of infection, such as:: chills, fever, night sweats, increased pain, unusual drainage and unusual redness Dressing: Leave OPAL dressing on, make sure battery pack into are secured from falling when up and walking Other wound treatment: Daily IV antibiotics [facility] Reason for rehabilitation: Post-operative therapy Rehab type: Physical therapy Visit Report/Discharge Packet Instructions: DI for Prescription Opioid Use Stand Alone Forms: Patient Portal/API, Stroke Signs & Symptoms, Surgery Dis charge Discharge Data Primary Care Provider: Jackie Castellanos Attending Provider: Michelle Kerr
--- NOTE | 2022-12-11 10:05 | P.PN_ITS ---
Subjective Subjective Date Patient Seen: 12/11/22 Time Patient Seen: 08:30 Interval history: Patient is sitting up at the edge of the bed with physical therapy. She states she is doing fine and had a good night sleep though she still feels very weak today. She is concerned that she will not be strong enough to return home even with help from friends who are staying with her for the next 3 days. Physical therapist also voices concern over patient's balance and strength. Patient is considering going to rehab to continue physical therapy and receive IV antib iotics until she is safe to return home independently. Exam Vital Signs (past 8 hours): - 12/11/22 07:57 12/11/22 08:49 Temperature 96.5 F L Pulse Rate 60 63 Respiratory Rate 16 Blood Pressure 126/50 L 110/43 L Pulse Oximetry 97 Oxygen Delivery Method Room Air Oxygen Flow Rate 0 Narrative Exam Narrative: Patient is awake, alert, and oriented sitting up on the edge of the bed with her walker in front of her. Strength 4/5 to right hip flexion. Strength and sensation otherwise intact to bilateral lower extremities. Bilateral calves soft, compressible, nontender with no palpable cords or masses. OPAL dressing applied yesterday clean, dry, and intact. 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 She continues on IV antibiotics for right total hip infection and will continue these once discharged to halfway facility and thereafter at home with home health. She will continue rehabilitation for right total hip replacement including anterior and posterior hip precautions. New opal dressing placed yesterday she would stay intact until 1st postoperative visit, battery will run out after 7 days and may be disconnected the the dressing should stay intact. Continue multimodal pain regimen and icing as needed. Patient has 2 friends, Maira and Miguel, that are available to assist her and are her points of contact outside the hospital. Plan for discharge to halfway facility tomorrow.
[2022-12-11] MEDS: ERTAPENEM 1 GM in SODIUM CHLORIDE 0.9% 100 ML IV (10:09)
[2022-12-11 13:23] VITALS: BP 98/36; PULSE 74; RESP 16; TEMP 35.9; O2SAT 94
--- NOTE | 2022-12-11 13:25 | PT-IP ANOTE ---
Checked on pt for pm PT session but pt refused. pt stated that it is just too much effort to get out of the bed. educated pt on importance of moving to improve and stated that she understand but she does not have the energy to move.
--- NOTE | 2022-12-11 16:32 | PC.NURSE ---
Addendum entered by Renita Sullivan R.N. 12/11/22 18:18: PICC dressing changed at 1800 Original Note: patient refused to turn, offered it multiple times. she said she moves and repositions herself.
[2022-12-11 18:08] VITALS: BP 127/53; PULSE 72; RESP 16; TEMP 35.1; O2SAT 92
[2022-12-12 00:03] VITALS: BP 107/54; PULSE 67; RESP 20; TEMP 35.8; O2SAT 97
[2022-12-12] MEDS: ACETAMINOPHEN 325 MG TABLET 650 MG PO ×4 (05:06→23:49)
[2022-12-12] MEDS: IBUPROFEN 400 MG TABLET PO ×4 (05:06→23:49)
[2022-12-12 05:51] VITALS: BP 135/66; PULSE 77; RESP 18; TEMP 36; O2SAT 96
[2022-12-12 08:35] VITALS: BP 138/68; PULSE 79
[2022-12-12] MEDS: hydroCHLOROthiazide 25 MG TABLET PO (08:52)
[2022-12-12] MEDS: VERAPAMIL 120 MG TABLET PO ×2 (08:52→20:33)
[2022-12-12] MEDS: allopurinoL 100 MG TABLET 200 MG PO (08:52)
[2022-12-12] MEDS: ASPIRIN EC 81 MG TABLET PO ×2 (08:52→20:33)
[2022-12-12] MEDS: atenoloL 50 MG TABLET PO ×2 (08:52→20:33)
--- NOTE | 2022-12-12 10:43 | PT.IPTN ---
Surgery Performed Operation Date: 12/10/22 12:45 Actual Procedures p Closed Reduction Dislocated Hip Right - Michelle Pushpa Kerr MD Physical Therapy Treatment Note M2 PT-IP Current Condition Start: 12/11/22 12:04 Freq: NEEDED Status: Active Protocol: Document 12/11/22 09:00 AB (Rec: 12/11/22 12:20 AB [id number]) Physical Therapy Current Condition Current Condition Evaluation Date 12/11/22 Treatment Diagnosis R hip dislocation s/p closed reduction; difficulty in walking Onset Date 12/10/22 M3 PT-IP Subjective Start: 12/11/22 12:04 Freq: NEEDED Status: Active Protocol: Document 12/12/22 10:43 AW (Rec: 12/12/22 12:06 AW [id number]) Subjective Physical Therapy Visit Type Type Treatment Note Visit Start Time 10:20 Visit Stop Time 10:43 Total Visit Minutes 23 Number of MIXER AND BLENDER Visits 0 Physical Therapy Visit Comments Patient Comments agreeable to do PT Therapy Pain Assessment Pain When Pain Assessed During Mobility Pain Present Pain Present Pain Reported Location Right Hip Intensity 8 Scale Used 2/10 at rest; 8/10 with WB Description Aching,Acute,Tender,With Movement Pain Management Techniques Distraction,Modification of Treatment,Re-positioning, Timing of Activity with Medications M4 PT-IP Mobility and Gait Start: 12/11/22 12:04 Freq: NEEDED Status: Active Protocol: Document 12/12/22 10:43 AW (Rec: 12/12/22 12:06 AW [id number]) PT-Bed Mobility Assessment Supine to Sit Supine to Sit Moderate Assistance,Head of Bed Elevated Scooting Scooting to Edge of Bed Moderate Assistance PT-Transfer Assessment Sit to and From Stand Sit to and from Stand Moderate Assistance,1 Person Assistance,Use of Upper Extremities Equipment Transfer Assistive Device Gait Belt,Front Wheeled Walker Orthotic/Prosthetic Devices or Brace: No Transfers Transfer Destination Chair Transfer Technique Stand Step Pivot Transfer Ability Level of Assist Moderate Assistance,Use of Upper Extremities Comments Mobility Comments Pt was lying in bed as PT arrived. Reviewed hip precautions with pt who did need cues to maintain during mobility. She needed mod A to sit up on the left side of the bed and to scoot forward without breaking precautions. She stood mod A and used FWW to steady herself. She was able to take small marching in place steps before attempting to walk forward with FWW. She initially agreed to try walking to the window and then to the chair but complained of 8/10 pain with WB ( increased from 2/10 at rest). Pt needed mod A to transfer to the chair with FWW. She then needed mod/max A to stand from the chair and max cues for precautions. Pt agreed to sit up on the chair and was left with call light in reach. Gait Assessment Gait Gait Assistance Required: Moderate Assistance,1 Person Assist Distance (Feet) 3 Able to Maintain Weight Bearing Status Yes During Gait Assistive Devices Assistive Device Gait Belt,Front Wheeled Walker Orthotic/Prosthetic Devices or Brace: No Gait Deviations General Gait Pattern Antalgic,Decreased Stride Length,Decreased Feet Clearance,Flexed Trunk,Step-to Gait Factors Limiting Gait Function Factors Limiting Gait Function Decreased Activity Tolerance, Decreased Strength,Pain,Poor Balance,Poor Safety Awareness Comments Gait Comments Steps taken during transfer only. PT-Balance Assessment Sitting Balance and Reactions Static Sitting Balance Ability Good Dynamic Sitting Balance Ability Good Standing Balance and Reactions Static Standing Balance Ability Poor Dynamic Standing Balance Ability Poor Device Used FWW M5 PT-IP Objective Assessments Start: 12/11/22 12:04 Freq: NEEDED Status: Active Protocol: Document 12/11/22 09:00 AB (Rec: 12/11/22 12:20 AB [id number]) Orientation Orientation/Cognition Level of Alertness Alert Orientation Name,Place,Situation Language Function Ability No Deficits Noted Safety Awareness Decreased Safety Awareness Memory Description Short Term Impaired Gross Range of Motion Lower Extremity ROM Assessment Within Functional Limits Strength Lower Extremity Strength Assessment Right Impaired Hip 3-/5 Knee 3+/5 Sensation Assessment Sensation Gross Sensation WNL Muscle Tone Muscle Tone WNL Yes M6 PT-IP Treatment Start: 12/11/22 12:04 Freq: NEEDED Status: Active Protocol: Document 12/12/22 10:43 AW (Rec: 12/12/22 12:06 AW [id number]) Physical Therapy Treatment Education Education Provided Precautions,Safety Other Treatments Other Treatment Performed Pt requires max cues at all times for hip precautions. M7 PT-IP Assessment and Plan Start: 12/11/22 12:04 Freq: NEEDED Status: Active Protocol: Document 12/12/22 10:43 AW (Rec: 12/12/22 12:06 AW [id number]) PT Summary Assessment and Plan Summary Impairments Pain,ROM,Strength,Balance, Coordination,Sensation,Tone, Cognition,Bed Mobility, Transfers,Gait,Activity Tolerance Progress Towards Goals Progressing Toward Goals,Slow Progress due to Pain,Slow Progress due to Activity Tolerance Assessment Summary Pt needs mod assist for bed mobility and transfer with FWW this date. She complains of 8 /10 pain with RLE weightbearing (2/10 at rest) which is limiting her standing and walking tolerance. She needs max cues consistently to maintain her hip precautions (anterior and posterior). Pt will require SNF rehab to improve her strength, mobility independence, and activity tolerance. Goals Bed Mobility Goal Minimal Assistance Transfer Goal Minimal Assistance,Front Wheeled Walker Gait Goal Minimal Assistance,Front Wheel Walker Gait Distance 50 Other Goals improve bed mobility, transfers and ambulation using FWW 150 ft SBA up/down 1 step using FWW SBA Days to Meet Goals 10 Frequency of Treatment Frequency Of Treatment Twice a Day Treatment Plan Physical Therapy Treatment Plan Bed Mobility Training,Transfer Training,Gait Training, Therapeutic Exercise,Balance Retraining,Post Op Education, Discharge Planning,Hot or Cold Pack,Neuromuscular Re-ed, Coordination Retraining,Manual Therapy Precautions Posterior Hip Precautions No Hip Flexion > 90 degrees,No Hip Internal Rotation,No Hip Adduction Anterior Hip Precautions No Hip Extension,No Hip External Rotation Weight Bearing Status Weight Bearing Status Weight Bear as Tolerated Allowed Weight Bearing Amount (enter % RLE WBAT or #) (%) Recommendations To Nursing Amount of Assist Needed 1 Person Assist Discharge Recommendations PT Discharge Recommendations SNF Rehab Transportation Needs at Discharge Wheelchair/Cabulance
--- NOTE | 2022-12-12 11:36 | CM.DPC ---
DCP Cont: Patient has not yet worked with P.T. Friend, Michelle, called this [employer], for patient was initially going to stay with her. Did let her friend know that this [employer] can't provide much information, due to privacy issues, patient did already give permission to speak to her friend. Let Michelle know that she will not need to come to the hospital to take patient to her home at this time. She can contact patient for additional information. At this time, Zahida at [facility] can accept once auth is received, can't get over the weekend. Back up facilities were faxed, [facility] was not sure she could accept, and received a voice mail message from Sara [facility] that they have no immediate beds, as they have 4 COVID cases in the facility. Patient has not yet worked with P.T. yet today, and will fax more notes over when completed, to [facility]. P: DCP to continue to follow. Plan is for [facility], as soon as auth is received. Will as CM assistant banquet manager, Josefa, if she can obtain vaccination information on state web site. Will add COVID swab as well. Augusta Raman RN/Site Safety Coordinator
--- NOTE | 2022-12-12 12:23 | P.PN_ITS ---
Subjective Subjective Date Patient Seen: 12/12/22 Time Patient Seen: 12:23 Interval history: Patient is doing well after reduction of her hip dislocation. Patient has good pain control. Has been up and moving with physical therapy. Still having quite a bit of weakness in his unable to ambulate on her own. Plan is to be [facility] to a [facility] tomorrow. Exam Vital Signs (past 8 hours): - 12/12/22 05:51 12/12/22 08:35 Temperature 96.8 F L Pulse Rate 77 79 Respiratory Rate 18 Blood Pressure 135/66 138/68 Pulse Oximetry 96 Oxygen Flow Rate 0 Oxygen Delivery Method Room Air Oxygen Flow Rate 0 Narrative Exam Narrative: Stable relocated hip. Incision from previous surgery healing well. No sign of any drainage. Positive dorsiflexion and plantar flexion. Palpable pedal pulses. Nontender to palpation to the posterior aspect of the calf. 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 Patient is also status post I and D of her right total hip due to an infection. Patient will be transferred to a [facility] tomorrow where she will continue to get IV antibiotics.
[2022-12-12 12:59] LABS: COVID19 -Nasal RAPID Negative (Negative)
[2022-12-12 18:00] VITALS: BP 140/68; PULSE 80; RESP 20; TEMP 36.7; O2SAT 96
[2022-12-12] MEDS: SODIUM CHLORIDE 0.9% FLUSH 10 ML IV (20:33)
--- NOTE | 2022-12-12 22:11 | PC.NURSE ---
Patient is alert and oriented although can be forgetful. Breath sounds CTA w/RA sat of 96%. HRR w/BP of 140/68. Denied nausea. BT present and is passing flatus; declined hs dose of Colace as states she had a BM yesterday. Denied dysuria, frequency or urgency with urination; was straight cathed on previous shift as had only voided 125cc and bladder scan was > 400ml. Is able to move herself in bed; reminded of posterior hip precautions. Gait not assessed at this time but previous RN reported patient is out of bed with walker and 1 assist. OPAL dressing to right hip is intact and functioning; noted 2 small areas of serous drainage. Hemovac site dressing is CDI. Denied pain at time of assessement but reports she has considerable pain when up walking with PT. Swelling of right LE noted but is non pitting. Declined use of SCD's so reminded to ankle wave. Fall risk score is high and bed alarm is activated.
[2022-12-12 23:17] VITALS: BP 112/48; PULSE 55; RESP 18; TEMP 35.6; O2SAT 93
[2022-12-13 05:22] VITALS: BP 127/46; PULSE 58; RESP 18; TEMP 35.9; O2SAT 95
[2022-12-13] MEDS: ACETAMINOPHEN 325 MG TABLET 650 MG PO ×2 (05:48→11:47)
[2022-12-13] MEDS: IBUPROFEN 400 MG TABLET PO ×2 (05:49→11:47)
[2022-12-13 08:22] VITALS: BP 110/43; PULSE 60
--- NOTE | 2022-12-13 08:28 | P.DS_ITS ---
History of Present Illness History of Present Illness Date Patient Seen: 12/13/22 Time Patient Seen: 08:43 Chief complaint: Dislocation of right total hip arthroplasty Narrative: Patient is sitting upright in bed this morning eating breakfast. She states she only has right hip pain when up and moving. She states she is worked with physical therapy and notes slight improvement in strength, but is looking forward to progressing to baseline. She understands that care management is working to place her in a [facility] facility and is looking forward to [facility] today if possible. Discharge Providers Provider Date of admission: 12/10/22 11:20 Discharge Date: 12/13/22 Primary care physician: NAKITA Cole Consults: 12/10/22 13:30 Consult to Discharge Planning Routine Comment: check home d/c plan Consult to Physical Therapy Evaluate & Treat Comment: Physician Instructions: post op [facility] protocol Discharge provider: Pao Penny PA-C Summary Hospital Course Discharge Diagnosis: Closed reduction of right total hip arthroplasty Hospital Course: Operative Date/Time/Diagnoses Date of procedure: 12/10/22 Time of procedure: 12:20 Pre-op diagnosis: Right hip dislocation after right total hip arthroplasty Post-op diagnosis: same Procedure & Clinicians Procedure: Closed reduction right hip Same procedure as scheduled: Yes Indications: This is an unfortunate 87-year-old female has a history of a right total hip arthroplasty and had wound healing problems he was 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 She underwent a revision with 1 stage polyethylene and head exchange.? She is currently on IV antibiotics.? She was discharged to home with home health and home IV antibiotics.? She was at home when she accidentally tripped and landed on her right hip noted the onset of right hip pain and had x-rays which showed dislocated right total hip arthroplasty.? She is brought to the operating room for closed reduction possible but unlikely open reduction. Surgeon: Michelle Kerr Click Yes if Unassisted: Yes Anesthesia Type: General Operative Notes Closure Type: primary Specimen(s): none sent Blood products transfused: none Procedure in detail: Patient is brought the operating room.? She underwent induction of anesthesia.? Time-out was performed.? Once we had established adequate anesthesia her right hip was reduced with a combination of longitudinal traction and flexion.? I did check the position of the dislocation radiographically was noted that her hip was shortened and she was posterior.? Longitudinal traction and flexion with gentle internal and external rotation resulted in fairly easy reduction.? Her pelvis was stabilized during the reduction maneuver.? AP and lateral imaging confirmed concentric reduction.? Leg lengths were noted to be equal.? A dressing change was performed with a new opal dressing.? Her drain site was benign.? Her wound appeared to be healing well.? A new opal was applied. Complications: none Post-operative Condition: stable Disposition: same day surgery Plan for aftercare: The patient will be maintained on a standard total hip replacement protocol with weight bearing as tolerated and anterior and posterior hip precautions. The patient will receive Aspirin and sequential compression devices for DVT prophylaxis. The patient will be discharged home when safe for the home environment.? She will continue on IV antibiotics and follow-up with me and infectious disease. Subsequent course showed patient is not safe to return home due to weakness and instability. She will discharge to [facility] to continue rehabilitation until she is safe to return home. She has 2 friends that are available to assist her as needed. Status at Discharge Cognitive/behavioral status at discharge: oriented Overall status at discharge: patient is progressing back to baseline Exam Vital Signs (past 8 hours): - 12/13/22 05:22 12/13/22 08:22 Temperature 96.7 F L Pulse Rate 58 L 60 Respiratory Rate 18 Blood Pressure 127/46 L 110/43 L Pulse Oximetry 95 Oxygen Flow Rate 0 Oxygen Delivery Method Room Air Oxygen Flow Rate 0 Narrative Exam Narrative: Awake, alert, and oriented. Patient is sitting upright in bed in no acute distress. Strength and sensation intact to bilateral lower extremities. Bilateral calves soft, compressible, nontender with no palpable cords or masses. Opal dressing intact with minimal yellow discharge centrally. Skin of bilateral lower extremities dry and flaky, no rashes. 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 The patient will continue aspirin 81 mg b.i.d. for DVT prophylaxis, has received instructions for multimodal pain regimen at previous discharge and will continue with ibuprofen, acetaminophen, and oxycodone as needed. She has continued working with physical therapy while in the hospital eating significant cues and assist. Discharge to SNF as recommended by Physical therapy, care management to reestablish care with home health for home IV antibiotics once safe to return home.? She will continue on IV antibiotics, next dose at hospital today 12/13/2022 before discharge, following doses at [facility], then home IV antibiotics by home health. Follow-up with Dinora Penny PA-C on 12/22/2022 and infectious disease. Discharge Plan Discharge Plan Patient Disposition: SNF Other facility: Accepting facility Provider Discharge Comment: d/c to SNF, pic line dressing change, and 1 gm ertapenem, d/c logistics planner ning Wells certify the postop hospital [facility] care is medically necessary on a continuing basis for any conditions for which he/ she received care during this hospitalization.: Yes The receiving facility has agreed to accept transfer and provide medical treatment.: Yes Discharge orders & Medications Prescriptions: Continued verapamil 120 mg Tablet 120 mg PO BID allopurinol 300 mg Tablet 300 mg PO DAILY hydrochlorothiazide 25 mg Tablet 25 mg PO DAILY atenolol 50 mg Tablet 50 mg PO BID acetaminophen 325 mg Tablet 650 mg PO Q6HR Qty: 60 0RF ibuprofen 400 mg Tablet 400 mg PO Q6HR Qty: 60 0RF oxycodone 5 mg Tablet 5 mg PO Q3HR PRN (Reason: Pain, Moderate (4-6)) Qty: 40 0RF aspirin 81 mg Tablet,Delayed Release (Dr/Ec) 81 mg PO BID 42 Days Qty: 84 0RF ertapenem [Invanz] 1 gram recon soln 1 g IM Q24H 42 Days Qty: 42 0RF Rx Instructions: final dose on January 19, 2023 Follow up/Referrals: Jackie Castellanos ARNP [Primary Care Provider] - Michelle Kerr MD [Physician] - (Follow-up as scheduled) Diet/Activity/Treatments Diet: Diet as Tolerated Activity: FALL PRECAUTIONS. walk as tolerated. avoid high flexion, ER, and hyperextension (anterior and posterior hip precautions) Cold/Heat Therapy: Ice right hip multiple times a day as needed Skin/Wound/Dressing Care Skin care: pic line instructions Report to your healthcare provider any signs of infection, such as:: chills, fever, night sweats, increased pain, unusual drainage and unusual redness Dressing: Leave OPAL dressing on, make sure battery pack into are secured from falling when up and walking! Other wound treatment: Daily IV antibiotics [facility] Reason for rehabilitation: Post-operative therapy Rehab type: Physical therapy Restrictions to mobility: Anterior and posterior hip precautions Visit Report/Discharge Packet Instructions: DI for Prescription Opioid Use Stand Alone Forms: Patient Portal/API, Stroke Signs & Symptoms, Surgery Discharge Discharge Data Primary Care Provider: Jackie Castellanos Attending Provider: Michelle Kerr
[2022-12-13] MEDS: OXYCODONE IR 5 MG TABLET PO (08:40)
[2022-12-13] MEDS: ASPIRIN EC 81 MG TABLET PO (08:40)
[2022-12-13] MEDS: allopurinoL 100 MG TABLET 200 MG PO (08:40)
[2022-12-13] MEDS: ERTAPENEM 1 GM in SODIUM CHLORIDE 0.9% 100 ML IV (08:40)
[2022-12-13] MEDS: SODIUM CHLORIDE 0.9% FLUSH 10 ML IV (08:41)
[2022-12-13 08:51] VITALS: PULSE 57; RESP 18; TEMP 35.8; O2SAT 94
--- NOTE | 2022-12-13 15:52 | PT.IPTN ---
Surgery Performed Operation Date: 12/10/22 12:45 Actual Procedures p Closed Reduction Dislocated Hip Right - Michelle Pushpa Kerr MD Physical Therapy Treatment Note M2 PT-IP Current Condition Start: 12/11/22 12:04 Freq: NEEDED Status: Discharge Protocol: Document 12/13/22 15:40 SP (Rec: 12/13/22 16:30 SP [id number]) Physical Therapy Current Condition Current Condition Evaluation Date 12/11/22 Treatment Diagnosis R hip dislocation s/p closed reduction; difficulty in walking Onset Date 12/10/22 M3 PT-IP Subjective Start: 12/11/22 12:04 Freq: NEEDED Status: Discharge Protocol: Document 12/13/22 15:40 SP (Rec: 12/13/22 16:30 SP [id number]) Subjective Physical Therapy Visit Type Type Treatment Note Visit Start Time 15:40 Visit Stop Time 15:52 Total Visit Minutes 12 Number of GALLEY HAND Visits 1 Physical Therapy Visit Comments Patient Comments agreeable to do PT Therapy Pain Assessment Pain When Pain Assessed During Mobility Pain Present Pain Present Pain Reported Location Right Hip Intensity 6 Scale Used Numeric (0 - 10) Description With Movement Pain Behaviors Facial Grimacing Pain Management Techniques Distraction,Modification of Treatment,Re-positioning, Timing of Activity with Medications M4 PT-IP Mobility and Gait Start: 12/11/22 12:04 Freq: NEEDED Status: Discharge Protocol: Document 12/13/22 15:40 SP (Rec: 12/13/22 16:30 SP [id number]) PT-Transfer Assessment Sit to and From Stand Sit to and from Stand Contact Guard Assistance, Minimal Assistance,1 Person Assistance,Use of Upper Extremities Equipment Transfer Assistive Device Gait Belt,Front Wheeled Walker Orthotic/Prosthetic Devices or Brace: No Transfers Transfer Destination Chair Transfer Technique pt ambulated w/ FWW Transfer Ability Level of Assist Contact Guard Assistance, Minimal Assistance,1 Person Assistance,Use of Upper Extremities Comments Mobility Comments Pt was in midst of SPT with STAFF ANESTHESIOLOGIST BSC>EOB, CGA w/ FWW. Pt agreeable to more practice with transfers and gait. STS and SPT bed>chair CGA/ Min A w / safety cues for pushing from bed/reaching back to sit. Gait 20 ft in room w/ FWW cues taller posturing over NATHANIEL, increase foot clearance, body closer between back legs of FWW. Noted improvement in stability, reports tension/ pain anterolateral R thigh during upright mobility. Mod cues for RLE positioning to allow maintaining precautions. Pt was up in chair with call light, stated transportation is coming to bring her to SNF. Pt would benefit from skiled SNF progression strength and independence in mobility with improved safety strategies. Gait Assessment Gait Gait Assistance Required: Contact Guard Assist,Minimum Assistance,1 Person Assist Distance (Feet) 20 Able to Maintain Weight Bearing Status Yes During Gait Assistive Devices Assistive Device Gait Belt,Front Wheeled Walker Orthotic/Prosthetic Devices or Brace: No Gait Deviations General Gait Pattern Antalgic,Decreased Stride Length,Decreased Feet Clearance,Flexed Trunk,Step-to Gait Factors Limiting Gait Function Factors Limiting Gait Function Decreased Activity Tolerance, Decreased Strength,Difficulty Following Directions,Pain,Poor Balance,Poor Safety Awareness Comments Gait Comments see mobility comments Stair Climbing Assessment Comments Stair Climbing Comments did not assess at this time, will need complete 1 PF step to enter home when safe and able. PT-Balance Assessment Sitting Balance and Reactions Static Sitting Balance Ability Normal Dynamic Sitting Balance Ability Good Standing Balance and Reactions Static Standing Balance Ability Good Dynamic Standing Balance Ability Fair Device Used FWW M5 PT-IP Objective Assessments Start: 12/11/22 12:04 Freq: NEEDED Status: Discharge Protocol: Document 12/11/22 09:00 AB (Rec: 12/11/22 12:20 AB [id number]) Orientation Orientation/Cognition Level of Alertness Alert Orientation Name,Place,Situation Language Function Ability No Deficits Noted Safety Awareness Decreased Safety Awareness Memory Description Short Term Impaired Gross Range of Motion Lower Extremity ROM Assessment Within Functional Limits Strength Lower Extremity Strength Assessment Right Impaired Hip 3-/5 Knee 3+/5 Sensation Assessment Sensation Gross Sensation WNL Muscle Tone Muscle Tone WNL Yes M6 PT-IP Treatment Start: 12/11/22 12:04 Freq: NEEDED Status: Discharge Protocol: Document 12/13/22 15:40 SP (Rec: 12/13/22 16:30 SP [id number]) Physical Therapy Treatment Education Education Provided Precautions,Safety Other Treatments Other Treatment Performed Pt requires mod cues for hip precautions. M7 PT-IP Assessment and Plan Start: 12/11/22 12:04 Freq: NEEDED Status: Discharge Protocol: Document 12/13/22 15:40 SP (Rec: 12/13/22 16:30 SP [id number]) PT Summary Assessment and Plan Potential Rehabilitation Potential Fair Status of Condition at Evaluation Evolving Summary Impairments Pain,ROM,Strength,Balance, Coordination,Sensation,Tone, Cognition,Bed Mobility, Transfers,Gait,Activity Tolerance Progress Towards Goals Progressing Toward Goals,Slow Progress due to Pain,Slow Progress due to Activity Tolerance Assessment Summary Pt CG/ Min A during transfers and gait, safety cues for proper hand placement and Mod cues for RLE positioning to maintain precautions during mobility, 6/10 R anterolateral hip pain during WB. Pt would benefit from skiled SNF progression strength and independence in mobility with improved safety strategies. Goals Bed Mobility Goal Minimal Assistance Transfer Goal Minimal Assistance,Front Wheeled Walker Gait Goal Minimal Assistance,Front Wheel Walker Gait Distance 50 Other Goals improve bed mobility, transfers and ambulation using FWW 150 ft SBA up/down 1 step using FWW SBA Days to Meet Goals 10 Frequency of Treatment Frequency Of Treatment Twice a Day Treatment Plan Physical Therapy Treatment Plan Bed Mobility Training,Transfer Training,Gait Training, Therapeutic Exercise,Balance Retraining,Post Op Education, Discharge Planning,Hot or Cold Pack,Neuromuscular Re-ed, Coordination Retraining,Manual Therapy Other Recommendations and Next Treatment bed mob, review precautions, Focus post op ex RLE, safety strategies during transfers and gait w/ FWW. Precautions Posterior Hip Precautions No Hip Flexion > 90 degrees,No Hip Internal Rotation,No Hip Adduction Anterior Hip Precautions No Hip Extension,No Hip External Rotation Weight Bearing Status Weight Bearing Status Weight Bear as Tolerated Allowed Weight Bearing Amount (enter % RLE WBAT or #) (%) Recommendations To Nursing Amount of Assist Needed 1 Person Assist Discharge Recommendations PT Discharge Recommendations SNF Rehab Transportation Needs at Discharge Wheelchair/Cabulance
--- NOTE | 2022-12-27 11:24 | PC.NURSE ---
Late Entry: Ertapenem infusion initiated 12/11 at 10:09 complete 10:40.
== END 2022-12-13 15:58 ==
LOC: ED 11:19 → AC 11:23
PROVIDERS: Orthopaedic Surgery; Admitting Provider Orthopaedic Surgery; Emergency Provider Emergency Medicine; PCP Registered Nurse; Referring Provider Emergency Medicine; Visit Provider Orthopaedic Surgery
PROC: (CPT 27266; principal; 2022-12-10 12:45)
DX: T84.020A Dislocation of internal right hip prosthesis, initial encounter (principal); Z98.890 Other specified postprocedural states; Z96.641 Presence of right artificial hip joint; W01.0XXA Fall on same level from slipping, tripping and stumbling without subsequent striking against object, initial encounter; I10 Essential (primary) hypertension; Z20.822 Contact with and (suspected) exposure to COVID-19
CPT/HCPCS: 27266; 36415; 73502; 76000; 80053; 83690; 85014; 85018; 85025; 85610; 85730; 87635; 93005; 96365; 96366; 96375; 97116; 97162; 97530; 99283; 99284; C9803; G0378; J1335; J1642; J2270; J2405; J2704

== ENCOUNTER 2023-01-21 10:47 | Emergency (ER) | payer MEDICARE, SELFPAY ==
[2022-12-10 13:52] VITALS: BMI 27.1
[2023-01-21] VITALS (50 sets, daily range): BP systolic 99–138; BP diastolic 50–77; PULSE 52–64; RESP 11–35; TEMP 35.9; O2SAT 87–100; BMI 25.7
--- NOTE | 2023-01-21 10:55 | DI.RAD.S_ITS ---
PROCEDURE: XR PELVIS 1-2V INDICATIONS: pain TECHNIQUE: 1 view(s) of the pelvis acquired. COMPARISON: [facility], CR, XR HIP RT 1V, 01/21/2023, 12:05. [facility], CR, XR PELVIS WITH LATERAL HIP RIGHT, 12/22/2022, 14:53. FINDINGS: Bones: Right hip arthroplasty. The prosthetic femoral head is superiorly dislocated. Note is made of [id number] left hip joint degeneration. Soft tissues: Visualized bowel gas pattern is normal. No suspicious soft tissue calcifications. IMPRESSION: Right hip dislocation. Dictated by: Himanshu Hughes M.D. on 01/21/2023 at 12:29 Approved by: Himanshu Hughes M.D. on 01/21/2023 at 12:30
[2023-01-21] MEDS: MORPHINE 2 MG/ML INJ IV (11:46)
--- NOTE | 2023-01-21 12:06 | DI.RAD.S_ITS ---
PROCEDURE: XR HIP RT 1V INDICATIONS: dislocation TECHNIQUE: 2 view(s) of the hip acquired. COMPARISON: [facility], CR, XR PELVIS WITH LATERAL HIP RIGHT, 12/22/2022, 14:53. [facility], [place], XR PELVIS 1-2V, 01/21/2023, 10:55. [facility], CR, XR HIP W PEL IF DONE RT 2V, 12/07/2022, 19:07. [facility], CR, XR HIP RT 1V, 12/07/2022, 19:26. FINDINGS: Bones: Patient is status post right hip arthroplasty. There is posterior dislocation of the prosthetic femoral head. The visualized bony structures appear intact. Soft tissues: Overlying postoperative changes are noted. No suspicious soft tissue densities. IMPRESSION: Right femoral head dislocation. Dictated by: Himanshu Hughes M.D. on 01/21/2023 at 12:42 Approved by: Himanshu Hughes M.D. on 01/21/2023 at 12:43
--- NOTE | 2023-01-21 12:07 | PC.NURSE ---
pt is post op hip surgery, nov 17. it was infected and she got 6weeks of IV abx. pt came home from rehab yesterday. this morning walked to bathroom, stood up from toilet and suddenly had intense pain
--- NOTE | 2023-01-21 13:13 | ED_ITS ---
HPI - Extremity Problem General Chief complaint: Extremity Problem,Nontraumatic Stated complaint: R Hip pain Time Seen by Provider: 01/21/23 11:16 Source: patient Mode of arrival: EMS History of Present Illness HPI Narrative: Patient krystal 87-year-old female history of gout, hypertension, with recent total hip arthroplasty on 11/17/2022 presenting today with right hip abnormality. She reports that she was sitting on the toilet she went to stand up and it gave out on her. She does have the commode however she reports that her walker was maybe off to the side and maybe the toilet seat was not up high enough. She denies hitting her head but she did fall no other injuries. He denies any fever chills chest pain or shortness breath. Right leg is shortened and internally rotated Related Data Home Medications Medication Instructions Recorded Confirmed allopurinol 300 mg tablet 300 mg PO DAILY 11/10/22 12/05/22 atenolol 50 mg tablet 50 mg PO BID 11/10/22 12/05/22 hydrochlorothiazide 25 mg tablet 25 mg PO DAILY 11/10/22 12/05/22 verapamil 120 mg tablet 120 mg PO BID 11/10/22 12/05/22 Previous Rx's Medication Instructions Recorded acetaminophen 325 mg tablet 650 mg PO Q6HR #60 tabs 11/18/22 ibuprofen 400 mg tablet 400 mg PO Q6HR #60 tabs 11/18/22 oxycodone 5 mg tablet 5 mg PO Q3HR PRN Pain, Moderate 11/18/22 (4-6) #40 tabs Allergies Allergy/AdvReac Type Severity Reaction Status Date / Time No Known Drug Allergies Allergy Verified 01/21/23 11:03 Review of Systems Review of Systems ROS Unobtainable: All systems reviewed & are unremarkable except as noted in HPI and below Patient History Medical History Essential hypertension Gout HTN (hypertension) Osteoarthritis Surgical History History of right hip replacement History of total right knee replacement (2001) Hx of appendectomy Hx of tonsillectomy Family History Mother Old age Father Alcoholism Social History household members: none Smoking Status: Former smoker alcohol intake: current 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 HEENT: Head atraumatic,EOMI, pupils reactive, face symmetric, moist mucous membranes CARDIOVASCULAR: Regular rate and rhythm without murmurs, rubs or gallops. RESPIRATORY: Breath sounds equal bilaterally, no wheezes rales or rhonchi. ABDOMEN: Soft, nontender. Normoactive bowel sounds all 4 quadrants. No guarding or rebound. EXTREMITIES: Normal range of motion, no clubbing or edema. Neurovascularly intact. Right leg shortened and internally rotated distal pedal pulse intact NEUROLOGICAL: Alert and oriented x4. SKIN: Warm, dry, no laceration, no petechiae, no rashes or lesions. Procedures Orthopedic Joint Reduction Joint #1: Time Out Performed: Yes Side: right Joint Reduction Location: hip Analgesia: procedural sedation Technique used: traction/counter-traction Post-reduction neuro exam: intact and no change Post-reduction vascular: intact and no change Post Reduction X-Ray Obtained: Yes Post Reduction X-Ray Results: reduced Patient Tolerated Procedure: Well Procedural Sedation Consent signed: Yes ASA Class: II Mallampati Airway Classification: Class II IV Propofol dose (mg): 50 Intraservice time/total sedation time (min): 12 ED Sedation Level: Moderate (Concious) Patient Tolerated Procedure: Well Complications: hypoxia Interventions: Assist by BVM Course Orders Ordered: ED Orders 01/21/23 10:55 XR pelvis 1-2V Stat 01/21/23 12:06 XR hip RT 1V Stat 01/21/23 13:51 XR pelvis 1-2V Stat Discontinued Medications Morphine Sulfate (Morphine 2 Mg/Ml Inj) 2 mg IV NOW ONE Stop: 01/21/23 11:40 Last Admin: 01/21/23 11:46 Dose: 2 mg Documented By: MINDA Propofol (Propofol 200 Mg/20 Ml Vial) 80 mg 1 mg/kg (80 mg) IV NOW ONE Stop: 01/21/23 13:29 Last Admin: 01/21/23 13:45 Dose: 50 mg Documented By: NR Vital Signs Vital signs: Vital Signs - 8 hr 01/21/23 11:30 01/21/23 11:43 01/21/23 11:43 Pulse Rate 53 L 53 L Respiratory Rate 16 16 Blood Pressure 132/60 Pulse Oximetry 92 98 Oxygen Delivery Method 01/21/23 11:45 01/21/23 11:45 01/21/23 12:00 Pulse Rate 55 L Respiratory Rate 14 Blood Pressure 118/58 L 135/61 Pulse Oximetry 95 Oxygen Delivery Method 01/21/23 12:00 01/21/23 12:12 01/21/23 12:12 Pulse Rate 52 L 55 L Respiratory Rate 16 Blood Pressure 138/77 Pulse Oximetry 96 96 Oxygen Delivery Method 01/21/23 12:19 01/21/23 12:20 01/21/23 12:25 Pulse Rate 53 L 55 L 54 L Respiratory Rate Blood Pressure Pulse Oximetry 98 97 100 Oxygen Delivery Method 01/21/23 12:30 01/21/23 12:35 01/21/23 12:40 Pulse Rate 54 L 52 L 54 L Respiratory Rate Blood Pressure Pulse Oximetry 98 98 97 Oxygen Delivery Method 01/21/23 12:45 01/21/23 12:50 01/21/23 12:55 Pulse Rate 54 L 53 L 54 L Respiratory Rate 24 11 L 13 Blood Pressure Pulse Oximetry 98 98 97 Oxygen Delivery Method 01/21/23 13:00 01/21/23 13:05 01/21/23 13:10 Pulse Rate 54 L 53 L 54 L Respiratory Rate 16 13 13 Blood Pressure Pulse Oximetry 98 97 96 Oxygen Delivery Method 01/21/23 13:15 01/21/23 13:20 01/21/23 13:25 Pulse Rate 54 L 61 57 L Respiratory Rate 14 24 14 Blood Pressure Pulse Oximetry 96 95 97 Oxygen Delivery Method 01/21/23 13:30 01/21/23 13:35 01/21/23 13:40 Pulse Rate 58 L 56 L 57 L Respiratory Rate 14 16 22 Blood Pressure Pulse Oximetry 97 96 97 Oxygen Delivery Method 01/21/23 13:45 01/21/23 13:45 01/21/23 13:50 Pulse Rate 63 Respiratory Rate 28 H Blood Pressure 130/59 L 107/51 L Pulse Oximetry 100 Oxygen Delivery Method 01/21/23 13:50 01/21/23 13:55 01/21/23 13:55 Pulse Rate 55 L 52 L Respiratory Rate 25 H 30 H Blood Pressure 106/51 L Pulse Oximetry 99 100 Oxygen Delivery Method 01/21/23 14:00 01/21/23 14:00 01/21/23 14:05 Pulse Rate 54 L Respiratory Rate 28 H Blood Pressure 104/50 L 120/55 L Pulse Oximetry 100 Oxygen Delivery Method 01/21/23 14:05 01/21/23 14:10 01/21/23 14:12 Pulse Rate 54 L 60 Respiratory Rate 19 Blood Pressure 115/54 L Pulse Oximetry 98 Oxygen Delivery Method 01/21/23 14:12 01/21/23 14:15 01/21/23 14:15 Pulse Rate 59 L 56 L Respiratory Rate 27 H 29 H Blood Pressure 119/58 L Pulse Oximetry 99 98 Oxygen Delivery Method Room Air 01/21/23 14:20 01/21/23 14:20 01/21/23 14:25 Pulse Rate 55 L Respiratory Rate 32 H Blood Pressure 115/54 L 112/57 L Pulse Oximetry 97 Oxygen Delivery Method 01/21/23 14:25 01/21/23 14:30 01/21/23 14:30 Pulse Rate 54 L 54 L Respiratory Rate 31 H 35 H Blood Pressure 120/58 L Pulse Oximetry 98 99 Oxygen Delivery Method 01/21/23 14:35 01/21/23 14:35 01/21/23 14:40 Pulse Rate 54 L Respiratory Rate 27 H Blood Pressure 117/58 L 115/56 L Pulse Oximetry 98 Oxygen Delivery Method 01/21/23 14:40 01/21/23 14:45 01/21/23 14:45 Pulse Rate 54 L 54 L Respiratory Rate 33 H 35 H Blood Pressure 121/58 L Pulse Oximetry 98 99 Oxygen Delivery Method 01/21/23 14:50 01/21/23 14:50 01/21/23 14:55 Pulse Rate 55 L Respiratory Rate 32 H Blood Pressure 121/58 L 115/58 L Pulse Oximetry 99 Oxygen Delivery Method 01/21/23 14:55 01/21/23 15:00 01/21/23 15:00 Pulse Rate 56 L 59 L Respiratory Rate 33 H 30 H Blood Pressure 131/60 Pulse Oximetry 98 92 Oxygen Delivery Method 01/21/23 15:05 01/21/23 15:05 01/21/23 15:10 Pulse Rate 57 L Respiratory Rate 27 H Blood Pressure 124/58 L 136/60 Pulse Oximetry 97 Oxygen Delivery Method 01/21/23 15:10 01/21/23 15:15 01/21/23 15:16 Pulse Rate 57 L 55 L 57 L Respiratory Rate 35 H 23 34 H Blood Pressure Pulse Oximetry 97 97 87 L Oxygen Delivery Method 01/21/23 15:16 01/21/23 15:20 01/21/23 15:20 Pulse Rate 58 L Respiratory Rate 23 Blood Pressure 128/60 122/58 L Pulse Oximetry 96 Oxygen Delivery Method 01/21/23 15:25 01/21/23 15:25 Pulse Rate 64 Respiratory Rate 29 H Blood Pressure 109/53 L Pulse Oximetry Oxygen Delivery Method MDM - Extremity (Nontraumatic) Lab Data Labs: Point of Care Testing Test Results Not applicable Imaging Data Extremity x-ray #1: Radiologist's Impression: PROCEDURE:? XR PELVIS 1-2V ? INDICATIONS:? pain ? TECHNIQUE:? 1 view(s) of the pelvis acquired.? ? COMPARISON:? [facility], , XR HIP RT 1V, 01/21/2023, 12:05.? [facility], , XR PELVIS WITH LATERAL HIP RIGHT, 12/22/2022, 14:53. ? FINDINGS:? ? Bones:? Right hip arthroplasty.? The prosthetic femoral head is superiorly dislocated.? Note is made of [id number] left hip joint degeneration.? ? Soft tissues:? Visualized bowel gas pattern is normal.? No suspicious soft tissue calcifications.? ? IMPRESSION:? Right hip dislocation. ? ? Dictated by: Himanshu Hughes M.D. on 01/21/2023 at 12:29 ? ? Extremity x-ray #2: Radiologist's Impression: PROCEDURE:? XR HIP RT 1V ? INDICATIONS:? dislocation ? TECHNIQUE:? 2 view(s) of the hip acquired.? ? COMPARISON: [facility], CR, XR PELVIS WITH LATERAL HIP RIGHT, 12/22/2022, 14:53.? [facility], , XR PELVIS 1-2V, 01/21/2023, 10:55.? [facility], XR HIP W PEL IF DONE RT 2V, 12/07/2022, 19:07.? [facility], CR, XR HIP RT 1V, 12/07/2022, 19:26. ? FINDINGS:? ? Bones:? Patient is status post right hip arthroplasty.? There is posterior dislocation of the prosthetic femoral head.? The visualized bony structures appear intact.? ? Soft tissues:? Overlying postoperative changes are noted.? No suspicious soft tissue densities.? ? ? IMPRESSION:? Right femoral head dislocation. ? ? ? Dictated by: Himanshu Hughes M.D. on 01/21/2023 at 12:42 ? Extremity x-ray #3: Radiologist's Impression: PROCEDURE:? XR PELVIS 1-2V ? INDICATIONS:? post reduction ? TECHNIQUE:? 1 view of the lower pelvis acquired.? ? COMPARISON:? [facility], CR, XR PELVIS 1-2V, 01/21/2023, 10:55. ? FINDINGS:? ? Bones:? Interval reduction of the right total hip arthroplasty.? The arthroplasty appears well-aligned, and intact. ? Soft tissues:? Overlying postoperative changes are noted.? No suspicious soft tissue densities.? ? ? IMPRESSION:? Successful postreduction based on this single view series.? No displaced fracture. ? MDM Narrative Medical decision making narrative: Patient is an 87-year-old female who presents with a post total hip arthroplasty with hip dislocation appears to be a posterior. She tolerated procedure sedation very well required some bagging and hip was easily reduced. After discussing it with her son the seat on the toilet was not raised to be high enough for her and her walker was not inappropriate place. They report that this is an easy fix and they will raise the toilet seat and have her use a different toilet in the house so that her walker can be directly in front of her and she is not twisting and turning. We have gone over discharge instructions including no hip flexion an appropriate body movements. They understand they have gone over this previously. She reports that she does not need any further pain medication she has postoperative pain meds she is not need anything now. She is able to ambulate. Dr. Kerr is also aware of patient and hip dislocation. No contraindication for reduction. Discharge Plan Departure Patient Disposition: Home Clinical Impression: Hip dislocation, right Instructions: Hip Dislocation Activity Restrictions/Additional Instructions: *You have been diagnosed with right hip dislocation *What to do: Will be sore for a couple of days. Please take Tylenol as needed Sit with your back straight and your feet flat on the floor. Do not cross your legs. ... Keep your knees apart. ... Do not sit in a low chair. ... 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 *Continue to take medications as directed *Follow up with your primary care provider in 2-3 days or call [phone] *Return to ER if you should have a recurrent dislocation pain swelling [or] any new, worsening or concerning symptoms Prescriptions: No Action verapamil 120 mg Tablet 120 mg PO BID allopurinol 300 mg Tablet 300 mg PO DAILY hydrochlorothiazide 25 mg Tablet 25 mg PO DAILY atenolol 50 mg Tablet 50 mg PO BID acetaminophen 325 mg Tablet 650 mg PO Q6HR Qty: 60 0RF ibuprofen 400 mg Tablet 400 mg PO Q6HR Qty: 60 0RF oxycodone 5 mg Tablet 5 mg PO Q3HR PRN (Reason: Pain, Moderate (4-6)) Qty: 40 0RF Referrals: Jackie Castellanos ARNP [Primary Care Provider] - Michelle Kerr MD [Physician] - Stand Alone Forms: Patient Portal/API
[2023-01-21] MEDS: propofoL 200 MG/20 ML VIAL 80 MG IV (13:45)
--- NOTE | 2023-01-21 13:51 | DI.RAD.S_ITS ---
PROCEDURE: XR PELVIS 1-2V INDICATIONS: post reduction TECHNIQUE: 1 view of the lower pelvis acquired. COMPARISON: [facility], , XR PELVIS 1-2V, 01/21/2023, 10:55. FINDINGS: Bones: Interval reduction of the right total hip arthroplasty. The arthroplasty appears well-aligned, and intact. Soft tissues: Overlying postoperative changes are noted. No suspicious soft tissue densities. IMPRESSION: Successful postreduction based on this single view series. No displaced fracture. Dictated by: Riki Muñoz M.D. on 01/21/2023 at 14:19 Approved by: Riki Muñoz M.D. on 01/21/2023 at 14:20
--- NOTE | 2023-01-21 14:03 | PC.NURSE ---
procedure done by Dr. Reynolds. pt placed supine. pressure applied to right hip by Nurse per MD instructions. 2L NC prior to start of procedure by RT. BVM @ 15L and chin tilt jaw thrust utilized between [id number]. then patient awoke from procedure and was placed back on 2L precautionary for 5min. Oxygen saturation remained above 95% for entire procedure
== END 2023-01-21 15:55 | disposition home or self-care (01) ==
PROVIDERS: Emergency Provider Emergency Medicine; PCP Registered Nurse
DX: T84.020A Dislocation of internal right hip prosthesis, initial encounter (principal)
CPT/HCPCS: 27265; 72170; 73501; 96374; 99152; 99284; J2270; J2704